=== PATIENT | female | born 1975 | race Caucasian/White ===

== ENCOUNTER 2022-11-15 08:50 | Outpatient (OUT) | payer OTHER, SELFPAY ==
--- NOTE | 2022-11-15 08:52 | MM_ITS ---
Patient: SUSHMA LEWIS Exam Date: 11/15/2022 : 1975 Gender:F Ordering : Non-Staff Physician Admission #: [id number] Family : Order #: [id number] CLICK HERE TO VIEW EXAM RADIOLOGY REPORT PROCEDURE: MM TOMOSYNTHESIS SCREENING BI COMPARISON: MG MAMM SCREEN ROHAN W CAD, 12/25/2018. MG MAMM SCREEN 3D ROHAN CAD, 02/02/2021. INDICATIONS: Calculator Name NCI Breast Cancer Risk Assessment Tool 5 Year Breast Cancer Risk 1.10% Lifetime Breast Cancer Risk 11.30% Personal Breast Cancer No Personal Ovarian Cancer No Treatments None Family Cancers Grandfather-maternal with prostate cancer at age 61. LOCATION: [facility] BREAST COMPOSITION: Scattered areas fibroglandular density. FINDINGS: DIAGNOSTIC CATEGORY 0--INCOMPLETE: NEED ADDITIONAL IMAGING EVALUATION. Scattered benign-appearing calcifications are present. RIGHT BREAST: New 8.6 x 5.2 mm ill defined nodule medial posterior breast on cc imaging only. Spot compression and ultrasound follow up is recommended. Axillary nodule, likely a normal lymph node, partially visualized. LEFT BREAST: No significant suspicious finding. RECOMMENDATIONS: ADDITIONAL MAMMOGRAPHIC VIEWS REQUIRED: RIGHT BREAST - spot compression view ULTRASOUND: RIGHT BREAST PLEASE NOTE: A NORMAL MAMMOGRAM DOES NOT EXCLUDE THE POSSIBILITY OF BREAST CANCER. A CLINICALLY SUSPICIOUS PALPABLE LUMP SHOULD BE BIOPSIED. Dictated by: Gary Smith MD on 11/15/2022 at 10:43 Approved by: Gary Smith MD on 11/15/2022 at 10:47
--- NOTE | 2022-11-15 09:14 | US_ITS ---
The [address] [address] Patient Name: SUSHMA LEWIS MRN: [id number] date: 1975 Sex: F Assigned Patient Location: [facility] Current Patient Location: [facility] Accession/Order Number: [id number] Exam Date: 11/15/2022 09:15 Report Date: 11/15/2022 09:47 At the request of: NON-STAFF PHYSICIAN Procedure: US thyroid EXAMINATION: US thyroid HISTORY: History Of Thyroid Cancer, Micro Carcinoma COMPARISON: No relevant comparison available. TECHNIQUE: Sonographic images of the thyroid gland were obtained. FINDINGS: The thyroid gland is not definitively visualized consistent with provided history of thyroidectomy in 2018. Identified in the left thyroid fossa is a focal area of hypoechogenicity measuring 0.6 x 0.3 x 0.2 cm, nonspecific US/US thyroid IMPRESSION: 0.6 cm area of hypoechogenicity in the left thyroid fossa, nonspecific Electronically authenticated by: MULUGETA CARRERA Date: 11/15/2022 09:47
== END 2022-11-15 08:51 | disposition home or self-care (01) ==
LOC: MAMMO 08:50
DX: Z12.31 Encounter for screening mammogram for malignant neoplasm of breast (principal); E03.9 Hypothyroidism, unspecified; Z80.42 Family history of malignant neoplasm of prostate; R92.8 Other abnormal and inconclusive findings on diagnostic imaging of breast
CPT/HCPCS: 76536; 77063; 77067

== ENCOUNTER 2022-12-06 10:50 | Outpatient (OUT) | payer OTHER, SELFPAY ==
--- NOTE | 2022-12-06 10:55 | US_ITS ---
Patient: SUSHMA LEWIS Exam Date: 12/06/2022 : 1975 Gender:F Ordering : DR Wilman Griffiths . Admission #: [id number] Family : Non-Staff Physician Order #: [id number] CLICK HERE TO VIEW EXAM RADIOLOGY REPORT PROCEDURE: MM DIAGNOSTIC MAMMO UNILAT RT, 12/06/2022, 10:44 US BREAST RT LIMITED, 12/06/2022, 11:15 COMPARISON: MM TOMOSYNTHESIS SCREENING BI, 11/15/2022. INDICATIONS: Abnormal mammogram R92.8 Calculator Name NCI Breast Cancer Risk Assessment Tool 5 Year Breast Cancer Risk 1.10% Lifetime Breast Cancer Risk 11.10% Personal Breast Cancer No Personal Ovarian Cancer No Treatments None Family Cancers Grandfather-maternal with prostate cancer at age 61. LOCATION: [facility] [place] BREAST COMPOSITION: Scattered areas fibroglandular density. FINDINGS: DIAGNOSTIC CATEGORY 3--PROBABLY BENIGN FINDING. THE FOLLOWING FINDING(S) HAS A HIGH PROBABILITY OF A BENIGN ETIOLOGY: [place] marker on the left and breast indicates a skin lesion. Deep to this triangle markers is an 8.6 x 5.3 mm well-circumscribed oval nodule. Ultrasound demonstrates a 5.2 x 2.7 x 7.4 mm heterogeneous lesion reason the skin superficial to the subcutaneous fat pending peripheral hypoechogenicity and central mixed anechoic and hypoechogenic features the. I favor epidermal inclusion or sebaceous cyst. Further evaluation should be based on physical and clinical exam. RECOMMENDATIONS: CLINICAL EVALUATION. PLEASE NOTE: A NORMAL MAMMOGRAM DOES NOT EXCLUDE THE POSSIBILITY OF BREAST CANCER. A CLINICALLY SUSPICIOUS PALPABLE LUMP SHOULD BE BIOPSIED. Dictated by: Gary Smith MD on 12/06/2022 at 11:37 Approved by: Gary Smith MD on 12/06/2022 at 11:40
== END 2022-12-06 10:51 | disposition home or self-care (01) ==
LOC: MAMMO 10:51
PROVIDERS: Visit Provider Obstetrics & Gynecology
DX: R92.8 Other abnormal and inconclusive findings on diagnostic imaging of breast (principal)
CPT/HCPCS: 76642; 77065

== ENCOUNTER 2023-03-22 19:22 | Outpatient (REF) | payer OTHER, SELFPAY ==
[2023-03-28 15:13] LABS: Age Gdln ACOG Testing Note (.); HPV Aptima Negative (Negative); IGP, Aptima HPV, rfx 16/18,45 Note (.)
== END 2023-03-22 19:23 | disposition home or self-care (01) ==
LOC: LAB 19:22
PROVIDERS: Visit Provider Obstetrics & Gynecology
DX: Z01.419 Encounter for gynecological examination (general) (routine) without abnormal findings (principal)
CPT/HCPCS: 87624; G0145

== ENCOUNTER 2023-10-19 14:00 | Outpatient (OUT) | payer OTHER, SELFPAY ==
--- NOTE | 2023-10-19 | MM_ITS ---
Patient Name: SUSHMA LEWIS MR#: [id number] : 1975 Exam Date: 10/19/2023 Ordering Doctor: DR Wilman Griffiths . RADIOLOGY REPORT PROCEDURE: MM TOMOSYNTHESIS DIAGNOSTIC BI, 10/19/2023, 14:19 US BREAST RT LIMITED, 10/19/2023, 14:52 COMPARISON: US BREAST RT LIMITED, 12/06/2022. MM DIAGNOSTIC MAMMO UNILAT RT, 12/06/2022. INDICATIONS: Screening for malignanat neoplasm Calculator Name NCI Breast Cancer Risk Assessment Tool 5 Year Breast Cancer Risk 1.10% Lifetime Breast Cancer Risk 11.10% Personal Breast Cancer No Personal Ovarian Cancer No Treatments None Family Cancers Grandfather-maternal with prostate cancer at age 61. LOCATION: [facility] BREAST COMPOSITION: There are scattered areas of fibroglandular density. FINDINGS: DIAGNOSTIC CATEGORY 2--BENIGN FINDING. NO CHANGE FROM COMPARISON. Scattered benign-appearing nodules are present. Scattered benign-appearing calcifications are present. Scattered benign-appearing lymph nodes are present. RIGHT BREAST: In the region of the patient's skin tag upper inner quadrant, posterior breast no mammographic abnormality is observed. Ultrasound demonstrates at the 2 o'clock position a 4.2 x 2.4 x 5.3 mm area of hypo echogenicity with anterior hyperechogenicity possibly calcification but no internal blood flow. This lesion appears stable from the prior exam. The differential diagnosis is unchanged and I favor a benign process such as a sebaceous or epidermal inclusion cyst LEFT BREAST: No significant suspicious finding. RECOMMENDATIONS: ROUTINE MAMMOGRAM AND CLINICAL EVALUATION IN 12 MONTHS. PLEASE NOTE: A NORMAL MAMMOGRAM DOES NOT EXCLUDE THE POSSIBILITY OF BREAST CANCER. A CLINICALLY SUSPICIOUS PALPABLE LUMP SHOULD BE BIOPSIED. Dictated by: Gary Smith MD on 10/19/2023 at 16:00 Approved by: Gary Smith MD on 10/19/2023 at 16:02
== END 2023-10-19 14:01 | disposition home or self-care (01) ==
LOC: MAMMO 14:01
PROVIDERS: Visit Provider Obstetrics & Gynecology
DX: Z12.31 Encounter for screening mammogram for malignant neoplasm of breast (principal); R92.8 Other abnormal and inconclusive findings on diagnostic imaging of breast; Z80.42 Family history of malignant neoplasm of prostate
CPT/HCPCS: 76642; 77066; G0279

== ENCOUNTER 2023-10-29 11:24 | Outpatient (OUT) | payer OTHER, SELFPAY ==
--- NOTE | 2023-10-29 11:30 | US_ITS ---
The [address] [address] Patient Name: SUSHMA LEWIS MRN: [id number] date: 1975 Sex: F Assigned Patient Location: [place] Current Patient Location: [place] Accession/Order Number: [id number] Exam Date: 10/29/2023 11:35 Report Date: 10/29/2023 13:02 At the request of: NON-STAFF PHYSICIAN Procedure: US thyroid EXAMINATION: US thyroid HISTORY: Hypoparathyroidism After Surgical Removal Of Thyroid COMPARISON: 11/15/2022 TECHNIQUE: Sonographic images of the thyroid gland were obtained. FINDINGS: Identified in the right thyroid fossa is a 2.0 x 0.6 x 1.2 cm oval lymph node with normal thin cortex measuring measuring 1.8 mm and hypervascular hyperechogenic hilum Identified in the left thyroid fossa is a area of hypoechogenicity measuring 0.6 x 0.2 x 0.3 cm, nonspecific US/US thyroid IMPRESSION: Normal size normal morphology right lymph node 6 mm indeterminate lesion left thyroid fossa, stable from the prior exam. Stability over the course of one year suggests a benign process Electronically authenticated by: MULUGETA CARRERA Date: 10/29/2023 13:02
--- OUTSIDE RECORDS SUMMARY | 2023-10-29 11:46 | XMS_ITS | CCD ---
Author Organization [facility] Care Team Providers Care Merchandise Collector Name Role Phone DR EDITH JOHN Admitting Unavailable DORA, DR SHARMA Attending Unavailable GILA, DR SOTELO A Primary Care Unavailable DORA, DR SHARMA Consulting Unavailable DORA, DR SHARMA Admitting Unavailable DORA, DR SHARMA Attending Unavailable GILA, DR DEEPAK Dao Primary Care Unavailable DORA, DR SHARMA Consulting Unavailable None, No PCP Unavailable Unavailable Unavailable Unavailable Dr. Deepak Rice Referring Unavaila ble Finn, Dr. Ayala Attending Unavailable Finn, Dr. Ayala Referring Unavailable Finn, Dr. Ayala Attending Unavailable DEEPAK RICE Primary Care Unavailable Fleming PACAramis Attending Unavailable Fleming PACAramis Admitting Unavailable DEEPAK RICE Primary Care Unavailable EDITH JOHN Attending Unavailable Allergies Allergy Classification Reported Allergen(s) Allergy Type Date of Onset Reaction(s) Facility (2 sources) Amoxicillin; Translations: [amoxicillin] Drug Allergy [facility] Repository (6 sources) Amoxicillin; Translations: [Amoxicillin TABS] Drug Allergy [id number] Work Phone: Medications Completed/Discontinued Medications Medication Drug Class(es) Dates Sig (Normalized) Sig (Original) citalopram 10 mg oral tablet (2 sources) Serotonin Reuptake Inhibitor CeleXA 10 MG Oral Tablet Quantity: 0 Refills: 0 Ordered: 23-Nov-2022 DO Active ergocalciferol 1.25 mg oral capsule (5 sources) Provitamin D2 Compound Start: 05-24-2022 take 1 capsule by mouth every week Ergocalciferol 1.25 MG (74810 UT) Oral Capsule TAKE 1 CAPSULE WEEKLY. Quantity: 13 Refills: 3 Ordered: 23-Nov-2022 Jamie Finn MD Start : 24-May-2022 Active levothyroxine sodium 0.125 mg oral tablet (2 sources) l-Thyroxine Start: 10-25-2022 take 1 tablet by mouth once daily Levothyroxine Sodium 125 MCG Oral Tablet TAKE 1 TABLET DAILY. Quantity: 90 Refills: 2 Ordered: 23-Nov-2022 Jamie Finn MD Start : 25-Oct-2022 Active lisinopril 5 mg oral tablet (2 sources) Angiotensin Converting Enzyme Inhibitor Lisinopril 5 MG Oral Tablet Quantity: 0 Refills: 0 Ordered: 23-Nov-2022 DO Active 24 hr metFORMIN hydrochloride 500 mg extended release oral tablet (2 sources) Biguanide take 1 tablet by mouth every twenty-four hours metFORMIN HCl ER 500 MG Oral Tablet Extended Release 24 Hour Quantity: 0 Refills: 0 Ordered: 23-Nov-2022 DO Active Slynd TABS (2 sources) Slynd TABS Quantity: 0 Refills: 0 Ordered: 23-Nov-2022 DO Active Problems Problem Classification Problem Date Documented Date Episodic/Chronic Cancer of thyroid (8 sources) Papillary thyroid carcinoma; Translations: [Malignant neoplasm of thyroid gland] Chronic Complications of surgical procedures or medical care (6 sources) Postprocedural hypoparathyroidism; Translations: [Hypoparathyroidism after surgical removal of thyroid gland] Chronic Diabetes mellitus without complication (6 sources) Prediabetes; Translations: [Other abnormal glucose] Episodic Immunizations and screening for infectious disease (1 source) Encounter for screening for human papillomavirus (HPV); Translations: [ENC SCREENING HUMAN PAPILLOMAVIRUS] Onset: 03-14-2022 Episodic Nutritional deficiencies (5 sources) Vitamin D deficiency; Translations: [Unspecified vitamin D deficiency] Chronic Other screening for suspected conditions (not mental disorders or infectious disease) (4 sources) Encounter for screening for malignant neoplasm of cervix; Translations: [ENC SCREENING MALIG NEOPLASM CERV] Onset: 03-13-2022 Episodic Thyroid disorders (7 sources) Hypothyroidism, unspecified; Translations: [Hypothyroidism] Onset: 03-14-2022 Chronic Results Test Name Value Interpretation Reference Range Facility HgbA1c Standardon 12-01-2022 .Hb 14.6 Invalid Interpretation Code [facility] Comment on above: Performed By: #### 1 [id number] #### [facility] (DEFAULT) [address] [place] [address] .Hgb A1c 0.58 g/dL Invalid Interpretation Code [facility] Comment on above: Performed By: #### 1 [id number] #### [facility] (DEFAULT) [address] [place] [address] Glucose [Mass/Vol] 117 mg/dL Invalid Interpretation Code [facility] Comment on above: Performed By: #### 1 [id number] #### [facility] (DEFAULT) [address] [place] [address] HbA1c (Bld) [Mass fraction] 5.7 % Normal 4.6-6.2 [facility] Comment on above: Performed By: #### 1 [id number] #### [facility] (DEFAULT) [address] [place] [address] Chart Updateon 11-30-2022 Chart Update Chart Update US thyroid reviewed 11/15/22 - Non specific 0.6 cm hypoechoic left thyroid area which seems non specific TSH 0.42 on 11/28/22 Signatures Electronically signed by : Jamie Finn MD; Nov 30 2022 4:13PM EST (Author) Normal Touchworks Coding Summaryon 11-29-2022 Coding Summary HTMLBase 64 XdlqdtikCIl9bOc+PGhl YWQ+YN6HUVXgA40zvLNw tC7eN6ZCOLmOHskwEMME YFdMJbFvfiXiRJ1haLAt ZXJu IC8+IK7lESLdOhcrzSZz q8J2hKC1A95cbn9cNGjj qWG3MRNfFuXuvkmyv5ve nYe8PNfyAdfnDiZe ECOmoY23RJA2dQ11Xi25 aLDjxVThl7hexJr1HcQm JBXwVVD4bXbpLQcap0Ss MGPtQ67djIEmh0F6 IGNvbGxhcHNlOyBlbXB0 wY8pMCjtknsyz5npplov Wme6ih97wLAqf1L2vBN6 N4ZmzlW3DKWyiUUy AwqjbECXpM8mikowx2vi geolGdAlJDIoGWl4HBv5 LCPmhYtjSfKhSD09IIY1 HLDkrgNcD1RbZCOd tMtwIdL3d4V4Vy5BO8SK WmqtA8ZNYQAYCKgxfVE+ ZU15fs39H2QrGukyRwn6 ACEgDCS0rNW9xB9f KCVeGFatv3B6pGE5R1Bd kaRoxx2ki2ufPLSpWSaz R93xqKQnh3O1UFQesCB8 HPRbxWntNoEyaF10 Oyc+QEKaqSfch0RaZsmq r2rgt3scaNe8FqttCGNl eyCyaZepFLL8x3VuEq1n YEOawLU8fWU1yR4y JiWmFwJ3RGobL708KkVn uYFnMswfQ88jG0FxcAC+ RFQaYiw3PQYzvNmlIZ7x R3VjTDUmuoasyIBt pYcqHO8qKPWxllplHFLz pZ0rSQHsP4j3QmTsWkN0 RYxxT9XcXNKpdlgjEp33 cO2rLpLmKzC2FYah I3SepcW3MZAiaGHcTFmv GXB4Q42mp0L2LUUqGEXp SZJ7jSE3hO6qnSzhaing bGVmdDsgdmVydGlj LEykAPilG071HDNagOpy PkNvZGluZyBEYXRlOiAg MDgvMDkvMjAyMzwvdGQ+ XHOqTCW8sDdsMOFm uBKnXZdhLd9tyNzhzGhk HM3bPPFniyyiUKFahA3q IAZtdOWjwCqgWM1yKTGs carkr468GrZtHTJ5 WIVmeYJvZ0NhvS4fZeJl AEIgQPPaW2AoaRJpQJvl H384OStkQfL7QTXulwMh T9ZnROEodKhqHiQ7 j0L9Fr1Xr5RbnmdyN7Zr vXIoYpDwXgevEIz5C9Ay PjwvdHI+JN67FATqUM98 PXu8MZE5tMymHFqo MEFoZ7HrmL1iWrMaEBEg ZGRkOyc+PHRhYmxlIHdp ZHRoPScxMDAlJyBzdHls ZF1vWb6kDNOaYDVs dJpfxKDaMmPnu7qnHBZt LOroKK6bbFhzW2VphFI3 PIUgi4k2Yk26T02oF8Zz dXA+UUXhxMH6pMN0 xI9qLmPmMsZ7JJwpZ824 KnLrzUQyEtvyn0sgq3pt gAw5GlF1XPMnxkXnkStr KYP0u4NcGx16J98b IHdpZHRoPSIxNSUiIHZh nPpoaj0sgG5sQe8+PGNv bNH3jYV1dH0qDgYsUsV4 BYnpR956UdXzyUCi Vjjwm9dhe2jdrGi1ZwGe XWYqdcTsxOkfBHJ4z0Zc Ht13Y4MxmWlcy1NqDrq7 we78xAHlj2B0jJU0 N9KvGZIlqjqxuREndScg VT8qHOKxwngvDLBadV4k KPWbK9l6MiUqFtD9FEwd N0VubcI8LLIdoEHq SKAeaWDAfQ1ymirzh1lz vimwLxLlPDZmUWp0DWs5 QMYogBauLuLdTSW2UuN2 YNF4fBBffE9emFbd hemgoT7rXam+YNK8gRIy bGYXOD6uUwmqhRT+PHRk FVD0zRhqOHcyTVNnjL5c ZTIxN1v0FwTaBqF0 YKieJ9DvohW1PTSyyQTh APSyrFGRdE0gwzlys0ke lgdhBmTwTTJvAFg4KKr9 LWFsaWduOiBsZWZ0 UyX3FZD4tEBnmM2asKwm douxdN1yJdj+QmlydGgg IQL5EOz8E5NgTxj1IQTa bXwzYP6ahXFhWTcw Xi5teXoukRiuQF0tGJZl qvgcz771NjVac0qtQUAz pVPbZIvgLLI8Y30ps5G7 YUSqEKKtHEH9fWM3 kE8deAkonrubnKYkeWpg tuUsbXwvSOtkMFmiA840 RPOxxVjeZjKsHCb3S0Wn Wlr0HIPykHgmII8q uNKlPAaiGa3niRlhaYev LG6aYGNqlzedh083QkYv q1cwHSMgdTBeVOoyZIX1 Y33hi3K9ANOoTHQy RQH1qTD8bV5wsKcwtonr bGVmdDsgdmVydGljYWwt YDkoB861RVFbzOofOrEl kOg8E1BfZkx4FOYs jUrwVR7chIKyZZqoSr6d kJebaWceWY3gEPKyhbxj u163WeGoe5yxSLPanRUs KEhhWXY9H27fj2H7 PNOuIVVaLAF9qKS9nI7q bGlnbjogbGVmdDsgdmVy nPrkDRfgAEooB236VUHi cDsnPlBhdGllbnQg MObvQNd1I2GyFaktqIB+ CK19NQDwTB93yZIvmJUu r1btcEp1VzOlWUHlGNF0 iUtpEZqdh4IsRQEl A14fmUKaq4O2NZLvmYok tGSvVqMdbFS7mZ0vYWbz xwkmw1ytyqykJelst0pr mu89hC34K01yOVfv ZHRoPSIzMCUiIHZhbGln jf3qvY5mBd9+PGNvbCB3 eJV5qL9rUHIfFkJ6IKpk Y175OnUwbQRcZoee y8kmy5qhbOd6TnS4YHPr xbKoeAskNDM9t0QyWc39 H19lPTonIPCcCKPtQDJn FDMzsRnxyw4gfG3k Ii8+WCOciOY1gPF9qA3l JfMrYoW9JGnlL667IuIq zQKwUtidV20rZ8PhhUB+ EVGiZzx0RSGfxBtj PA3gfNOjWPotTb1pTEW4 GwLwJlMnZNieK3HmUEEr sjadhtfqnJO8NJIzCOLu oW08Nd9vdLbsTLRn lPFGoW4wblwjl0pbauvx VpUmBKHhEFa3VXb9SBRq fRqlSzHbVMB9TwB0VWT0 vFEcgE2emLfhhbzw uX4wF1BuVWUqexplYv27 kG2bInGqPxP8DPqrSwu+ X25RDJacMB5CPCOIUUMO PD97QR23lFDai8R0 kCC3E0DrMZZunywkurdp kRW8UHDaMLVciZ29hOCw BStvXi2rk7Y1q164DUJb NDYgfB32Fg6quRps WPBewNYTgD7nlevyw3gd ggfmGcSwIWKkXPf9UPm6 REMoxCnwEoIbOIP4YzU1 DDD6mNRtyC1ghSek kmwqlK9lFrh+MDcvMzEv SWz8NZoqiXT+PHRkIHN0 iJtmGOqeYOOipN1pAQHy X4p4XwPkGcV7UJgp J6HyHSNemjsgCi97lS7w RfGnDlC5YVovS5ReqrA4 CYYesKFyMHtdSPT0A94b e9L0WUZkRKExTMY7 vPF2nW1vvHkxvlrsuXLs dDsgdmVydGljYWwtYWxp K411OJZqbDluOfK9QYhz XGXxUV13GR97qSEj e1V6bAF1Z9AmITTcqjyv ixsjiDI9UCGpJTHhfX68 sTIvWZysZd9go4F0w628 VABiWAAogJ47Qi6y qHljMUKwvJZDbV7yhmpo n0ttcmxyKhUxJUVbXDd3 DRi5ITGypSmtVxOfSSG3 DrO2JZU6cIEccE3a lNtvatptrC8jBag+RkVN SUaLMI76CF42pWPyk8R3 zLT7E5SbWMYcffozrbwa aIQ8JQIlRJOmrG56 tQGlVLyyYm5qh6V6y149 YGUwMDJgoV96Jp6xxFzs ULZyhXGZsQ7ftljps2fp cjogIzAwMDAwMDt0 TRv8SLGylPytMnJaJOR2 UzQ9NIG7qCZfrB3onTog urdbvO8uAnj+X2E6D1Cl PjwvdHI+SF53QITp XG36hJAsnFJoc5glmFz3 KnFfYTGhKCY5gOczLRrx y3QdBNZbT65diSAxc6I7 IGNvbGxhcHNlOyBl zAK3iE5tWYvvgvqbu8im fufyOxkcj4roup99mV44 X47dMItiGJVsSPKgWYLv OABbsYvrxi4kkX5g Ii8+QMZkbWD7nEO6mJ5n UwYkGnY8FGlfF682OeIw wVGbCmmpk6wjj9wmdGj9 IjIwJSIgdmFsaWdu WDV7j3IfFy66R83gKJwg ZHRoPSIyMCUiIHZhbGln lh8gyR7wKt2+TC6lt7bv nr33uP89mFV+PHRk EZV8gAljRMlvRMEleP4n ORedPbT9XXVcGjWnnN04 pSZvGXfrJy1crBwcdDop JL9cYMLbddfvi828 NzIfm4roXSGwyLPwIYyd OMQ5W49cv3N4LGChBOVb TRG8oDT0tF3gvFofcdpm bGVmdDsgdmVydGlj WGswHNiaR496HEJouEwm ElGxaTYuB8fppiPMIT8l OjwvdGQ+DJDnGDG8oMmy OQihKCHgxL3oXKSp Y5z9InDlQqW3AQnmA6Yj ahB3VMMhyZRlPWNzaVWZ oH6lpriwo7rsijlfTvMq UWExOLm2YFr1WYAa gVdiFgDiEQI4BvY4GHV3 sZFxvA8muOqjytrxvK9c Oyc+RklOOjwvdGQ+PHRk VBC3pFqjWWbbVTXb yM6pPBPoP7f0RaWzTwR5 VUpmN9UcqgU4XOUdvMRu GNYctIMGsW1ctgljc2uj cjogIzAwMDAwMDt0 WQb1ZUOzbOrnUuBvCBD2 WuV6PBA7fELvkZ6tiXzm dniryE1jOvt+TVJOOjwv dGQ+LUDcIAO5hXos BEsoISLkvO0fCGObX5s7 SnCvWmG9YKwcS3ZokxH1 GFIbsJJuFGEeaGCDnJ5s lppxh3ksnqisUfVb TXVwYYy8UIq5OYJvzSoz EmViHXI5XrY3EJR5wQLm nM4ytRcvwdejyP8pDry+ NFF2TDS7DK51OJ44 R3HvLmozhXRqlVL+PHRh YmxlIHdpZHRoPScxMDAl WuXpiCkmYZ7sPg4wEYIe LWNvbGxhcHNlOiBj b2x (more content not included)... Normal [facility] Thyroid Antibodies LCon 08-0 Thyroglobulin Antibody LC <1.0 Invalid Interpretation Code 0.0-0.9 [facility] Comment on above: Result Comment: Thyr oglobulin Antibody measured by [employer] Performed At: [facility] [address] [place], [place] [id number] Christine Lin PhD Ph:[phone] Performed By: #### 1 [id number] #### [facility] (DEFAULT) [address] [place] [id number] Thyroid Peroxidase (TPO) Ab LC 19 IU/mL Invalid Interpretation Code 0-34 [facility] Comment on above: Performed By: #### 1 [id number] #### [facility] (DEFAULT) [address] [place] [address] Thyroxine (T4) Free, Direct, LCon 11-29-2022 T4,Free(Direct) LC 1.75 ng/dL Invalid Interpretation Code 0.82-1.77 [facility] Comment on above: Result Comment: Perf ormed At: [facility] [address] [place], [place] [id number] Christine Lin PhD Ph:[phone] Performed By: #### 1 [id number] #### [facility] (DEFAULT) [address] [place] [id number] Provider Orderson 11-28-2022 Provider Orders [id number] #[id number] Normal [facility] TSHon 11-28-2022 TSH Qn 0.42 m[IU]/L Low 0.45-5.33 [facility] Comment on above: Performed By: #### 1 [id number] #### [facility] (DEFAULT) [address] [place] [address] Follow Up (Endocrinology)on 11-23-2022 Follow Up (Endocrinology) Diagnoses/Problems Assessed Hypothyroidism (244.9) (E03.9) Pre-diabetes (790.29) (R73.03) Papillary carcinoma of thyroid (193) (C73) Orders Hypothyroidism Renew: Levothyroxine Sodium 125 MCG Oral Tablet; TAKE 1 TABLET DAILY Rx By: Jamie Finn; Dispense: 0 Days ; #:90 Tablet; Refill: 2;For: Hypothyroidism; CARIDAD = N; Verified Transmission to [facility] 1445; Last Updated By: M.Setek; 11/23/2022 1:16:32 PM Hemoglobin A1C; Status:Active; Requested for:23Nov2022; Perform:Lab Services - Lab To Draw (Blood Test); Due:21Feb2023;Ordere d; For:Hypothyroidism; Ordered By:Jamie Finn; T4 - Free Thyroxine, Serum; Status:Active; Requested for:23Nov2022; Perform:Lab Services - Lab To Draw (Blood Test); Due:21Feb2023;Ordere d; For:Hypothyroidism; Ordered By:Jamie Finn; THYROGLOBULIN AND ANTI-THYRGLOBULIN AB; Status:Active; Requested for:23Nov2022; Perform:Lab Services - Lab To Draw (Blood Test); Due:21Feb2023;Ordere d; For:Hypothyroidism; Ordered By:Jamie Finn; TSH - Thyroid Stimulating Hormone, Serum; Status:Active; Requested for:23Nov2022; Perform:Lab Services - Lab To Draw (Blood Test); Due:21Feb2023;Ordere d; For:Hypothyroidism; Ordered By:Jamie Finn; Vitamin D deficiency Renew: Ergocalciferol 1.25 MG (70826 UT) Oral Capsule; TAKE 1 CAPSULE WEEKLY Rx By: Jamie Finn; Dispense: 90 Days ; #:13 Capsule; Refill: 3;For: Vitamin D deficiency; CARIDAD = N; Verified Transmission to [facility] 1445; Last Updated By: M.Setek; 11/23/2022 1:16:29 PM Provider Impressions 47 yo woman came for eval and treatment of thyroid cancer All records at [facility] She mentions in Summer 2017 she was found to have thyroid nodules and goiter. she did follow with ENT with initial plan to do biopsy but given her US features as underwent TTx in 2017 PATHOLOGY- 04/02/2013- PTC 2.2 mm ( microPTC) unifocal, follicular variant margins neg, one LN which was benign , no lymphovascular invasion no I 131 Rx she denies any repeat imaging after the surgery , denies any post op complications she did follow ENt and endo in past Outside labs : 03/13/22 - tsh 0.990 free t4- 1.46 free t3 was 2.25 in 2018- TG was 12, TPO ab 320s tg 12 in 2018 2022 TSH 0.73 TG < 0.1 ATG neg PLAN : - will check TFT TG ATg today , for now goal TSH < 2 - ordered US neck last visit - she mentions she did it in Spring , advised to fax results to me # preDM- mentions A1c was 5.8 %, on metformin , managed with PCP , repeat # vit D def: 50 K weekly , continue same RTc 6m FH- no thyroid cancer SH- lives one hr away going through divorce kids- 1 - boy - Nova 2 yo - became after thyriod surgery when menstruations were regular , 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 Patient here with Mother, Belinda PCP: Dr. Rice total thyroid removed 2018 [facility]- micro carcinoma; but no treatment levothyroxine 125mcg qd; takes thyroid medication correctly History of Present Illnessplease see HPI details in PI ROS- feels well overall. no tremors no palpitations 12 point ROS negative except as mentioned. PE : General: Well-developed, well-nourished, appearing stated age. Alert, oriented to time, place, person, and situation. Skin warm, dry, with good turgor Head: Normocephalic without scalp lesions. Ears and nose without deformity Eyes: Conjunctivae pink, sclerae white, without jaundice. Neck: Neck supple with full range of motion (ROM). non palpable thyroid. cervical LN on R level 5 palpated Chest AND back: No abnormal curvature of spine. Lungs: Respiratory excursions full and symmetrical. Cardiovascular: Regular rate and rhythm. 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) Pre-diabetes (790.29) (R73.03) Vitamin D deficiency (268.9) (E55.9) Family History Mother Family history of thyroid disease (V18.19) (Z83.49) Maternal Grandmother Family history of thyroid disease (V18.19) (Z83.49) Paternal Grandmother Family history of thyroid disease (V18.19) (Z83.49) Social History Problems Former smoker (V15.82) (Z87.891) No illicit drug use Occasional alcohol use Allergies Medication Amoxicillin TABS Recorded By: Aramis Caputo; 05/24/2022 1:40:53 PM Current Meds Medication NameInstruction CeleXA 10 MG Oral Tablet Ergocalciferol 1.25 MG (70030 UT) Oral CapsuleTAKE 1 CAPSULE WEEKLY. Levothyroxine Sodium 125 MCG Oral TabletTAKE 1 TABLET DAILY. Lisinopril 5 MG Oral Tablet metFORMIN HCl ER 500 MG Oral Tablet Extended Release 24 Hour Slynd TABS Vitals Vital Signs Recorded: 23Nov2022 12:55PM Sy (more content not included)... Normal Touchworks C Throaton 06-16-2022 C Throat Ordered by Discern. Normal throat aris isolated No pathogens isolated Normal [facility] Comment on above: Performed By: #### 4 [id number] #### [facility] (DEFAULT) [address] [place] [address] Coding Summaryon 06-15-2022 Coding Summary HTMLBase 64 EggjnqrpMZl9oQe+PGhl YWQ+ZS5LOYJtJ73jkSZu iN2OI0zMMF2JUGITTGPJ TY9VPB5lpZX6AUznE1Rz biAv JktnkTTwET97DSh3ZWX3 rEmjNYwkxW9ilZEdC8m0 UcOfVH30qM13JEkfWCQb UjG5GxNxdfhdxDXk B1rwIqEvzIStTew+PHRh YmxlIHdpZHRoPScxMDAl ZhHehYosDY7mQo7dAUVt LWNvbGxhcHNlOiBj e5ksCSGzFEnsAI3xgHky V5IcrFI5DQPaj4n9Ma93 dHI+AXMnYPE8zPzxWOhg h130SnQen9ceEQX6 dZQxDShjDCE6I57xc4P4 BLEjOEPmQXC3oDD6fS0m sDxxecimP1ZgoSOcAaT1 QAR7xRLspC6iaRat nnyztS0pHhi+Y63JYZ8Z NRBVOQ2AOut5L1MaAuvi dHI+ZI26FDCtBH09tNCb iJObd1lysNw4LtOa SDPyQJX1bMrbIRyqs2Of EPRwH00czVVdy2J7CZDr cYbeuUVsKcIxnFV7vO7x DYudhyygl8qlymez Kxccr9qeya92kG68I72x DRenYSUfDBV3AULyWXGt lYsvbn9lhH2fMu0+IDxj l4uez6eigXl1SaBa GMQrmqZtoFcpGWH5y5Ik Uf37F7XmaXpgp2ZxTzi0 sk53cRSdt7C9oIC0EAro MALmdG3xWHgwEiA4 EWDtSfQmfD33xMJmHZxk Zn8uzSalvNulZG5jGSZa pxsjTDXtrL4mKYFqeDUp yXauKO5kDOQyiina k691IeGzWOZ4NVHgsXKm P0PzxB2zCrHkSQAkJOQh A2KpmDRxNCoxV248NMum UjR1BKRmeoPyD3Ra ETBniYjnLnT6f2E1Jw0D i1ThsdxxXVN9TIoyJAYt RsSeCeYyJmR8U6OpThb6 RBCllGrfKG2aL2Ew XBTgdwiivhrbrLR4XREs QCBerX20aLCjICytIo2p v1M9m397EBAhOHKovT78 De1ibDliJQZhxLKR fC8nfayaf5aiqzgrJhBo SLFeLHe7XJb4PTJwaMfw YvTyRXE4UeY1MDU5uFGl jI4iwPfdjswwoV5n Oyc+R47prN0rGAQ0GXW7 jtxeRDSvufHpYS43TY71 B9KsUvrhcHErgJX+PGRp pcVaxCbpPI3jAmQk f9rdj6AaTUymL0ScLOVd VThxTqw7YACfWMY6yIO4 uP6kCHSmHJgtc9H3xGT9 U1UhvwHyfz5ds4lu RCFeKTcfT32hrZYti0M1 ZWNcrRB1OSKviWpbNkGk pA74Drv+UDKaoBbwi6Hv Hiiqa6smo3jinZy0 IjMwJSIgdmFsaWduPSJ0 z6JsIs02Y55mEHucASHm MZDmUCOvTBRbmIrpjr4n mP0oJu8+PGNvbCB3 aAR1dN3ePFCoWuK4FYpp B183TyLidQYnIclzk0hk k7xtbPy1OfVzAVFokaXc jRyfRRD4m3SsDz29 M06iEZybJWDjRIZyKGGs FXZrjBlpkd1hnE4uIg8+ UK4xk8doaf96kV24tBZ+ LNZbDAY1hGovRCmn LPWxtW6oBZyvOmE8NQMn KtJigC67qIOjYEqqEj1o vDoieVxlCE0zAUZdaawz n716EhIsl3unMQHe bZYaGDsyTJX9G51le9S3 BUQcUNYgORH0zOT2pQ9h bGlnbjogbGVmdDsgdmVy qHvwKRvyBHbnK273 IHRvcDsnPlBhdGllbnQg KmLjCXc8U5WdJpg9PEWc eFfkAI4pyBRoQUbiLu9s dSycpKijTX7rJAKa njmki619NbJnt1jmXXFt sNJsJGiaCTS6C36qf7O4 MVIhJCZrUWZ7yUS6mT7s bGlnbjogbGVmdDsg iiWteZkoYYjgXGubM974 IHRvcDsnPkJpcnRoIERh dNT6RT84QJ61gJQpb7P3 jNE0S3SkJKHifrrj ctxycUL8FUXdXLNseP37 Ef4vyKouBd8jVGUfOCV1 PGMdjLXhT6VlfK0fOnMy RPKoFJWcX7JpeEPo MHgrY811SJfvWyY9IDOu csXiM1DhLVNvxIkzHhQ4 b8T6Xh0XK4K6BM20KY94 zVYdx8M4mBU0T7Oa KHDeikcxadufiMV8YEUe BTWmhQ90Uq4taMvgVc1x WWPoZOK8HUXrvBCjZ2Ks uI8cErEoIWMpCCDs K4UquNRkZUppN306PVuh SrZ3AHPkloLaD3GzGHMa jSqzRmT2p9W8Zg0OBJk5 RF98KU39mCTqg6M6 sNJ4S9IjKKAjkqnqsgyg fKJ5RVIfYYNvrG74Br0t kNclQz9qQMIgMXS3WFAt aZHyA3GhrK6sToFz KVYtBVRiR6DehZRnAKgr X002XYilVcQ2RXBvfcTl Y6DeMZGkiLaxUkZ8t2H3 Qh6PUCKaSH45QFO3 lKV9UY85SN42T6NvZpet dGFibGU+PHRhYmxlIHdp ZHRoPScxMDAlJyBzdHls ZV5xWo9fPEEaPZFr oHbfvOVcRfFnr6bnECYt UVlsGK7glNqcX5ZlxLT1 EYTmd2b0Lb65L80uA8Bs dXA+BRPitAD9mFP9 nX6cFiCgHsV0IDujF470 TqFceWIgDoaxh9spw4ll pVj8MgX1AOTkbsYxzMay IUB8c0QkYz84V72j IHdpZHRoPSIxNSUiIHZh zDiqmh9pwZ1uQc4+PGNv rKL9iPE3hK7aEcGhQsW3 CRypX469QwPukYTc Uenuv2kpm8nfiCs6QzQd WSDbttGfdVfsHNO7s2Ap Ve63G5JtcFlun1LkEqg0 tg33vZYvr5Y1pWV0 Q7LbAHAqmlhxjUTpiWbb DH1gICXennbcHEYdwJ0i HEElS2c7YzCpBrK5CSrp B0BbbxG3JSYecFDl GItrMWG5A85gx0G2BKBn YSLcHBK7xYA9qR4teYuy bjogbGVmdDsgdmVydGlj RAdzWJevO538HDDj pLphFBPrtP2qTOXatZOb eExkJP5nFLGhppyrOayJ REFLLCBPTElWSUEgUjwv dGQ+XOReEEW6kLpj ZTzmSOOcxY3zHYVlS8f1 UhExQaF2CVgpS0TrVVHl acbuUy61wG9hTlPcPdC8 OVyvL0QlduB3QDLw dHOgCEmoOHO6U43is9O2 JAYtHQIzGUC4qVJ8zX0d bGlnbjogbGVmdDsgdmVy zRxjACloFVduZ509 ARAcbIovDdI0MrRtHqP9 SmU4M1LhQau0QJPqbKtk WL9crPLeTZggVd5kkMop nDcyFY1xFWAeibrs TVQxtY3jPZIbvQDlrXmv VM2vOGWlkohju922NxGl ZBC4SRQaaLOcI0ObcD0b FxFjKIZzSNEeH9Tf lVUbFMydV584XWbqBaW8 AEFtkeSoD3VrEGUueVdq IdL5y8L5Rp09MgGIKINp czwvdGQ+PHRkIHN0 kAesAQmwAPStaU1dZVMl Q3r0VbEeDzB0KFblK9Wo OYWcbthgNh47oU6bOrJb HgL7ZMqkY8JujuK1 TLBadJHkAIvtMDD8T51c r1S3EEFtCSHhLQD2bLW0 gZ8lzLemzvjvxFMefWws dmVydGljYWwtYWxp S740KHYvxKipFfOHFKSE RTwvdGQ+ZGSmNVA6oRlw RNnnOOBaxV4mYAHsE8j6 NrTuPdI9BTepM6Bn LLJpyhnsEo24sE7cJqDz WyG3PWzzX8LzqnG0IAGd fDKyFNqbXAT4D23mt5Z2 JTKhHLGaULM5fWC1 mY1cvEmnbskomCUreDwh drIhwLdoURaxTCjmU483 FCClvQfpHm7PTE64QT29 L5PiQnyepDUcqYC+ PHRhYmxlIHdpZHRoPScx RJAdBnDyzRonLR0jHd1z ZGVyLWNvbGxhcHNlOiBj s8nmRTIiUKoiPT9h pWluI5JbcZJ5RNBae7d9 Wc31M82jC5EyoRV+PGNv bPM7rTI9eZ2rIrAuJtK0 JYskM576OtAagTBi Szmls1sdx5vbqTf6OkBa TZXzggEscAybBAS5n6Ur Xy33I69gYTsfETRdDUAg QZDbEPSwtNgqho1c mR4sSx3+TBTjwOX5nFZ4 sP9lBlYnEbO0FNqzT232 FbGjyKJuUgheQ29wP9Sh dXA+TFOiFiy4HBQm mEbsCC8dmXZcDZgcTk3q ACG9IpMnPkUyAQovF9Zb XCQniovndzpfmFW6CFBf IDHfjI26Ci2miHfl Es7bFSWiSTW7SZKyiVWk I4NxsW9eWeDuOYUrJTVa V1EveDZmCGntN282MWlc ToT7PMBakuCmH7Gp BZPnzQuiTjG6e0T8Hs4X mTybtKGcPV6kWhEbJIy6 A2SbKdu1WFRneGmoEA8k jVYoYIdbDt7lzRda sPveXQ3oBJXomozkd795 OxGgy2duNKPxeMUeTRfv OAL7S51is2C0GJRuOODc MRA0yYQ6tH9pvBlq bjogbGVmdDsgdmVydGlj HTclFExzF356KGRwlVmk CwILRpy6Y1TeIhf8CIYk oVxyJL5hfTEjQBck Di5npGgylVbeGD0rSSDn zxbfx138KqZjd9atLWKk hOBjDQbjTLA6Q88pk2H1 QGLuYEOqXGR1jTE5 xZ4qrTrbhbgiqRDfiCzq psXwkBkuZGseVEfdT109 KJXayMqnFb4ECuc7F2Ju Xpv6ZAIxnNoxQU1d hUMxUBddYu9cbImupGud KN1mFRKtjdrvw321TuXt h0kmWSNmgYIrANxaATZ0 W41pv7L3UBJfENDm CNE2qCU1dL6csBpckxcu bGVmdDsgdmVydGljYWwt EOfgS616WRPumJpwHnFu eWVyOjwvdGQ+PC90 il73D6ZyOxjtDzg0NSXj RCQ7oRI0uG8rXBMyPQej x7E5sTG9U1RflsUpfw6a g6zgMMWuDKaqH69g bGF (more content not included)... Normal [facility] ED Clinical Summaryon 2022 ED Clinical Summary [facility] ? Urgent Care [address] [place], [place] [id number] Clinical Summary PERSON INFORMATION Name: SUSHMA LEWIS Age: 46 Years Sex: FEMALE : 1975 MRN: Acct#: Visit Reason: UC - Sore Throat; UC - Cough; UC - Cough; COUGH, CONGESTION, SORE THROAT, LT EAR PAIN Arrival: 06/13/2022 09:38:23 Discharge: 06/13/2022 11:00:00 LOS: 000 01:22 Check In: 06/13/2022 09:38:23 Checkout: 06/13/2022 11:00:00 Address: [address] [facility] [address] PCP: DEEPAK RICE MD PROVIDER INFORMATION Provider Role Assigned Unassigned January RN, Sasha ED Nurse 06/13/2022 09:41:28 Aramis Andrade ED PA 06/13/2022 10:02:56 VITALS INFORMATION Vital Sign Triage Latest Temperature Tympanic Temperature Temporal Artery Pulse Rate O2 Sat 98 % 98 % Respiratory Rate Blood Pressure /64 mmHg /64 mmHg MEDICAL INFORMATION Medications Given: Allergy Information: amoxicillin PHYSICIAN DOCUMENTATION DISCHARGE INFORMATION: Discharge Disposition: Home Discharge Location: Home PATIENT EDUCATION INFORMATION Instructions: Otitis Media, Adult; Sinusitis, Adult Follow-Up: With: Address: When: DEEPAK RICE [address], [place] [id number] [facility] (1) Within 2 to 4 days Comments: Diagnosis today of acute bacterial sinusitis, left acute otitis media, bilateral ear cerumen obstruction with irrigation- which will require antibiotic treatment. -Begin Azithromycin for the next 5 days with food, complete all. -To prevent GI upset and diarrhea strongly encourage use of probiotic such as lactobacillus. Begin a live culture yogurt such as Activia. -Patient has been instructed to begin Flonase nasal spray 1-2 sprays each nostril twice a day for the next 10 days. -Begin OTC Mucinex 600mg AM and PM x 10 days. -Take ugwn-oyr-[id number] Ibuprofen every 8 hours or Tylenol every 4 hours for sinus pain or discomfort. Seek additional medical care if worse, chest pain, shortness of breath, headache, fever over 101.5, worsening symptoms in any way. DIAGNOSIS: Acute left otitis media; Acute pansinusitis; Bilateral impacted cerumen Patient Understands: Yes - Patient/family/careg iver verbalizes understanding of instructions given Comment: Normal [facility] ED Patient Summaryon 023 ED Patient Summary [facility] ? Urgent Care [address] [place] [address] PATIENT DISCHARGE INSTRUCTIONS Patient Information Name: JOSHUA, SUSHMA R Age: 46 Years Date of : 1975 Reason For Visit: UC - Sore Throat; UC - Cough; UC - Cough; COUGH, CONGESTION, SORE THROAT, LT EAR PAIN Arrival Time: 06/13/2022 09:38:23 Primary Care Physician: DEEPAK RICE MD Attending Physician: Aramis Andrade Comment: Patient Education With: Address: When: DEEPAK RICE [address] [place] [id number] Business ([address] Within 2 to 4 days Comments: Diagnosis today of acute bacterial sinusitis, left acute otitis media, bilateral ear cerumen obstruction with irrigation- which will require antibiotic treatment. -Begin Azithromycin for the next 5 days with food, complete all. -To prevent GI upset and diarrhea strongly encourage use of probiotic such as lactobacillus. Begin a live culture yogurt such as Activia. -Patient has been instructed to begin Flonase nasal spray 1-2 sprays each nostril twice a day for the next 10 days. -Begin OTC Mucinex 600mg AM and PM x 10 days. -Take zpkx-mts-bnjtnie Ibuprofen every 8 hours or Tylenol every 4 hours for sinus pain or discomfort. Seek additional medical care if worse, chest pain, shortness of breath, headache, fever over 101.5, worsening symptoms in any way. Otitis Media, Adult Otitis media occurs when there is inflammation and fluid in the middle ear with signs and symptoms of an acute infection. The middle ear is a part of the ear that contains bones for hearing as well as air that helps send sounds to the brain. When infected fluid builds up in this space, it causes pressure and can lead to an ear infection. The eustachian tube connects the middle ear to the back of the nose (nasopharynx) and normally allows air into the middle ear. If the eustachian tube becomes blocked, fluid can build up and become infected. What are the causes? This condition is caused by a blockage in the eustachian tube. This can be caused by mucus or by swelling of the tube. Problems that can cause a blockage include: ? A cold or other upper respiratory infection. ? Allergies. ? An irritant, such as tobacco smoke. ? Enlarged adenoids. The adenoids are areas of soft tissue located high in the back of the throat, behind the nose and the roof of the mouth. They are part of the body's defense system (immune system). ? A mass in the nasopharynx. ? Damage to the ear caused by pressure changes (barotrauma). What increases the risk? You are more likely to develop this condition if you: ? Smoke or are exposed to tobacco smoke. ? Have an opening in the roof of your mouth (cleft palate). ? Have gastroesophageal reflux. ? Have an immune system disorder. What are the signs or symptoms? Symptoms of this condition include: ? Ear pain. ? Fever. ? Decreased hearing. ? Tiredness (lethargy). ? Fluid leaking from the ear, if the eardrum is ruptured or has burst. ? Ringing in the ear. How is this diagnosed? This condition is diagnosed with a physical exam. During the exam, your health care provider will use an instrument called an otoscope to look in your ear and check for redness, swelling, and fluid. He or she will also ask about your symptoms. Your health care provider may also order tests, such as: ? A pneumatic otoscopy. This is a test to check the movement of the eardrum. It is done by squeezing a small amount of air into the ear. ? A tympanogram. This is a test that shows how well the eardrum moves in response to air pressure in the ear canal. It provides a graph for your health care provider to review. How is this treated? This condition can go away on its own within 3?5 days. But if the condition is caused by a bacterial infection and does not go away on its own, or if it keeps coming back, your health care provider may: ? Prescribe antibiotic medicine to treat the infection. ? Prescribe or recommend medicines to control pain. Follow these instructions at home: ? Take ssxe-npp-wsyjpqe and prescription medicines only as told by your health care provider. ? If you were prescribed an antibiotic medicine, take it as told by your health care provider. Do not stop taking the antibiotic even if you start to feel better. ? Keep all follow-up visits. This is important. Contact a health care provider if: ? You have bleeding from your nose. ? There is a lump on your neck. ? You are not feeling better in 5 days. ? You feel worse instead of better. Get help right away if: ? You have severe pain that is not controlled with medicine. ? You have swelling, redness, or pain around your ear. ? You have stiffness in your neck. ? A part of your face is not moving (paralyzed). ? The bone behind your ear (mastoid bone) is tender when you (more content not included)... Normal [facility] Strep Aon 06-13-2022 Strep procedure control Pass Normal [facility] Comment on above: Performed By: #### [id number] #### [facility] (DEFAULT) [address] [place] [id number] Streptococcus A Negative Normal Negative [facility] Comment on above: Performed By: #### [id number] #### [facility] (DEFAULT) [address] [place] [id number] Urgent Care Note- Provideron 06-13-2022 Urgent Care Note- Provider Patient: SUSHMA LEWIS Age: 46 years Sex: FEMALE : 1975 Associated Diagnoses: Acute pansinusitis; Acute left otitis media; Bilateral impacted cerumen Author: Aramis Andrade Basic Information Time seen: Date & time 06/13/2022 10:06:00. History source: Patient. Arrival mode: Walking. History limitation: None. Additional information: Chief Complaint from Nursing Triage Note : Chief Complaint 06/13/2022 9:45 EST Chief Complaint Sore throat/nasal congestion and cough since 06/10, Lt ear pain X 24 hours with onset fever last pm 100.5 with cough becoming productive this am yellow/green phelgm . Patient is a pleasant 46-year-old female who presents to the urgent care with complaints of sinus congestion, cough, headache, sore throat, hoarse voice, and bilateral ear pain that is worse on the left for 3 days. Patient reports that she developed a fever of 100.5 last night. Patient reports that her nasal mucus is thick yellow/green. Patient reports that her son is sick at home with similar symptoms. Patient reports that she has sinus pressure in the frontal and maxillary area both as well as pressure on top of her head. Also reports that she has pain/pressure in her front top teeth. Patient denies any rashes, stiff neck, chest pain, shortness of breath. Review of Systems Constitutional symptoms: Fever, chills, decreased activity, no sweats, no fatigue. Skin symptoms: No rash, no breakdown, no lesion. Eye symptoms: No recent vision problems, no blurred vision. ENMT symptoms: Sore throat, nasal congestion, sinus pain, pressure in both ears, worse on L. Respiratory symptoms: Cough, No shortness of breath, Cardiovascular symptoms: No chest pain, no palpitations. Gastrointestinal symptoms: No abdominal pain, no nausea, no vomiting, no diarrhea. Genitourinary symptoms: No dysuria, Musculoskeletal symptoms: No back pain, no Muscle pain. Neurologic symptoms: Headache, no dizziness, no altered level of consciousness, no numbness, no tingling, no weakness. Psychiatric symptoms: No anxiety, no depression. Allergy/immunologic symptoms: No recurrent infections, no impaired immunity. Health Status Allergies: Allergic Reactions (Selected) Severity Not Documented Amoxicillin- Hives.. Medications: (Selected) Prescriptions Prescribed Azithromycin 5 Day Dose Pack 250 mg oral tablet: 1 packet(s), PO, Once, as directed on package labeling, 6 tab(s), 0 Refill(s) Flonase 50 mcg/inh nasal spray: 1 spray(s), Nasal, BID, 16 gm, 1 Refill(s) Mucinex 600 mg oral tablet, extended release: 600 mg = 1 tab(s), PO, q12hr, for 10 day(s), PRN: congestion, 20 tab(s), 0 Refill(s) Documented Medications Documented MetFORMIN (Eqv-Glucophage XR) 500 mg oral tablet, extended release: 500 mg = 1 tab(s), PO, BID, 0 Refill(s) citalopram 10 mg oral tablet: 10 mg = 1 tab(s), PO, Daily, 0 Refill(s) ergocalciferol 1.25 mg (50,000 intl units) oral capsule: 50,000 International_Unit = 1 cap(s), PO, qWeek, 0 Refill(s) levothyroxine 125 mcg (0.125 mg) oral tablet: 125 mcg = 1 tab(s), PO, Daily, 0 Refill(s) lisinopril 5 mg oral tablet: 5 mg = 1 tab(s), PO, Daily, 0 Refill(s). Past Medical/ Family/ Social History Medical history: No active or resolved past medical history items have been selected or recorded.. Surgical history: No active procedure history items have been selected or recorded.. Family history: No family history items have been selected or recorded.. Physical Examination Vital Signs Vital Signs 06/13/2022 9:45 EST Temperature Temporal 37 DegC Peripheral Pulse Rate 108 bpm HI Respiratory Rate 20 br/min Systolic Blood Pressure 122 mmHg Diastolic Blood Pressure 64 mmHg SpO2 98 % Oxygen Therapy Room air BP Method Automatic . Measurements 06/13/2022 9:45 EST Height 157.48 cm Weight 68.95 kg Body Mass Index Measured 27.8 kg/m2 BSA Measured 1.74 m2 . General: Alert, no acute distress. Skin: Warm, dry. Head: Normocephalic, atraumatic. Neck: Supple, trachea midline. Eye: Pupils are equal, round and reactive to light, extraocular movements are intact, normal conjunctiva. Ears, nose, mouth and throat: Oral mucosa moist, Tympanic membrane: Left, moderate, erythema, External ear: Bilateral, canal, moderate, wax, Sinus: Frontal, tenderness, Nose: Moderate, discharge, swelling, Throat: Mild, erythema, gag reflex present, not with exudate, no swelling, no palatal petechiae, no uvula shift. Cardiovascular: Regular rate and rhythm, No murmur. Respiratory: Lungs are clear to auscultation, respirations are non-labored. Gastrointestinal: Soft, Nontender, Non distended. Back: Nontender. Neurological: Alert and oriented to person, place, time, and situation, No focal neurological deficit observed. Lymphatics: Exam: not anterior cervical, not posterior cervical. Psychiatric: Cooperative, appropriate mood & affect, normal judgment. Medical Decision Making Rationale: Patient is a 46- (more content not included)... Normal [facility] Urgent Care [place] 023 Urgent Care Record [facility] ? Urgent Care [address] [place], [place] [id number] PATIENT DISCHARGE INSTRUCTIONS Patient Information Name: SUSHMA LEWIS Age: 46 Years Date of : 1975 Reason For Visit: UC - Sore Throat; UC - Cough; UC - Cough; COUGH, CONGESTION, SORE THROAT, LT EAR PAIN Arrival Time: 06/13/2022 09:38:23 Primary Care Physician: GILA DUMONT, DEEPAK Dao Attending Physician: Aramis Andrade Comment: Visit Diagnosis: Diagnoses This Visit Acute left otitis media (H66.92) Acute pansinusitis (J01.40) Bilateral impacted cerumen (H61.23) UC - Cough ([id number]) UC - Cough ([id number]) UC - Sore Throat ([id number]) If you received any narcotics, sedation, or any other medication that causes drowsiness for the next 24 hours, unless otherwise directed: ? Do not drive a car. ? Do not operate machinery such as power tools, lawn mowers, drills, sewing machines, or stoves ? Avoid alcoholic beverages and drugs for allergies, nerves, or sleep ? Do not make important personal or business decisions or sign any legal documents With: Address: When: DEEPAK RICE [address] [place] [id number] Business (1) Within 2 to 4 days Comments: Diagnosis today of acute bacterial sinusitis, left acute otitis media, bilateral ear cerumen obstruction with irrigation- which will require antibiotic treatment. -Begin Azithromycin for the next 5 days with food, complete all. -To prevent GI upset and diarrhea strongly encourage use of probiotic such as lactobacillus. Begin a live culture yogurt such as Activia. -Patient has been instructed to begin Flonase nasal spray 1-2 sprays each nostril twice a day for the next 10 days. -Begin OTC Mucinex 600mg AM and PM x 10 days. -Take cyuz-jna-fkyapbx Ibuprofen every 8 hours or Tylenol every 4 hours for sinus pain or discomfort. Seek additional medical care if worse, chest pain, shortness of breath, headache, fever over 101.5, worsening symptoms in any way. Medication Information: The exam and treatment you received today in the [facility] were for an urgent problem and are not intended as complete care. It is important for you to follow up with a doctor, nurse practitioner, or physician?s assistant controller for ongoing care. If your symptoms become worse or you do not improve as expected and you are unable to reach your usual health care provider, you should return to the Emergency Department, we are available 24 hours a day. For those patients who have received Radiology results, the interpretation of your X-ray as given to you by our Urgent Care physician is only a preliminary report. The Radiologist will review your films and if there is a change in the diagnosis you will be notified by phone. Please make sure you have provided a working phone number so we can reach you if necessary. In the event that you had a lab culture while you were a patient in the Urgent Care, you will be notified by phone if there is a need to change your antibiotic. Please make sure you have provided a working phone number so we can reach you if necessary. [facility] has provided you with a complete list of medications post discharge. Please inform your psychiatric technician/provider of your visit and for further instruction on these medications. Any specific questions regarding your chronic medications and dosages should be discussed with your primary care physician(s) and/or pharmacist. New Medications [facility], [address], [place] [id number], [phone] azithromycin (Azithromycin 5 Day Dose Pack 250 mg oral tablet) 1 packet(s) Oral once. as directed on package labeling. Refills: 0. fluticasone nasal (Flonase 50 mcg/inh nasal spray) 1 spray(s) Nasal 2 times a day. Refills: 1. guaiFENesin (Mucinex 600 mg oral tablet, extended release) 1 tab(s) Oral Every 12 hours scheduled time as needed congestion for 10 Days. Refills: 0. Additional medications on your home medication list not specifically addressed. Please contact the ordering physician if you have questions about these medications. citalopram (citalopram 10 mg oral tablet) 1 tab(s) Oral every day. ergocalciferol (ergocalciferol 1.25 mg (50,000 intl units) oral capsule) 1 cap(s) Oral every week. levothyroxine (levothyroxine 125 mcg (0.125 mg) oral tablet) 1 tab(s) Oral every day. lisinopril (lisinopril 5 mg oral tablet) 1 tab(s) Oral every day. metFORMIN (MetFORMIN (Eqv-Glucophage XR) 500 mg oral tablet, extended release) 1 tab(s) Oral 2 times a day. Visit Information Allergies: Substance Reaction Symptoms Type Comments amoxicillin hives Drug Vital Signs: Vitals and Measurements this Visit (last charted value for your 06/13/2022 visit) Vital Signs This Visit Temperature Temporal: 37 DegC Peripheral Pulse Rate: 108 bpm Respirat (more content not included)... Normal [facility] THYROGLOBULIN AND ANTI THYRO GLOBULIN ABon 05-28-2022 ANTI-THYROGLOBULIN AB <0.9 Normal 0.0-4.0 [facility] Comment on above: Result Comment: INTE RPRETIVE INFORMATION: Thyroglobulin Antibody A value of 4.0 IU/mL or less indicates a negative result for thyroglobulin antibodies. The Thyroglobulin Antibody assay is being performed using the [employer] [place] Access DxI method. Performed By: #### T HYR2 #### [facility] [address] [facility] [place] [address] THYROGLOBULIN <0.1 Low 1.3-31.8 [facility] Comment on above: Result Comment: INTE RPRETIVE INFORMATION: Thyroglobulin, Serum or Plasma Specimens negative for thyroglobulin antibodies (TgAb) are tested for thyroglobulin (Tg) by chemiluminescent immunoassay (NA) using the [employer] [place] Access DxI method. Specimens with TgAb results above the upper reference limit are tested for Tg by high-performance liquid chromatography-tandem mass spectrometry (LC-MS/MS). Results obtained with different test methods or kits cannot be used interchangeably. Tg results, regardless of concentration, should not be interpreted as absolute evidence for the presence or absence of papillary or follicular thyroid cancer. Tg testing is not recommended for use as a screening procedure to detect the presence of thyroid cancer in the general population. Performed By: #### T HYR2 #### [facility] [address] [facility] [place] [address] THYROGLOBULIN LC-MS/MS Not Applicable Normal 1.3-31.8 [facility] Comment on above: Result Comment: INTE RPRETIVE INFORMATION: Thyroglobulin by LC-MS/MS, Serum/Plasma Lower limit of detection for Thyroglobulin by LC-MS/MS is 0.5 ng/mL. This test was developed and its performance characteristics determined by [facility]. It has not been cleared or approved by the [place] Food and Drug Administration. This test was performed in a CLIA certified laboratory and is intended for clinical purposes. Performed By: [facility] [address] [place] [address] Time Analysis Clerk: Kaz Oh MD, PhD Performed By: #### T HYR2 #### [facility] [address] [place] [address] COMPREHENSIVE PANELon 2022 Albumin [Mass/Vol] 3.9 g/dL Normal 3.4 - 5.0 [facility] Comment on above: Performed By: #### C MP #### [address] [id number] ALP [Catalytic activity/Vol] 57 U/L Normal 33 - 110 [facility] Comment on above: Performed By: #### C MP #### [address] [id number] ALT [Catalytic activity/Vol] 12 U/L Normal 7 - 45 [facility] Comment on above: Result Comment: Martha ents treated with Sulfasalazine may generate falsely decreased results for ALT. Performed By: #### C MP #### [address] [id number] Anion gap [Moles/Vol] 11 mmol/L Normal 10 - 20 [facility] Comment on above: Performed By: #### C MP #### [address] [id number] AST [Catalytic activity/Vol] 15 U/L Normal 9 - 39 [facility] Comment on above: Performed By: #### C MP #### [address] [id number] Bilirubin [Mass/Vol] 0.3 mg/dL Normal 0.0 - 1.2 [facility] Comment on above: Performed By: #### C MP #### [address] [id number] Calcium [Mass/Vol] 8.7 mg/dL Normal 8.6 - 10.3 [facility] Comment on above: Performed By: #### C MP #### [address] [id number] Chloride [Moles/Vol] 105 mmol/L Normal 98 - 107 [facility] Comment on above: Performed By: #### C MP #### [address] [id number] Creatinine [Mass/Vol] 0.79 mg/dL Normal 0.50 - 1.05 [facility] Comment on above: Performed By: #### C MP #### [address] [id number] eGFR FEMALE >90 Normal >90 [facility] Comment on above: Result Comment: CALC ULATIONS OF ESTIMATED GFR ARE PERFORMED USING THE 2020 CKD-EPI STUDY REFIT EQUATION WITHOUT THE RACE VARIABLE FOR THE IDMS-TRACEABLE CREATININE METHODS. https://jasn.asnjournals.org/content/early/ASN.4365191 988 Performed By: #### C MP #### [address] [id number] Glucose [Mass/Vol] 85 mg/dL Normal 74 - 99 [facility] Comment on above: Performed By: #### C MP #### [address] [id number] HCO3 (Bld) [Moles/Vol] 26 mmol/L Normal 21 - 32 [facility] Comment on above: Performed By: #### C MP #### [address] [id number] Potassium [Moles/Vol] 3.7 mmol/L Normal 3.5 - 5.3 [facility] Comment on above: Performed By: #### C MP #### [address] [id number] Protein [Mass/Vol] 7.3 g/dL Normal 6.4 - 8.2 [facility] Comment on above: Performed By: #### C MP #### [address] [id number] Sodium [Moles/Vol] 138 mmol/L Normal 136 - 145 [facility] Comment on above: Performed By: #### C MP #### [address] [id number] Urea nitrogen [Mass/Vol] 12 mg/dL Normal 6 - 23 [facility] Comment on above: Performed By: #### C MP #### [address] [id number] Initial Visit (Endocrinology )on 05-24-2022 Initial Visit (Endocrinology) Diagnoses/Problems Assessed Hypothyroidism (244.9) (E03.9) 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) Pre-diabetes (790.29) (R73.03) Orders Hypothyroidism Comprehensive Metabolic Panel; Status:Active; Requested for:24May2022; Perform:Lab Services - Lab To Draw (Blood Test); Due:22Aug2022;Ordere d; For:Hypothyroidism; Ordered By:Jamie Finn; T4 - Free Thyroxine, Serum; Status:Active; Requested for:24May2022; Perform:Lab Services - Lab To Draw (Blood Test); Due:22Aug2022;Ordere d; For:Hypothyroidism; Ordered By:Jamie Finn; THYROGLOBULIN AND ANTI-THYRGLOBULIN AB; Status:Active; Requested for:24May2022; Perform:Lab Services - Lab To Draw (Blood Test); Due:22Aug2022;Ordere d; For:Hypothyroidism; Ordered By:Jamie Finn; TSH - Thyroid Stimulating Hormone, Serum; Status:Active; Requested for:24May2022; Perform:Lab Services - Lab To Draw (Blood Test); Due:22Aug2022;Ordere d; For:Hypothyroidism; Ordered By:Jamie Finn; Ultrasound Neck; Status:Hold For - Scheduling; Requested for:24May2022; Perform: Radiology Services Imaging; Due:22Aug2022;Ordere d; For:Hypothyroidism; Ordered By:Jamie Finn; Radiologist to Determine Optimal Study : Y What are the patient's signs and symptoms? : h/o thyroid cancer , micro carcinoma Vitamin D 25-Hydroxy; Status:Active; Requested for:24May2022; Perform:Lab Services - Lab To Draw (Blood Test); Due:22Aug2022;Ordere d; For:Hypothyroidism; Ordered By:Jamie Finn; SocHx: Former smoker Tobacco Use Screening; Status:Complete; Done: 24May2022 Perform:Not Applicable;Ordered; For:SocHx: Former smoker; Ordered By:Aramis Caputo; Provider Impressions 46 yo woman came for eval and treatment of thyroid cancer All records at [facility] most history from pt and some labs on her phone 1 She mentions in Summer 2017 she was found to have thyroid nodules and goiter. she did follow with ENT with initial plan to do biopsy but given her US features as underwent TTx in 2017 ( no path record) she mentions she was told she has a micro carcinoma she nevere had any I 131 Rx she denies any repeat imaging after the surgery , denies any post op complications she did follow ENt and endo in past ADDENDUM : she bought he [facility] report from past: 04/02/2013- PTC 2.2 mm ( microPTC) unifical, follicular variant 1 margins neg, one LN which was benign , no lymphovascular invasion 1 1 currently takind , 125 mcg levothyroxine which she takes appropriately on exam level [address] palpted 1 Outside labs : 03/13/22 - tsh 0.990 free t4- 1.46 free t3 was 2.25 in 2018- TG was 12, TPO ab 320s tg 12 in 2018 PLAN : - advised to get records which should include pathology and previous US thyroids - will check TFT TG ATg today , for now goal TSH < 1 - ordered US neck as well # preDM- mentions A1c was 5.8 %, on metformin , managed with PCP RTc 6m FH- no thyroid cancer SH- lives one hr away kids- 1 - boy - Nova 2 yo BC - on it for 2 yrs 1 Amended By: Jamie Finn; Jun 09 2022 12:58 PM ESTChief Complaint Patient followed for hypothyroid. Patient here with Mother, Belinda PCP: Dr. Rice total thyroid removed 2018 [facility]; but no treatment Endo: Dr. 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 no tremors no palpitations fatigue + hair fall + 12 point ROS negative except as mentioned. PE : General: Well-developed, well-nourished, appearing stated age. Alert, oriented to time, place, person, and situation. Skin warm, dry, with good turgor Head: Normocephalic without scalp lesions. Ears and nose without deformity Eyes: Conjunctivae pink, sclerae white, without jaundice. Neck: Neck supple with full range of motion (ROM). non palpable thyroid. cervical LN on R level 5 palpated Chest AND back: No abnormal curvature of spine. Lungs: Respiratory excursions full and symmetrical. Cardiovascular: Regular rate and rhythm. 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) Hypothyroidism (244.9) (E03.9) Family History Mother Family history of thyroid disease (V18.19) (Z83.49) Maternal Grandmother Family history of thyroid disease (V18.19) (Z83.49) Paternal Grandmother Family history of thyroid disease (V18.19) (Z83.49) Social History Problems Former smoker (V15.82) (Z87.891) No illicit drug use Occasional alcohol use Allergies Medication Amoxicillin TABS Recorded By: Aramis Caputo; 05/24/2022 1:40:53 PM Vitals Vital Signs Recorded: 24May2022 01:37PM Izqtudul638 Ksfqefquu65 Height5 ft 2 in Cbxter315 lb BMI Tozemathax43.17 kg/m2 BSA Calculated1.71 Signatures Electro (more content not included)... Normal [facility] - Chemistry and C hemistry - challengeon 05-24-2022 Albumin BCP dye [Mass/Vol] 3.9 g/dL 3.4 - 5.0 [facility] 201 Work Phone: ALP [Catalytic activity/Vol] 57 U/L 33 - 110 TG-ZKYI-Klyazp ke 201 Work Phone: ALT With P-5'-P [Catalytic activity/Vol] 12 U/L 7 - 45 HL-CZZK-Wfotbk ke 201 Work Phone: Comment on above: Patients treated wit h Sulfasalazine may generate falsely decreased results for ALT. Anion gap [Moles/Vol] 11 mmol/L 10 - 20 XG-SLRU-Mmbgyf ke 201 Work Phone: AST With P-5'-P [Catalytic activity/Vol] 15 U/L 9 - 39 ZF-ULTT-Ivbxko ke 201 Work Phone: Bilirubin [Mass/Vol] 0.3 mg/dL 0.0 - 1.2 -[facility] 201 Work Phone: Calcium [Mass/Vol] 8.7 mg/dL 8.6 - 10.3 -[facility] 201 Work Phone: Chloride [Moles/Vol] 105 mmol/L 98 - 107 -[facility] 201 Work Phone: CO2 [Moles/Vol] 26 mmol/L 21 - 32 -[facility] 201 Work Phone: Creatinine [Mass/Vol] 0.79 mg/dL See Below RJ-CXSE-Leahvn ke 201 Work Phone: Comment on above: Reference Range: 0.5 0 - 1.05 Glucose [Mass/Vol] 85 mg/dL 74 - 99 MP-[facility] C-[facility] 201 Work Phone: Potassium [Moles/Vol] 3.7 mmol/L 3.5 - 5.3 KB-XOXX-Tfmkug ke 201 Work Phone: Protein [Mass/Vol] 7.3 g/dL 6.4 - 8.2 -[facility] 201 Work Phone: Sodium [Moles/Vol] 138 mmol/L 136 - 145 MP-P -[facility] 201 Work Phone: Thyroglobulin [Mass/Vol] Not Applicable 1.3-31.8 FA-SJRH-Svxbyq ke 201 Work Phone: Comment on above: INTERPRETIVE INFORMA TION: Thyroglobulin by LC-MS/MS, Serum/PlasmaLower limit of detection for Thyroglobulin by LC-MS/MS is 0.5 ng/mL.This test was developed and its performance characteristics determined by [facility]. It has not been cleared or approved by the [place] Food and Drug Administration. This test was performed in a CLIA certified laboratory and is intended for clinical purposes.Performed By: [facility] [place] [address] [id number] Director: Kaz Oh MD, PhD Thyroglobulin [Mass/Vol] <0.1 below low threshold 1.3-31.8 [place] [address] Work Phone: Comment on above: INTERPRETIVE INFORMA TION: Thyroglobulin, Serum or PlasmaSpecimens negative for thyroglobulin antibodies (TgAb) are tested for thyroglobulin (Tg) by chemiluminescent immunoassay (NA) using the [employer] [place] Access DxI method. Specimens with TgAb results above the upper reference limit are tested for Tg by high-performance liquid chromatography-tandem mass spectrometry (LC-MS/MS). Results obtained with different test methods or kits cannot be used interchangeably. Tg results, regardless of concentration, should not be interpreted as absolute evidence for the presence or absence of papillary or follicular thyroid cancer. Tg testing is not recommended for use as a screening procedure to detect the presence of thyroid cancer in the general population. Urea nitrogen [Mass/Vol] 12 mg/dL 6 - 23 II-ORAU-Ypexor ke 201 Work Phone: Laboratory - Serology - non- microon 05-24-2022 Thyroglobulin Ab Qn [IU]/mL 0.0-4.0 [place] [address] Work Phone: Comment on above: INTERPRETIVE INFORMA TION: Thyroglobulin Antibody A value of 4.0 IU/mL or less indicates a negative result for thyroglobulin antibodies.The Thyroglobulin Antibody assay is being performed using the [employer] Access DxI method. No Panel Informationon 05-24 >90 >90 RW-CZHA-Tudbet ke 201 Work Phone: Comment on above: CALCULATIONS OF JESSICA MATED GFR ARE PERFORMED USING THE 2020 CKD-EPI STUDY REFIT EQUATION WITHOUT THE RACE VARIABLE FOR THE IDMS-TRACEABLE CREATININE METHODS.https://jasn.asnjournals.org/content/early/ASN .3729655488 T4 - Free Thyroxine, Serumon 05-24-2022 Free T4 [Mass/Vol] 1.32 ng/dL above high threshold See Below VK-DWHJ-Hmooei [employer] 201 Work Phone: Comment on above: Reference Range: 0.6 1 - 1.12 Thyroxine Free testing is performed using different testing methodology at [facility] than at other [facility]. Direct result comparisons should only be made within the same method.. Biotin can cause falsely elevated free T4 results. Patients taking a Biotin dose of up to 10 mg/day should refrain from taking Biotin for 24 hours before sample collection. Patient taking a Biotin dose of >10 mg/day should consult with their physician or the laboratory before the blood draw. THYROXINE,FREEon 05-24-2022 THYROXINE,FREE 1.32 ng/dL High 0.61 - 1.12 [facility] Comment on above: Result Comment: Thyr oxine Free testing is performed using different testing methodology at [facility] than at other [facility]. Direct result comparisons should only be made within the same method. . Biotin can cause falsely elevated free T4 results. Patients taking a Biotin dose of up to 10 mg/day should refrain from taking Biotin for 24 hours before sample collection. Patient taking a Biotin dose of >10 mg/day should consult with their physician or the laboratory before the blood draw. Performed By: #### T 4FRE #### [address] [id number] TSHon 05-24-2022 TSH Qn 0.73 m[IU]/L Normal 0.44 - 3.98 [facility] Comment on above: Result Comment: TSH testing is performed using different testing methodology at [facility] than at [facility]. Direct result comparisons should only be made within the same method. Performed By: #### T SH2 #### [address] [id number] TSH - Thyroid Stimulating Ho rmone, Serumon 05-24-2022 TSH Qn 0.73 m[IU]/L See Below [facility] 201 Work Phone: Comment on above: Reference Range: 0.4 4 - 3.98 TSH testing is performed using different testing methodology at [facility] than at other [facility]. Direct result comparisons should only be made within the same method. VITAMIN D, 25-HYDROXYon VITAMIN D, 25-HYDROXY 17 ng/mL Abnormal [facility] Comment on above: Result Comment: . DEFICIENCY: < 20 NG/ML INSUFFICIENCY: 20-29 NG/ML SUFFICIENCY: 30-100 NG/ML THIS ASSAY ACCURATELY QUANTIFIES THE SUM OF VITAMIN D3, 25-HYDROXY AND VIT D2,25-HYDROXY. Performed By: #### V TDOH #### [address] [id number] Vitamin D 25-Hydroxyon 05-24 25-hydroxyvitamin D3 [Mass/Vol] 17 ng/mL Abnormal [facility] 201 Work Phone: Comment on above: .DEFICIENCY: < 20 NG /MLINSUFFICIENCY: 20-29 NG/MLSUFFICIENCY: 30-100 NG/MLTHIS ASSAY ACCURATELY QUANTIFIES THE SUM OFVITAMIN D3, 25-HYDROXY AND VIT D2,25-HYDROXY. PAP ACOG PANEL 2: 30 to 65on 03-22-2022 . . Normal [facility] Comment on above: Result Comment: Perf ormed at: WB Performed By: #### [id number] #### [facility] [address] [place] [address] Dr. Nina Vickers Age Gdln ACOG Testing 30-65 Normal [facility] Comment on above: Performed By: #### [id number] #### [facility] [address] [place] [address] Dr. Nina Vickers DIAGNOSIS: Comment Normal [facility] Comment on above: Result Comment: NEGA TIVE FOR INTRAEPITHELIAL LESION OR MALIGNANCY. Performed at: WB Performed By: #### [id number] #### [facility] [address] [place] [address] Dr. Nina Vickers HPV Aptima Negative Normal Negative [facility] Comment on above: Result Comment: This nucleic acid amplification test detects fourteen high-risk HPV types (16,18,31,33,35,39,45,51,52,56,58,59,66,68) without differentiation. Performed at: =G Performed By: #### [id number] #### [facility] [address] [place] [address] Dr. Nina Vickers HPV Genotype Reflex Comment Normal [facility] Comment on above: Result Comment: Crit eria not met, HPV Genotype not performed. Performed at: WB Performed By: #### [id number] #### [facility] [address] [place] [address] Dr. Nina Vickers Methodology: Comment Normal [facility] Comment on above: Result Comment: This liquid based ThinPrep(R) pap test was screened with the use of an image guided system. Performed at: WB Performed By: #### 4 [id number] #### [facility] [address] [place] [address] Dr. Nina Vickers Note: Comment Normal [facility] Comment on above: Result Comment: The Pap smear is a screening test designed to aid in the detection of premalignant and malignant conditions of the uterine cervix. It is not a diagnostic procedure and should not be used as the sole means of detecting cervical cancer. Both false-positive and false-negative reports do occur. . Performed at: WB Performed By: #### [id number] #### [facility] [address] [place] [address] Dr. Nina Vickers Performed by: Comment Normal [facility] Comment on above: Result Comment: Amarilys Treadwell, Lumber Handler (ASCP) Performed at: WB Performed By: #### [id number] #### [facility] [address] [place] [address] Dr. Nina Vickers Specimen adequacy: Comment Normal [facility] Comment on above: Result Comment: Sati sfactory for evaluation. No endocervical component is identified. Performed at: WB Performed By: #### [id number] #### [facility] [address] [place] [address] Dr. Nina Vickers CBC AUTO DIFFon 03-13-2022 BASO # 0.0 103/ul Normal 0.0-0.1 [facility] Comment on above: Performed By: #### C BC #### [facility] [address] [place] [address] Dr. Nina Vickers Basophils/100 WBC (Bld) 0.3 % Normal 0.2-2.0 [facility] Comment on above: Performed By: #### C BC #### [facility] [address] [place] [address] Dr. Nina Vickers EO # 0.1 103/ul Normal 0.0-0.7 [facility] Comment on above: Performed By: #### C BC #### [facility] [address] [place] [address] Dr. Nina Vickers Eosinophils/100 WBC (Bld) 0.8 % Critically low 0.9-7.0 [facility] Comment on above: Performed By: #### C BC #### [facility] [address] [place] [address] Dr. Nina Vickers Erythrocyte distribution width (RBC) [Ratio] 12.8 % Normal 11.0-15.0 [facility] Comment on above: Performed By: #### C BC #### [facility] [address] [place] [address] Dr. Nina Vickers Hematocrit (Bld) [Volume fraction] 38.3 % Normal 36.0-48.0 [facility] Comment on above: Performed By: #### C BC #### [facility] [address] [place] [address] Dr. Nina Vickers Hemoglobin (Bld) [Mass/Vol] 13.1 g/dL Normal 12.0-16.0 [facility] Comment on above: Performed By: #### C BC #### [facility] [address] [place] [address] Dr. Nina Vickers IG # 0.01 10e3/ul Normal 0.00-0.03 [facility] Comment on above: Performed By: #### C BC #### [facility] [address] [place] [address] Dr. Nina Vickers IG % 0.2 % Normal 0.0-0.5 [facility] Comment on above: Performed By: #### C BC #### [facility] [address] [place] [address] Dr. Nina Vickers LYMPH # 2.0 103/ul Normal 1.2-3.8 [facility] Comment on above: Performed By: #### C BC #### [facility] [address] [place] [address] Dr. Nina Vickers Lymphocytes/100 WBC (Bld) 33.3 % Normal 20.5-60.0 [facility] Comment on above: Performed By: #### C BC #### [facility] [address] [place] [address] Dr. Nina Vickers MANUAL DIFF REQ NO Normal [facility] Comment on above: Performed By: #### C BC #### [facility] [address] [place] [address] Dr. Nina Vickers MCH (RBC) [Entitic mass] 29.5 pg Normal 26.7-34.0 [facility] Comment on above: Performed By: #### C BC #### [facility] [address] [place] [address] Dr. Nina Vickers MCHC (RBC) [Mass/Vol] 34.2 g/dL Normal 29.9-35.2 [facility] Comment on above: Performed By: #### C BC #### [facility] [address] [place] [address] Dr. Nina Vickers MCV (RBC) [Entitic vol] 86.3 fL Normal 81.0-99.0 [facility] Comment on above: Performed By: #### C BC #### [facility] [address] [place], [place] [id number] Dr. Nina Vickers MONO # 0.5 103/ul Normal 0.3-0.8 [facility] Comment on above: Performed By: #### C BC #### [facility] [address] [place] [address] Dr. Nina Vickers Monocytes/100 WBC (Bld) 7.5 % Normal 1.7-12.0 [facility] Comment on above: Performed By: #### C BC #### [facility] [address] [place] [address] Dr. Nina Vickers NEUT # 3.5 103/ul Normal 1.4-6.5 [facility] Comment on above: Performed By: #### C BC #### [facility] [address] [place] [address] Dr. Nina Vickers Neutrophils/100 WBC (Bld) 57.9 % Normal 43.0-75.0 [facility] Comment on above: Performed By: #### C BC #### [facility] [address] [place] [address] Dr. Nina Vickers Platelet mean volume (Bld) [Entitic vol] 9.2 fL Critically low 9.5-13.5 [facility] Comment on above: Performed By: #### C BC #### [facility] [address] [place] [address] Dr. Nina Vickers PLT 335 103/ul Normal 150-450 [facility] Comment on above: Performed By: #### C BC #### [facility] [address] [place] [address] Dr. Nina Vickers RBC 4.44 106/ul Normal 4.20-5.40 [facility] Comment on above: Performed By: #### C BC #### [facility] [address] [place] [address] Dr. Nina Vickers WBC 6.1 103/ul Normal 4.0-11.0 [facility] Comment on above: Performed By: #### C BC #### [facility] [address] [place] [address] Dr. Nina Vickers FREE T3on 03-13-2022 FREE T3 2.25 pg/mlL Normal 2.18-3.98 [facility] Comment on above: Performed By: #### T SH, FT3 #### [facility] [address] [place] [address] Dr. Nina Vickers FREE T4on 03-13-2022 Free T4 [Mass/Vol] 1.46 ng/dL Normal 0.76-1.46 [facility] Comment on above: Performed By: #### F T4 #### [facility] [address] [place] [address] Dr. Nina Vickers GLYCOHEMOGLOBIN A1Con 2021 ADA RECOMMENDATION SEE BELOW Normal [facility] Comment on above: Result Comment: ADA RECOMMENDED LIMIT 4.0 - 6.0 ADA THERAPEUTIC TARGET < 7.0 ACTION SUGGESTED > 7.0 Performed By: #### A 1C #### [facility] [address] [place] [address] Dr. Nina Vickers Glucose [Mass/Vol] 120 mg/dL Normal [facility] Comment on above: Performed By: #### A 1C #### [facility] [address] [place] [address] Dr. Nina Vickers HbA1c (Bld) [Mass fraction] 5.8 % Normal 4.5-6.2 [facility] Comment on above: Performed By: #### A 1C #### [facility] [address] [place] [address] Dr. Nina Vickers TSHon 03-13-2022 TSH 0.990 uIU/mL Normal 0.358-3.[address] [facility] Comment on above: Performed By: #### T VINAYAK, FT3 #### [facility] [address] [place] [address] Dr. Nina Vickers Vital Signs Date Time Vital Sign Value Performing Clinician Faci lity 11-23-2022 12:55-0400 Body height 157.48 cm No PCP None QQ-GCZF-Pjduescb 200 Work Phone: 11-23-2022 12:55-0400 Body mass index (BMI) [Ratio] 25.79 kg/m2 No PCP None TZ-MXZJ-Yobdlabk 200 Work Phone: 11-23-2022 12:55-0400 Body surface area Derived from formula 1.65 m2 No PCP None BF-YPGW-Puqqqvxj 200 Work Phone: 11-23-2022 12:55-0400 Body weight 63.96 kg No PCP None TI-UFJK-Edhydxmg 200 Work Phone: 11-23-2022 12:55-0400 Diastolic blood pressure 64 mm[Hg] No PCP None EG-RPWM-Iefdtpnb 200 Work Phone: 11-23-2022 12:55-0400 Systolic blood pressure 112 mm[Hg] No PCP None TP-UUXL-Ajacvngl 200 Work Phone: 05-24-2022 13:37-0500 Body height 157.48 cm No PCP None TH-MYCQ-Ylzopcfm 200 Work Phone: 05-24-2022 13:37-0500 Body mass index (BMI) [Ratio] 28.17 kg/m2 No PCP None LO-YRXB-Emluxzyz 200 Work Phone: 05-24-2022 13:37-0500 Body surface area Derived from formula 1.71 m2 No PCP None QN-CXLI-Rwdstnlt 200 Work Phone: 05-24-2022 13:37-0500 Body weight 69.85 kg No PCP None CH-MENG-Iboqurfv 200 Work Phone: 05-24-2022 13:37-0500 Diastolic blood pressure 74 mm[Hg] No PCP None IQ-JHXC-Udlbxgtk 200 Work Phone: 05-24-2022 13:37-0500 Systolic blood pressure 118 mm[Hg] No PCP None OB-EBJT-Qcqjeovz 200 Work Phone: Encounters Encounter Date Encounter Type Care Provider Facility Start: 03-22-2023 End: 03-22-2023 ambulatory EDITH JOHN Not Available Start: 11-30-2022 Chart Update No PCP None MP-WSPC-We stlake 200 Work Phone: Start: 11-28-2022 End: 11-29-2022 ambulatory DEEPAK A FRANKLIN Facility:[facility] Start: 11-23-2022 Office outpatient vi sit 25 minutes No PCP None KB-BQAA-Dpscgaup 200 Work Phone: Start: 11-23-[address] Jamie Vilchis lity:[id number] Start: 06-13-2022 End: 06-13-2022 ambulatory [facility] Facility:[facility] Start: 05-29-2022 Chart Update No PCP None MP-WSPC-We stlake 201 Work Phone: Start: 05-24-2022 AUDIT No PCP None MP-WSPC-We stlake 201 Work Phone: Start: 05-24-2022 Office outpatient vi sit 25 minutes No PCP None CO-XICL-Oewgggya 200 Work Phone: Start: 05-24-[address] Deepak jack Rice Facility:[id number] Start: 03-13-2022 End: 03-13-[address] EDITH JOHN Facility:[facility] Start: 03-13-2022 End: 03-14-[address] EDITH JOHN Facility:[facility] Plan of Treatment Date Care Activity Detail Author Start: 11-29-2023 FUV, Provider: Jamie Finn, Status: Pen, Time: 11:00 AM FUV, Provider: Jamie Finn, Status: Pen, Time: 11:00 AM XZ-HQIP-Oucquzhw 200 Work Phone: Start: 05-30-2023 FUV, Provider: Jamie Finn, Status: Pen, Time: 11:00 AM FUV, Provider: Jamie Finn, Status: Pen, Time: 11:00 AM LO-GDDE-Nkyoqaju 200 Work Phone: Start: 11-23-2022 FUV, Provider: Jamie Finn, Status: Pen, Time: 1:00 PM FUV, Provider: Jamie Finn, Status: Pen, Time: 1:00 PM ZI-NQCD-Oqajeazr 201 Work Phone: Start: 11-23-2022 FUV, Provider: Nunu Hurley, Status: Pen, Time: 1:00 PM FUV, Provider: Nunu Hurley, Status: Pen, Time: 1:00 PM XQ-UGJI-Xsmpkjgn 200 Work Phone: Immunizations Immunization Date Immunization Notes Care Provider Fa [facility] 01-08-2022 Seasonal, quadrivale nt, recombinant, injectable influenza vaccine, preservative free No PCP None SK-WHJZ-Ftbazhqu 200 Work Phone: 03-27-2021 Moderna COVID-19 Vac cine 100 MCG/0.5ML Intramuscular Suspension No PCP None VN-KVBD-Aensnaf e 200 Work Phone: 01-09-2021 Seasonal, quadrivale nt, recombinant, injectable influenza vaccine, preservative free No PCP None SH-BBVB-Znjrpupg 200 Work Phone: 07-31-2020 Moderna COVID-19 Vac cine 100 MCG/0.5ML Intramuscular Suspension No PCP None CM-GWKZ-Skyrzpb e 200 Work Phone: 06-30-2020 Moderna COVID-19 Vac cine 100 MCG/0.5ML Intramuscular Suspension No PCP None ZP-AIQT-Enupvtc e 200 Work Phone: 04-01-2020 tetanus toxoid, redu vijaya diphtheria toxoid, and acellular pertussis vaccine, adsorbed No PCP None VG-PCIF-Ktzjanhq 200 Work Phone: 12-23-2019 Seasonal, quadrivale nt, recombinant, injectable influenza vaccine, preservative free No PCP None TO-QDNN-Xgcudpbs 200 Work Phone: 03-01-2019 hepatitis A and hepa titis B vaccine No PCP None MA-BGEO-Uqnnftcp 200 Work Phone: 12-08-2018 Seasonal, quadrivale nt, recombinant, injectable influenza vaccine, preservative free No PCP None BC-DVPU-Lhceitao 200 Work Phone: 11-10-2018 hepatitis A and hepa titis B vaccine No PCP None EW-EKFH-Vbmbyrsj 200 Work Phone: 08-03-2018 hepatitis A and hepa titis B vaccine No PCP None OJ-THHK-Gukmjejy 200 Work Phone: 01-10-2018 influenza, injectabl e, quadrivalent, preservative free No PCP None AF-AWAL-Rszcusnu 200 Work Phone: 11-28-2016 influenza, seasonal, injectable, preservative free No PCP None MX-FUKT-Hkhavfud 200 Work Phone: 12-10-2015 influenza, injectabl e, quadrivalent, preservative free No PCP None YY-WOJD-Jwcvrvxa 200 Work Phone: 08-26-2015 measles, mumps and r ubella virus vaccine No PCP None RH-NQUC-Elbmgale 200 Work Phone: 01-07-2015 influenza, seasonal, injectable No PCP None GJ-YXBH-Fjdifioe 200 Work Phone: Payers Date Payer Category Payer Unknown [id number] 2.16.84 [id number] 1974 Unknown [id number] 2.16.84 [id number] 1974 Unknown [id number] 2.16. [id number] 1974 Unknown [id number] 2.16. [id number] 1974 Unknown [id number] 2.16.8 [id number] 1974 Unknown [id number] 2.16.8 [id number] 1974 Unknown [id number] 1959 Private Health Insurance [id number] Unknown [employer] Social History Date Type Detail Facility Former smoker Former smoker JS-UXGZ-Xxlxu ake 200 Work Phone: Clinical Note 06-13-2022 Note Date & Type Note Facility 06-13-2022 Note Patient Education Ma terials Follows: Otitis Media, Adult Otitis media occurs when there is inflammation and fluid in the middle ear with signs and symptoms of an acute infection. The middle ear is a part of the ear that contains bones for hearing as well as air that helps send sounds to the brain. When infected fluid builds up in this space, it causes pressure and can lead to an ear infection. The eustachian tube connects the middle ear to the back of the nose (nasopharynx) and normally allows air into the middle ear. If the eustachian tube becomes blocked, fluid can build up and become infected. What are the causes? This condition is caused by a blockage in the eustachian tube. This can be caused by mucus or by swelling of the tube. Problems that can cause a blockage include: ? A cold or other upper respiratory infection. ? Allergies. ? An irritant, such as tobacco smoke. ? Enlarged adenoids. The adenoids are areas of soft tissue located high in the back of the throat, behind the nose and the roof of the mouth. They are part of the body's defense system (immune system). ? A mass in the nasopharynx. ? Damage to the ear caused by pressure changes (barotrauma). What increases the risk? You are more likely to develop this condition if you: ? Smoke or are exposed to tobacco smoke. ? Have an opening in the roof of your mouth (cleft palate). ? Have gastroesophageal reflux. ? Have an immune system disorder. What are the signs or symptoms? Symptoms of this condition include: ? Ear pain. ? Fever. ? Decreased hearing. ? Tiredness (lethargy). ? Fluid leaking from the ear, if the eardrum is ruptured or has burst. ? Ringing in the ear. How is this diagnosed? This condition is diagnosed with a physical exam. During the exam, your health care provider will use an instrument called an otoscope to look in your ear and check for redness, swelling, and fluid. He or she will also ask about your symptoms. Your health care provider may also order tests, such as: ? A pneumatic otoscopy. This is a test to check the movement of the eardrum. It is done by squeezing a small amount of air into the ear. ? A tympanogram. This is a test that shows how well the eardrum moves in response to air pressure in the ear canal. It provides a graph for your health care provider to review. How is this treated? This condition can go away on its own within 3?5 days. But if the condition is caused by a bacterial infection and does not go away on its own, or if it keeps coming back, your health care provider may: ? Prescribe antibiotic medicine to treat the infection. ? Prescribe or recommend medicines to control pain. Follow these instructions at home: ? Take fejn-rai-gzacjte and prescription medicines only as told by your health care provider. ? If you were prescribed an antibiotic medicine, take it as told by your health care provider. Do not stop taking the antibiotic even if you start to feel better. ? Keep all follow-up visits. This is important. Contact a health care provider if: ? You have bleeding from your nose. ? There is a lump on your neck. ? You are not feeling better in 5 days. ? You feel worse instead of better. Get help right away if: ? You have severe pain that is not controlled with medicine. ? You have swelling, redness, or pain around your ear. ? You have stiffness in your neck. ? A part of your face is not moving (paralyzed). ? The bone behind your ear (mastoid bone) is tender when you touch it. ? You develop a severe headache. Summary ? Otitis media is redness, soreness, and swelling of the middle ear, usually resulting in pain and decreased hearing. ? This condition can go away on its own within 3?5 days. ? If the problem does not go away in 3?5 days, your health care provider may give you medicines to treat the infection. ? If you were prescribed an antibiotic medicine, take it as told by your health care provider. ? Follow all instructions that were given to you by your health care provider. This information is not intended to replace advice given to you by your health care provider. Make sure you discuss any questions you have with your health care provider. Document Revised: 07/18/2021 Document Reviewed: 07/18/2021 Elsevier Patient Education ? 2021 [employer] Infectious Disease Sinusitis, Adult Sinusitis is inflammation of your sinuses. Sinuses are hollow spaces in the bones around your face. Your sinuses are located: ? Around your eyes. ? In the middle of your forehead. ? Behind your nose. ? In your cheekbones. Mucus normally drains out of your sinuses. When your nasal tissues become inflamed or swollen, mucus can become trapped or blocked. This allows bacteria, viruses, and fungi to grow, which leads to infection. Most infections of the sinuses are caused by a virus. Sinusitis c (more content not included)... [facility] History of Present illness Narrative Note Date & Type Note Facility History of Present illness Narrative please see HPI details in PIROS- feels well overall.no tremorsno palpitationsfatigue +hair fall +12 point ROS negative except as mentioned.PE :General:Well-developed, well-nourished, appearing stated age.Alert, oriented to time, place, person, and situation. Skin warm, dry, with good turgorHead:Normocephalic without scalp lesions.Ears and nose without deformityEyes: Conjunctivae pink, sclerae white, without jaundice.Neck:Neck supple with full range of motion (ROM).non palpable thyroid.cervical LN on R level 5 palpatedChest & back:No abnormal curvature of spine.Lungs:Respiratory excursions full and symmetrical.Cardiovascular:Regular rate and rhythm. (RRR)Abdomen:abdomen soft on palpationExtremities:No asymmetry or muscle atrophyno tremorsDTR [id number] 200 Work Phone: History of Present illness Narrative Note Date & Type Note Facility History of Present illness Narrative please see HPI details in PIROS- feels well overall.no tremorsno palpitationsfatigue +hair fall +12 point ROS negative except as mentioned.PE :General:Well-developed, well-nourished, appearing stated age.Alert, oriented to time, place, person, and situation. Skin warm, dry, with good turgorHead:Normocephalic without scalp lesions.Ears and nose without deformityEyes: Conjunctivae pink, sclerae white, without jaundice.Neck:Neck supple with full range of motion (ROM).non palpable thyroid.cervical LN on R level 5 palpatedChest & back:No abnormal curvature of spine.Lungs:Respiratory excursions full and symmetrical.Cardiovascular:Regular rate and rhythm. (RRR)Abdomen:abdomen soft on palpationExtremities:No asymmetry or muscle atrophyno tremorsDTR [employer] 201 Work Phone: History of Present illness Narrative Note Date & Type Note Facility History of Present illness Narrative please see HPI details in PIROS- feels well overall.no tremorsno [id number] point ROS negative except as mentioned.PE :General:Well-developed, well-nourished, appearing stated age.Alert, oriented to time, place, person, and situation. Skin warm, dry, with good turgorHead:Normocephalic without scalp lesions.Ears and nose without deformityEyes: Conjunctivae pink, sclerae white, without jaundice.Neck:Neck supple with full range of motion (ROM).non palpable thyroid.cervical LN on R level 5 palpatedChest & back:No abnormal curvature of spine.Lungs:Respiratory excursions full and symmetrical.Cardiovascular:Regu lar rate and rhythm. (RRR)Abdomen:abdomen soft on palpationExtremities:No asymmetry or muscle atrophyno tremorsDTR [employer] 200 Work Phone: Summary Purpose Family History No Family History Records FoundUnknown Family Member Name Dates Details Family history of thyroid di sease: Mother, Maternal Grandmother, Paternal Grandmother(V18.19, Z83.49) Status:Active Unknown Family Member Name Dates Details Family history of thyroid di sease: Mother, Maternal Grandmother, Paternal Grandmother(V18.19, Z83.49) Status:Active Unknown Family Member Name Dates Details Family history of thyroid di sease: Mother, Maternal Grandmother, Paternal Grandmother(V18.19, Z83.49) Status:Active Unknown Family Member Name Dates Details Family history of thyroid di sease: Mother, Maternal Grandmother, Paternal Grandmother(V18.19, Z83.49) Status:Active Unknown Family Member Name Dates Details Family history of thyroid di sease: Mother, Maternal Grandmother, Paternal Grandmother(V18.19, Z83.49) Status:Active Unknown Family Member Name Dates Details Family history of thyroid di sease: Mother, Maternal Grandmother, Paternal Grandmother(V18.19, Z83.49) Status:Active Advance Directives No Advanced Directives Records FoundNo Advanced Directives Records FoundNo Advanced Directives Records FoundNo Advanced Directives Records FoundNo Advanced Directives Records Found Chief Complaint * Patient followed for hypothyroid. Patient here with MotherBelinda * PCP: Dr. Rice * total thyroid removed 2018 [facility]; but no treatment * Endo: Dr. 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 Patient here with Mother, Belinda * PCP: Dr. Rice * total thyroid removed 2018 [facility]; but no treatment * Endo: Dr. 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 Patient here with MotherBelinda * PCP: Dr. 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 DATE CREATED AUTHOR AUTHOR'S ORGANIZ ATION 03/24/2023 [facility] EPIC FOR RECORDS PERTAINING TO PATIENTS WHO ARE OR HAVE BEEN ENROLLED IN A CHEMICAL DEPENDENCY/SUBSTANCEABUSE PROGRAM, SOME INFORMATION MAY BE OMITTED. This clinical summary was aggregated from multiple sources. Caution should be exercised in using it in the provision of clinical care. This summary normalizes information from multiple sources, and as a consequence, information in this document may materially change the coding, format and clinical context of patient data. In addition, data may be omitted in some cases. CLINICAL DECISIONS SHOULD BE BASED ON THE PRIMARY CLINICAL RECORDS. [facility] [employer] [facility]. provides no warranty or guarantee of the accuracy or completeness of information in this document.
== END 2023-10-29 11:25 | disposition home or self-care (01) ==
LOC: US 11:24
DX: E03.9 Hypothyroidism, unspecified (principal); E89.2 Postprocedural hypoparathyroidism; C73 Malignant neoplasm of thyroid gland
CPT/HCPCS: 76536

== ENCOUNTER 2024-03-25 20:06 | Outpatient (REF) | payer OTHER, SELFPAY ==
--- OUTSIDE RECORDS SUMMARY | 2024-03-25 20:15 | XMS_ITS | CCD ---
Author Organization [facility] Care Team Providers Care Manufacturing Development Engineer Name Role Phone DR EDITH GRIFFITHS Admitting Unavailable DORA, DR SHARMA Attending Unavailable [...] Attending Unavailable DEEPAK RICE Primary Care Unavailable Lonnie PACAramis Attending Unavailable Aramis Andrade Admitting Unavailable DEEPAK RICE Primary Care Unavailable EDITH GRIFFITHS Attending Unavailable DORI FINN Attending Unavailable Deepak Rice MD Primary Care Provider Allergies Allergy Classification Reported Allergen(s) Allergy Type Date of Onset Reaction(s) Facility (2 sources) Amoxicillin; Translations: [amoxicillin] Drug Allergy [facility] Repository (8 sources) Amoxicillin; Translations: [Amoxicillin TABS] Drug Allergy 4 [facility] 200 Work Phone: (2 sources) Penicillins; Translations: [PENICILLINS] Propensity to adverse reactions to drug (disorder) 4 [facility] 3 Repository Medications Current Medications Medication Drug Class(es) Dates Sig (Normalized) Sig (Original) citalopram 20 mg oral tablet (4 sources) Serotonin Reuptake Inhibitor take 1 tablet by mouth once daily citalopram (CeleXA) 20 MG tablet Take 20 mg by mouth Daily Active CeleXA 10 MG Ora l Tablet Quantity: 0 Refills: 0 Ordered: 23-Nov-2022 DO Active drospirenone 4 mg oral tablet (5 sources) Progestin Start: 11-27-2022 End: 07-15-2024 take 1 tablet by mouth once daily Drospirenone (Slynd) 4 MG tablet Indications: control counseling Take 1 tablet by mouth Daily 28 tablet 3 03/25/2024 07/15/2024 Active lisinopril 5 mg oral tablet (4 sources) Angiotensin Converting Enzyme Inhibitor take 1 tablet by mouth once daily lisinopril 5 MG tablet Take 5 mg by mouth Daily Active Lisinopril 5 MG Oral Tablet Quantity: 0 Refills: 0 Ordered: 23-Nov-2022 DO Active 24 hr metFORMIN hydrochloride 500 mg extended release oral tablet (5 sources) Biguanide Start: 02-06-2024 End: 02-05-2025 take 1 tablet by mouth every twenty-four hours at mealtime metFORMIN XR (Glucophage-XR) 500 MG 24 hr tablet Indications: Encounter for weight management Take 1 tablet (500 mg) by mouth in the evening. Take with meals Do not crush, chew, or split. 30 tablet 11 02/06/2024 02/05/2025 Active take 1 tablet by mel th every twenty-four hours metFORMIN HCl ER 500 MG Oral Tablet Extended Release 24 Hour Quantity: 0 Refills: 0 Ordered: 23-Nov-2022 DO Active Completed/Discontinued Medications Medication Drug Class(es) Dates Sig (Normalized) Sig (Original) ergocalciferol 1.25 mg oral capsule (5 sources) Provitamin D2 Compound Start: 05-24-2022 take 1 capsule by mouth every week Ergocalciferol 1.25 MG (27615 UT) Oral Capsule TAKE 1 CAPSULE WEEKLY. Quantity: 13 Refills: 3 Ordered: 23-Nov-2022 Dori Finn MD Start : 24-May-2022 Active levothyroxine sodium 0.125 mg oral tablet (4 sources) l-Thyroxine Start: 10-25-2022 take 1 tablet by mouth once daily Levothyroxine Sodium 125 MCG Oral Tablet TAKE 1 TABLET DAILY. 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 thyroid gland] Chronic Contraceptive and procreative management (6 sources) Sterilization requested; Translations: [Encounter for sterilization] Onset: 03-25-2024 03-25-2024 Episodic Diabetes mellitus without complication (6 sources) Prediabetes; Translations: [Other abnormal glucose] Episodic Genitourinary symptoms and ill-defined conditions (4 sources) Urinary incontinence; Translations: [Unspecified urinary incontinence] Onset: 03-25-2024 03-25-2024 Chronic Immunizations and screening for infectious disease (1 source) Encounter for screening for human papillomavirus (HPV); Translations: [ENC SCREENING HUMAN PAPILLOMAVIRUS] Onset: 03-14-2022 Episodic Nutritional deficiencies (7 sources) Vitamin D deficiency; Translations: [Unspecified vitamin D deficiency] Onset: 11-29-2023 Chronic Other screening for suspected conditions (not mental disorders or infectious disease) (4 sources) Encounter for screening for malignant neoplasm of cervix; Translations: [ENC SCREENING MALIG NEOPLASM CERV] Onset: 03-13-2022 Episodic Thyroid disorders (9 sources) Hypothyroidism, unspecified; Translations: [Hypothyroidism] Onset: 03-14-2022 Chronic Urinary tract infections (4 sources) Recurrent urinary tract infection; Translations: [Urinary tract infection, site not specified] Onset: 03-25-2024 03-25-2024 Episodic Results Test Name Value Interpretation Reference Range Facility Urinalysis macro (dipstick) panel (U)on 03-25-2024 Bilirubin, UA Negative Negative - 4(70) +++ mg/dL [facility] Blood, UA Negative Negative - 50 David/mcL [facility] Clarity, UA Clear [facility] Color, UA Yellow [facility] Glucose, UA Negative Negative - 2000(110) ++++ mg/dL [facility] Interpretation and review of laboratory results Normal [facility] Ketones, UA Negative Negative - 160(16) ++++ mg/dL [facility] Leukocytes, UA Negative Negative - 500+++ Loly/mcL [facility] Nitrite, UA Negative Negative - Positive [facility] pH, UA 6 5 - 9 [facility] Protein, UA Negative Negative - 2000(20) ++++ mg/dL [facility] Spec Grav, UA 1.005 1 - 1.03 [facility] Urobilinogen, UA 0.2 0.2 - 12 mg/dL [facility] THYROGLOBULIN AND ANTITHYROG LOBULINon 11-29-2023 THYROGLOBULIN <0.1 Low 1.3-31.8 [facility] Comment on above: Result Comment: INTE RPRETIVE INFORMATION: Thyroglobulin, Serum or Plasma Specimens negative for thyroglobulin antibodies (TgAb) are tested for thyroglobulin (Tg) by chemiluminescent immunoassay (NA) using the [employer] DxI method. Specimens with TgAb results [...] population. Performed By: #### T HYR2 #### ALISHA Valutao ([id number]) [address] [place] [address] THYROGLOBULIN AB (IU/ML) IN SER/PLAS <0.9 Normal 0.0-4.0 [facility] Comment on above: Result Comment: INTE RPRETIVE INFORMATION: Thyroglobulin Antibody A value of 4.0 IU/mL or less indicates a negative result for thyroglobulin antibodies. The Thyroglobulin Antibody assay is being performed using the [employer] DxI method. Performed By: #### T HYR2 #### ALISHA Plum) ([id number]) [address] [place] [address] THYROGLOBULIN LC-MS/MS Not Applicable Normal 1.3-31.8 [facility] Comment on above: Result Comment: INTE RPRETIVE INFORMATION: Thyroglobulin by LC-MS/MS, Serum/Plasma Lower limit of detection for Thyroglobulin by LC-MS/MS is 0.5 ng/mL. This test was developed and its performance characteristics determined by [employer]. It has not been cleared or approved by the US Food and Drug Administration. This test was performed in a CLIA certified laboratory and is intended for clinical purposes. Performed By: [facility] [address] [place] [address] Compressor Mechanic: Kaz Oh MD, PhD CLIA Number: [id number] Performed By: #### T HYR2 #### [facility] ([id number]) [address] [place] [address] TSH WITH REFLEX TO FREE T4 I F ABNORMALon 11-29-2023 TSH Qn 0.64 m[IU]/L Normal 0.44-3.98 [facility] Comment on above: Order Comment: TSH t esting is performed using different testing methodology at [facility] than at other [facility]. Direct result comparisons should only be made within the same method. Performed By: #### T WILLIAM #### JEREMIAS ALMARAZ ([id number]) [facility] ([facility]) [address] [place] [address] Cytology Cervical or vaginal smear or scraping studyOrdered By: Ju Kemp on 03-22-2023 [facility] HgbA1c Standardon 12-01-2022 .Hb 14.6 Invalid Interpretation Code [facility] Comment on above: Performed By: #### 1 [id number] #### [facility] (DEFAULT) [address] [place] [address] .Hgb A1c 0.58 g/dL Invalid Interpretation Code [facility] Comment on above: Performed By: #### 1 [id number] #### [facility] (DEFAULT) [address] [place] [address] Glucose [Mass/Vol] 117 mg/dL Invalid Interpretation Code [facility] Comment on above: Performed By: #### 1 [id number] #### [facility] (DEFAULT) [address] [place] [address] HbA1c (Bld) [Mass fraction] 5.7 % Normal 4.6-6.2 [facility] Comment on above: Performed By: #### 1 [id number] #### [facility] (DEFAULT) [address] [place] [address] Chart Updateon 11-30-2022 Chart Update Chart Update US thyroid reviewed 11/15/22 - Non specific 0.6 cm hypoechoic left thyroid area which seems non specific TSH 0.42 on 11/28/22 Signatures Electronically signed by : Dori Finn MD; Nov 30 2022 4:13PM EST (Author) [facility] Coding Summaryon 11-29-2022 Coding Summary HTMLBase 64 AzeaupfxXSc6xEn+PGhl YWQ+KI1RGQXnM43ifRZh xB5pE5GTWHrTDkftXINX FTtFBaXnlkXvRK9xqMJd ZXJu IC8+UK9pAKEvMztjmHTv k9O5xYI7G18irj5aDAbz eDJ7LIBlCnBvddcpf7wn vDb1NMwmFfooRxOq BHKpiX75ZJI3fG66Gm59 vGCkxCNgt5ubiCz1EzMi WONaEEH9bVzlJWhql1Hb WOFdW27xoZEfd6H9 IGNvbGxhcHNlOyBlbXB0 cX1sNDprntjap8xqqali Gmz0nj13mGIbc4U2vEM8 I9MewnD7JNLhgHNt EotsvKEOmZ8dwabnx9qj ombcWmOzDUFhMEp8MOs8 UZYvvJvtCcUkTC82FLD0 PERarpPwM9TfFYDz jDzuJoO0q4A8Ea5OH3RZ NtncO9WWIYVHFOvfzOC+ DB74op06F8ZkEdlkReb8 DFIpNHO7kNS2yJ0a ZRRbXFcce8B5zYU9X8Qf eoJjyh9va1bzJQEzVXhz H24keJZcl0G7XVEsqTV1 ZCHbvMvfQpGbwD04 Oyc+XMAhbIxrv6CgKcto k2jma4upjEu9KfemDURs ahMvaZceIJB4h7VzXh5t WVPedBH8sMT2nZ4h QmBsKjW5AIycR060XkDk wZVuZcgpB82jL1WxkXG+ PSHaXrb6TVKqpSrfMA5u C9OgCOUmlzkreBIq oAhvGH5oIWGwouunLXDc oK2hOCEzG5q3ThOrBsI8 BYyiY2PtPHPkotjnRt27 lQ8jQbUcClB0FZol I0MxhzY1BFCmvJTpMXlj SGO8E98dy2H2YQGxOHVa LTI5uVL5mE3sxLrbkdah bGVmdDsgdmVydGlj BYhiVCkfW936DDNzuWtj PkNvZGluZyBEYXRlOiAg MDgvMDkvMjAyMzwvdGQ+ XXXzRNO4sObqZZNy xPOjHMeeVy5dwDyqpJjf VU7uWICpgyjtZLOyqK0x QMBacHHhaMipNU8jGKGm gowkn027OzBmOXY6 CXIodEHbB7JzhC8jGuMi UNMsYUEjE4UrsVDyIXul C175GAgmSfV3JANwwaUw Z9TqMSQheAfvVfH1 a0C6Yi6Lu1FdyvsiM9Ts kMHqUvMfEjnnGEj1P3Ok PjwvdHI+YO25DAZjJW54 VWy0NAM9hAtvJVjd LXOdS2KryH6qLoVxZCYz ZGRkOyc+PHRhYmxlIHdp ZHRoPScxMDAlJyBzdHls YO4iTp1sVMMmPINy dGputIUhVoFqv3uhCZPu MPzkGG9dhKasF0OrkII7 JZQgh8x2Pa31W01gL5Cd dXA+HPPxaJI3pFH2 aF3tZgYjBkH3VLdiO812 DqSoeWHsKteos9qzq0ut dDy0GkC7PKZktqXnxNzv MCM1d7BrWs39L78n IHdpZHRoPSIxNSUiIHZh dXfmxk8maV2pAp6+PGNv sJZ2sSX3aK6pEvEhCgB0 RRadT939JaNtdPKj Vazty9dlu0nyfRn2FtUa BPAffyQlxTgfGBC9y7Wc Qj37I8SxnDsmy6SlUsf6 ax07cUSsn7L1zLB3 W4SsYGGlqfeebPWsoEni MP0yNHMxbzwaQFWwiV6e HXQkD2u6QtPlMyI6NUoq K4KzyoC2FSVhbIKp PUYomZKDyB2ckkvjd0pd zypnZzXtFSHkQJz2JYd6 AIOowOqnGiGiPPF1VaM7 GGR2zHFoiT5lkFgj gfslnA7kIyx+OLM4zSWo zSXDYS5mIpnixGJ+PHRk TML6dKaxJBmcSBRswB7n EJQtP1n3PcXnZoA5 AVnpB9QbuvO1WWLhoQYh PCZeaCFWqN0vwwvyy4kh mcvnHcJqDEVbBJw4FVb1 LWFsaWduOiBsZWZ0 IrI8MCE8vTCdiO2dqQvm ezdvtC1yVjb+QmlydGgg ZNO9UOi1C4LwCta4OCZc bRozIU1aeOZkLCri Ck8hwDhxuMryZN8kLLFp qjfit562HqVjb5jfTYNu iRTvERfrZOR1P27ce9S7 JLUrZPAvTEM4lAH2 nI6grRqeeszlfTImgHcq yfLslRcxAFecIQnsY094 JDEprFosDzAcPSd1O4Bh Uqe2BTVblAekDL0m gPNrNNcdHu4eaGfhoUdk NZ1oXCVqgsxjd818ZyNc y2csFQTfoVCkFMhwFWP7 G78nk9U9KALuZSPn KVQ4oIB9sH3aqFgibjhi bGVmdDsgdmVydGljYWwt CShqA847JIWfbRcoUnXn zAb0R3CfSio1MUZe oDaxXP9ejNQdASkyUq5d bZssaYhjUH5mTBUsrbhs k238LoGst0vfUHDegIUb QVqvMVU1S23vi7Q3 USDjCZTtHTD3lVN1fL8l bGlnbjogbGVmdDsgdmVy uSujERgfUWddC334BAIy cDsnPlBhdGllbnQg KJoeAXt9U5CxKshuaQF+ KJ97XHLyBF01dBNxhGQr o4bkpPh4KqIzUYJxQMQ5 xKwlKMpzs1PrYGCl R56arUDrq8H4LWGpjFve dLNzGeLifXQ8pU3hGDck haicg0ycckwaGueui6jx mh58xL84T55zIQre ZHRoPSIzMCUiIHZhbGln qv6eeV5sCj2+PGNvbCB3 kOP5uM7nQDLvNfW4VWbl L122WcYwdEBhMluy u3axl1sotJh9AxY6FHEl wyRmjMdlGEE1n9RyAg51 I46pNBalFZRxBQXhHZDc WTRjwUijsr1opV6s Ii8+VSLmkUB0hHZ8hQ8f VzDtCoU3RMulD093RxYw nJJcUlbeC72bQ6AziRN+ ZXBlQfu9MMTagGuj TX2nvYGrUIzlYh4vNFL6 SaDaWcZeNNxnY3BrXAJt myxodpklvIT1OGZrTXCe oR64Uy6nmCcpXAOc nJNXbB4icdjog8pzavht BjZyJIBaCTt2BBd0RLKe jSrhEdEhEYP6XyL9SAP7 xPOyuH8ozTlopnma wZ2kZ3LbWJWvatcuAy04 gR9hPmJePyS8WBxpXhj+ R37QIZbrGJ4LODOPWBZD EZ71BT14nCXtx2F5 yOU6W6YyBHYesyllgmsu bMA6KYXuEXSseT22yQNk BNmrZn2ml8C6i407DPQc ACDvrY30Wj7jkPlt PNSebYQCoF5cjosqv2qe kvplBpLsKJQyYSo8EXl2 OWSteWonYxAwNXN2NgX7 GAN1pZPzhE4puSth bztgmK2sXsh+MDcvMzEv NHd8AIwnwHI+PHRkIHN0 zJfeFBpcQNIkmC2iNEPl L6f4UxUcTdD8YTjo U2WfNJAjxhhsVm75xB1v UdMyAgO0KLukY7ZwrnS0 YPWabUVrPQesADL5D68r c8A7NGLzKQRpDMI6 eXS3rI8wgUrmqtwyyXCf dDsgdmVydGljYWwtYWxp T819RLStaGcoAqW4SGnn VQCbMH08UW67eKGz c1U6eHF1K0GlAQMonado ndhffES0ERBkPBPenY15 yYAyPNybTh3nc0Y1m635 FODtQMQdqB66Kb5f xHhjOZPkiDAWqE8feeom b2funyhnDqBjHTSvZKu0 ZXf8ZZHvfEsyXeLgSPX8 KqF4QYM6mCTmhF6y oAzuhhaqpM2yHkr+RkVN JHkEMY14JZ98fDVhz7L7 qPN5O4WhAIYjuzoptytz eUY9HILxYMHqcX26 sZLfCQjrWp2iv2O6l907 CWArJUKqzT81Sw5tgAyg PXSgeOWAkB4tmrmqj1mb cjogIzAwMDAwMDt0 NEu0TJAvrPnvAhUgYLO0 ZgM6QBR2gKEfeW6ueMah wiqelX9yUem+T9H9P2Sm PjwvdHI+FO33FMGs SH22vWQmeISlg1fbeFt9 JzNeSDNyJRE1vTdjPAzt q8YjTRBfM52akHUfh4W0 IGNvbGxhcHNlOyBl fJK0xA3gAAlqpugxd1uo ncbuNihyq7kmfd94hF09 P59lRTmbEBXqAMNqYYRa MEPwdVtbri9oeD9g Ii8+OMAukNU7lUN0sS1p QwXjQzA2NKzqU219VlPy cVDmTbrxd1dio9tbmEb7 IjIwJSIgdmFsaWdu TYT0c7NaLv86L29gBNic ZHRoPSIyMCUiIHZhbGln se3gaG7rSp1+UT8go8qm mp36jD49gAB+PHRk PUO8zRdmTKvyFTTcnG5n KYxyPfH9QXShViBlnI82 zCYxPXflQp0fuZtxkLzf HE9rTTBvhmham186 ObSku1hbVYAyoBKiHKtl PUD0B80gv2U0CVUvARBf DTJ9uZR5yQ6ngUkaqarj bGVmdDsgdmVydGlj ISmdIDmgO700CVXtvSih EyJrjSKmW9fmhdAGAD7d OjwvdGQ+CDGkQQB7bRhk NNqfLBUowL8sUIMa I8o9LdKmBzU4CHlaM6Nq esJ6BTJgzKHdSNRodNJA sX5oqytwk3grbkpiJkMm UUWoWDt0SLt6OYMc dPfgSbVfJJC4CqP9IWC4 uLBqqE0tuLwpmfbfrS6l Oyc+RklOOjwvdGQ+PHRk RSV1qXaaUMmwFGQa kZ2lRUZgU3l8PyJyFpL7 MSgwZ0AjklS3CEOhcHJn VNOetDZJeP9damnyi9rd cjogIzAwMDAwMDt0 ETc7MOBzqIutAyPzZTO1 UpA3IVK9pVWszH9irRvn vkvycM5jEmw+TVJOOjwv dGQ+NMBmCVP5iYoj GFhjDISpsB8eORTeA9s9 DoHcAmF4OHfsG9QohqJ2 MIFttDMjNWZguFUUkA2h hxbbl0owljkcTwWw YNYaQLo3NKa2FVCogGwa VjKgQHW2LbN3KQO1hTHh yS6lrKizfdurzF8fUrw+ YHI2HDO2MK45EE36 F5HuWzlouOMraQV+PHRh YmxlIHdpZHRoPScxMDAl DzFgiQsfYS1fBp8hFCRb LWNvbGxhcHNlOiBj b2x (more content not included)... Normal [facility] Thyroid Antibodies LCon 08- Thyroglobulin Antibody LC <1.0 Invalid Interpretation Code 0.0-0.9 [facility] Comment on above: Result Comment: Thyr oglobulin Antibody measured by Reji Lin Methodology Performed At: [facility] [id number] Christine Lin PhD Ph:[phone] Performed By: #### 1 [id number] #### [facility] (DEFAULT) [address] [place] [address] Thyroid Peroxidase (TPO) Ab LC 19 IU/mL Invalid Interpretation Code 0-34 [facility] Comment on above: Performed By: #### 1 [id number] #### [facility] (DEFAULT) [address] [place] [address] Thyroxine (T4) Free, Direct, LCon 11-29-2022 T4,Free(Direct) LC 1.75 ng/dL Invalid Interpretation Code 0.82-1.77 [facility] Comment on above: Result Comment: Perf ormed At: [facility] [id number] Christine Lin PhD Ph:[phone] Performed By: #### 1 [id number] #### [facility] (DEFAULT) [address] [place] [address] Provider Orderson 11-28-2022 Provider Orders [id number] #[id number] Normal [facility] TSHon 11-28-2022 TSH Qn 0.42 m[IU]/L Low 0.45-5.33 [facility] Comment on above: Performed By: #### 1 [id number], [id number] #### [facility] (DEFAULT) [address] [place] [address] Follow Up (Endocrinology)on 11-23-2022 Follow Up (Endocrinology) Diagnoses/Problems Assessed Hypothyroidism (244.9) (E03.9) Pre-diabetes (790.29) (R73.03) Papillary carcinoma of thyroid (193) (C73) Orders Hypothyroidism Renew: Levothyroxine Sodium 125 MCG Oral Tablet; TAKE 1 TABLET DAILY Rx By: Dori Finn; Dispense: 0 Days ; #:90 Tablet; Refill: 2;For: Hypothyroidism; CARIDAD = N; Verified Transmission to [facility] 9869; Last Updated By: Christopher King; 11/23/2022 1:16:32 PM Hemoglobin A1C; Status:Active; Requested for:23Nov2022; Perform:[facility] - Lab To Draw (Blood Test); Due:21Feb2023;Ordere d; For:Hypothyroidism; Ordered By:Dori Finn; T4 - Free Thyroxine, Serum; Status:Active; Requested for:23Nov2022; Perform:[facility] - Lab To Draw (Blood Test); Due:21Feb2023;Ordere d; For:Hypothyroidism; Ordered By:Dori Finn; THYROGLOBULIN AND ANTI-THYRGLOBULIN AB; Status:Active; Requested for:23Nov2022; Perform:Lab Services - Lab To Draw (Blood Test); Due:21Feb2023;Ordere d; For:Hypothyroidism; Ordered By:Dori Finn; TSH - Thyroid Stimulating Hormone, Serum; Status:Active; Requested for:23Nov2022; Perform:[facility] - Lab To Draw (Blood Test); Due:21Feb2023;Ordere d; For:Hypothyroidism; Ordered By:Dori Finn; Vitamin D deficiency Renew: Ergocalciferol 1.25 MG (16312 UT) Oral Capsule; TAKE 1 CAPSULE WEEKLY Rx By: Dori Finn; Dispense: 90 Days ; #:13 Capsule; Refill: 3;For: Vitamin D deficiency; CARIDAD = N; Verified Transmission to [facility] 9839; Last Updated By: Christopher King; 11/23/2022 1:16:29 PM Provider Impressions 47 yo woman came for eval and treatment of thyroid cancer All records at [facility] She mentions in Summer 2017 she was [...] 12, TPO ab 320s tg 12 in 2017 TSH 0.73 TG < 0.1 ATG neg [...] Belinda PCP: Dr. Rice total thyroid removed 2017 [facility]- micro carcinoma; but no treatment levothyroxine 125mcg [...] 10 MG Oral Tablet Ergocalciferol 1.25 MG (87635 UT) Oral CapsuleTAKE 1 CAPSULE WEEKLY. Levothyroxine Sodium 125 MCG Oral TabletTAKE 1 TABLET DAILY. Lisinopril 5 MG Oral Tablet metFORMIN HCl ER 500 MG Oral Tablet Extended Release 24 Hour Slynd TABS Vitals Vital Signs Recorded: 23Nov2022 12:55PM Sy (more content not included)... Normal [facility] C Throaton 06-16-2022 C Throat Ordered by Discern. Normal throat aris isolated No pathogens isolated Normal [facility] Comment on above: Performed By: #### 4 [id number] #### [facility] (DEFAULT) [address] [place] [address] Coding Summaryon 06-15-2022 Coding Summary [employer]Base 64 ZadrdevwGGg5tLx+PGhl YWQ+IH3OTWMjS86hjUEt sF2CN0gUYX2KEVTABLMH NE2RMP0lwFB9JRezM0Mq biAv PmlrrXYpSL50ZVy5XNK6 lBuaGXrqcJ1rcCVeY2n6 SmReXL76yT83KRxtYGFr IcM7LeKbxcmqgQKv S8ksOdJorORxNzd+PHRh YmxlIHdpZHRoPScxMDAl QvIjeDnxWD4lIg1nZWJq LWNvbGxhcHNlOiBj d9rlVNTaWYjiYF1ynNls W5BrjPV8GSFbc9y0Zn56 dHI+AHVaAZH1aBswVOqu r013AaDeq5cuJAI2 zAXgOQsyOCZ6H35lg1Z8 ITYtQGFjYDR1xIG2gD1j vXfwhydvS8ZkmGKkStE5 JZW9iAUqgC9phJug pivxvE4zTdp+O52MUG6V GBGXQO5CKxv0V9IaZgdo dHI+EB17UOZfKO51cYAo tXFfx7kqqZi2PiNu IRNfCZP8sHkxQKoiu1Ub RUHfI82mnCIgt8I6CSBa cCbblFDxGxMvbRY8uV4n KAsfqogof8wftsnp Vuurx3yhem00nT03H28f EVrxYPXvJGI4FBTtOPRk nJlkwb5rfI2rEb8+IDxj q8fgq4sfvRz6UxQm PNVorqNglSvqIQB4q4Fe Si84B2McbMnoy9DsXyw9 dj31gDRrz0D9wSY4NZqa NFQbaH9tDUkdArX7 LIEpIqYnuQ03hDKjPOpy Aj5tyXoylUvlBA7fFNLp wzulRVJmmG2vMNNxyGXy bLcrOT0eKFHfsjhn h175OcZhDNA9QXTduGNp K8KamC3bQaXfDEOkQAGa R0DzmYEtORaaV709SZmu BsT1TQWoisZyY8Gg ZMQmcOpbGtZ7f4J4Pg0J e8VsuqioFCV1SLyzICPw MgIyVjUaLdM6N4JrSan3 JUKekQziOT1zB3Fw SDXxfkfuufvplLV5INWg LMPvvA47zLRbAYsmJl9y u4Y3m264XHLwCTJdvM32 Jn7xvTjeUXLodFNI iH2zpghtd0ubmnopNkFs UNAhTSt0SAg1BTZfzMao XgDjCGF5BtB2JLJ6tPRm uP4dbYdhiqyljP6c Oyc+Y37euW3aUFU2KJB0 kcquDBHxejNbCV45JR72 Q7FdQrvvfOWktEU+PGRp zbNhvNwbAT5wCiSt y7zkb1WmXUynG3KgYCIi BNaoRnd6YCPwCMN4cQN4 aE3xDOOdZYxtr7Y7uOR8 G5WlznYuwe0ul2jo RKSyUYpqQ04xeDZqo2M4 JLOdkKY7NLHdzWdePmFp kT64Xiu+NHMwqNgsd9Or Svxsa6uto2dpdNp2 IjMwJSIgdmFsaWduPSJ0 p9PqLf79U08hBCmyQKTf CNKdBGAhSYDbnCerrv3i xT9lYo1+PGNvbCB3 tHA3aA9gQSPyPpH2CWfk A593MsTzrECzLiaaj6na x4muwSj1VxQsUBIadtYf jHtzDRF0g9KhDz75 U75jTDuwVUNrBRDsWACv FJHjyZqnuu3yfO4zDf9+ KP9zf2atdy81pC26qSX+ MFCtGTB4iAgwZMxs DNZdvU4yETatBgC8BHIc VdGtoS12lFEeQDqoFw9k rCcbwQiwPU3zXSGcdjli w070VzOzt7esCADv fUQxPGkwIOJ5J46ko9M6 YJMnVVMaJFQ0eQR8rB4o bGlnbjogbGVmdDsgdmVy iYffZDkfCUcfD637 IHRvcDsnPlBhdGllbnQg LtBbFSg4O3LoNjg0DRQg bPhrRW7enWEcHOkqUo0b qQzsxKnhQJ0lAUFx pbxpo617HpKvd5xtGSCx rTJtZLujJUI8H43wx3T0 KERcCKZjOYD0qXR8fH3z bGlnbjogbGVmdDsg swZlgSnwMVtwNZxfX592 IHRvcDsnPkJpcnRoIERh xBW8OE36UH16fKZfp7O9 oHL7O2FoEGJauapx husqsWS3FRBoFEHcpR25 Xt6uiNxxGi8vOUGePTR7 EUWizLVaO2NrpL4vTxQs LCPrXQGsH6GkeXLb CDaxV104PUjpLqF2WSSg buAuU8ZtMGLcwKejChO2 z3W3Bz6KP3G8ZP73MD30 iNKkv8O6wIC0Y4Rb IGAmznhhnhtkjBN0VMTh MGWqvW68Ic7uxIwlSl4y CYXuDOX6GLXpxEXaA1Mz eW7vWhBjYRZgOTPi O7ZfyHMsUSpqF414GXpw ZoC7HVQvppYdG5QdWSOl pJfbCeZ7t8U1Fl7ATFr6 VA36EW73iBJty7C2 cDX9F5JqYYHflstydlcg kXT5QVObBZOizB22Qz1c gAdpZt1sULHjYEB8UWAd kFRzF8WitN7fBaDc NQOvUONqQ8QrqBPdUVgv Q587RUsoBvP4FVXqpgKs V7VgGERinAjlKhM6z1X5 Ka7EGFJwCH36OGC5 bWU0QX33BD26P3PeDsfw dGFibGU+PHRhYmxlIHdp ZHRoPScxMDAlJyBzdHls MZ7zLc8qWUFgDULb bIeogPRhOpIak7hwSEXt GNdpGE3sjNwuB0QjcUE0 RJJuj3c3Ul97S48sL4Rf dXA+ORFgbFF6lRV9 gD8sCmJmApM9FGhtM089 OcOqsEMhYnulj9thy0ox gMs6NyE9DUMhscRpwSeh HPJ8h2QgAk38G08s IHdpZHRoPSIxNSUiIHZh fFnxxq7naO7xUp4+PGNv yTI3xEM4eU8qIfLbIgR4 LXgzL842GgGeqSKn Osmzz8nvd9adiBt2PvTj XAWwrcVeyOjyULJ2q6Np Nt55O7UznZmjm0FvXbt2 lu44sTOck1B7sGR1 Y0HpNOAzuhtudCGkeTvo DU0gELDpaaktCHJmgP1f AZGpQ5h4XnLlOcZ3LOva D2XwrxL9VNEjqXRs IElqAFR4D29la5R0AODz OSYzUIZ4uGZ3tM8hnFch bjogbGVmdDsgdmVydGlj EGlsAYgsY756QWIk jKufHLFyxM2sBWVkpNIv vJlgWC0iQLYezzunGrlL REFLLCBPTElWSUEgUjwv dGQ+ZTOzHTX5bZdu DVqnDKSxnM8sBOKfQ6s9 AhBuMfM0JZdqG8DrUJMs lsyeZl73aA0gHqYkCnL1 CImlB9YpfqK4PPTj eOGmWRzyTLV9T29rz1M2 GNAeBPSqQTC9fXY9qI0u bGlnbjogbGVmdDsgdmVy xJfaEQrwASphM439 NTGjlVcdQjU1CsRzNbE2 ZvP7P6VwQbj4HCZpxNwt OF2znRJtGFhuFk3hdLhl kHdzUM0oXNHcctdf MXYinK5hYTSdrIRbgGst QD0aJXMyeyyzb367TyBw RPL7ZHEwcSAnA5MwlI1i OmZpIIUcHGVfC0Cy aBKrEZanE360KJqlBdF1 ABBimkNoH0AtRYSqhYea BiU7p3M9Qb71TlDCBUWe czwvdGQ+PHRkIHN0 oHdiPYoeTXHntX6pOLCs O7y2MePoXnN1MVkvG1Nw GANjgaygEs71lX5wPfNe UlM6UCdrK0LnbyD8 XAGknDKkFEkjFDL8Q40s x0P9WYOfIEEcPHA8fKI1 xF6edSapkucroQUouAog dmVydGljYWwtYWxp P282BZLdeZndTaONBHFE RTwvdGQ+DCSwMMW8tYqa NDqoGNFplZ3lLNLnE7h4 YrCxAuB8ZSyxR7Qd HPCfwwtqUc40fM3qGzDw ZuF3GNfnU6TnccF2ANNn pBIhQTpuZXN3R55ty2D5 RLTgCXZvMKH8lKX2 hZ9fiZocgravdLJsjMvu shCjeUqrOHvhGXdpW118 MVSdbUhmDs0OOS82ZR85 B6QaTcujcMVflGW+ PHRhYmxlIHdpZHRoPScx AQKtPsNpyCtzIP5yUv5g ZGVyLWNvbGxhcHNlOiBj v4ndRZDiVNzcSO5a uFrrA4VckVG2JPHyk6g2 Sw49G87jW1PttVN+PGNv yUI3eTT5wB5aFeYiFyA0 XJbuX625JnUexRSg Uwmvq9isu9dxuMb2AzUv TEFxhkXltBsgTJZ2y2Ah Hz50P85iHEzxPAIrBDTk KJOoVPOypGfqar5t hR2aYk6+GBKefQK4uRO3 nV1kZnMdIwC0NXiiF843 XvPakWIoFpndT91uK1Tm dXA+APNiRdm1DHTn qMsgSV5roIYnFMhrCk7d UYW9KpOoHgXtNLbzI5Uk OQLphvapxyshfJN8UNBr QPMciX12Ne8wgVus Xf4pJYMxDMQ3BGQsvWTn Q8OfaL8lLhXxYWBbCADk L1RfuBByJNwdX599QUfz HkQ5ROXdcnBfH6Uv HDRylZmbIqB1n7Y6Yi8P dCesyNOuDE6iBiZmMOl8 Z0AbWtg8NUZfkFtsAJ0l zLRiFKruWq3uoGwa cMfkKN7zFJVndfnvh682 BoVpk4vnQOTbeEThSOlb IQX8M24bz9O7IHLoUMAz ILH3zVG6hW5ocYiv bjogbGVmdDsgdmVydGlj OUlkLIdyA173ZCFguByu XpGKKsp1Z1SoLrl8RQUq yOgqWV1jzTShZVwo Ln7gjVyquPxhMK6wLJTa pgnjo941TdFyv0liDNLe nXFeHCygEOA1X63ml6U2 UUCpHHIpDDP9iDM8 bA9pwTxcizmzjRYfdDgu rtRxoCvbWFmpARgvV714 BAYbkJxmXp5FBae5K7Fk Cye0YKCltMsyKT2d rFSgMMpwAp2yvTmgbHmg IE7zCUZmqtkli816GpQe i9hxUQMeaMYjGHxhDPV1 Y57fd4B0DDZnUNDw MSR0lVF5cA5zaOduydki bGVmdDsgdmVydGljYWwt VUjjC333ZGBxxXjoDuJx eWVyOjwvdGQ+PC90 rg75P0VcQwlcLld7IXBk KNS4fZE6hD6nMBWaHAfz o8O5mBO6X5KuktRaeh3y h9dzLMIeROkoD65k bGF (more content not included)... Normal [facility] ED Clinical Summaryon 2022 ED Clinical Summary [facility] ? Urgent Care [address] [place], [place] [id number] Clinical Summary PERSON INFORMATION Name: SUSHMA CHAPARRO Age: 46 Years Sex: FEMALE : 1975 MRN: Acct#: Visit Reason: UC - Sore Throat; UC - Cough; UC - Cough; COUGH, CONGESTION, SORE THROAT, LT EAR PAIN Arrival: 06/13/2022 09:38:23 Discharge: 06/13/2022 11:00:00 LOS: 000 01:22 Check In: 06/13/2022 09:38:23 Checkout: 06/13/2022 11:00:00 Address: [address] [place] [address] PCP: DEEPAK RICE MD PROVIDER INFORMATION Provider Role Assigned Unassigned January ARDON, Sasha ED Nurse 06/13/2022 09:41:28 Aramis Andrade [...] Adult Follow-Up: With: Address: When: DEEPAK RICE [address] [place] [phone] Business (1) Within 2 to 4 days [...] AM and PM x 10 days. -Take rkjn-nwx-zitfxnw Ibuprofen every 8 hours or Tylenol every 4 hours for sinus pain or discomfort. Seek additional medical care if worse, chest pain, shortness of breath, headache, fever over 101.5, worsening symptoms in any way. DIAGNOSIS: Acute left otitis media; Acute pansinusitis; Bilateral impacted cerumen Patient Understands: Yes - Patient/family/careg iver verbalizes understanding of instructions given Comment: Normal [facility] ED Patient Summaryon 023 ED Patient Summary [facility] ? Urgent Care [address] [place] [address] PATIENT DISCHARGE INSTRUCTIONS Patient Information Name: SUSHMA CHAPARRO Age: 46 Years Date of : 1975 Reason For Visit: UC - Sore Throat; UC - Cough; UC - Cough; COUGH, CONGESTION, SORE THROAT, LT EAR PAIN Arrival Time: 06/13/2022 09:38:23 Primary Care Physician: DEEPAK RICE MD Attending Physician: Aramis Andrade Comment: Patient Education With: Address: When: DEEPAK RICE [address] [place] [id number] Business (1) Within 2 to 4 days [...] AM and PM x 10 days. -Take sxsp-yqi-pqcajym Ibuprofen every 8 hours or Tylenol every [...] Follow these instructions at home: ? Take cbxc-mup-imuppzj and prescription medicines only as told by [...] when you (more content not included)... Normal [facility] Strep Aon 06-13-2022 Strep procedure control Pass Normal [facility] Comment on above: Performed By: #### 4 [id number] #### [facility] (DEFAULT) [address] [place] [address] Streptococcus A Negative Normal Negative [facility] Comment on above: Performed By: #### 4 [id number] #### [facility] (DEFAULT) [address] [place] [address] Urgent Care Note- Provideron 06-13-2022 Urgent Care Note- Provider Patient: SUSHMA CHAPARRO Age: 46 years Sex: FEMALE : 1975 [...] a 46- (more content not included)... Normal [facility] Rec[place] 023 Urgent Care Record [facility] ? Urgent Care [address] [place] [address] PATIENT DISCHARGE INSTRUCTIONS Patient Information Name: SUSHMA CHAPARRO Age: 46 Years Date of : 1975 Reason For Visit: UC - Sore Throat; UC - Cough; UC - Cough; COUGH, CONGESTION, SORE THROAT, LT EAR PAIN Arrival Time: 06/13/2022 09:38:23 Primary Care Physician: DEEPAK RICE MD Attending Physician: Aramis Andrade Comment: Visit Diagnosis: Diagnoses This Visit Acute left otitis media (H66.92) Acute pansinusitis (J01.40) Bilateral impacted cerumen (H61.23) UC - Cough ([id number]) UC - Cough ([id number]) UC - Sore Throat ([id number]) If you received any narcotics, sedation, or [...] legal documents With: Address: When: DEEPAK RICE [address] [place] [phone] Business (1) Within 2 to 4 days [...] AM and PM x 10 days. -Take wtsr-nli-jqmrwmj Ibuprofen every 8 hours or Tylenol every 4 hours for sinus pain or discomfort. Seek additional medical care if worse, chest pain, shortness of breath, headache, fever over 101.5, worsening symptoms in any way. Medication Information: The exam and treatment you received today in the [facility] were for an urgent problem and are not intended as complete care. It is important for you to follow up with a doctor, nurse practitioner, or physician?s assistant community director for ongoing care. If your symptoms become [...] so we can reach you if necessary. [facility] has provided you with a complete list of medications post discharge. 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 Any specific questions regarding your chronic medications and dosages should be discussed with your primary care physician(s) and/or pharmacist. New Medications [facility] [place], [place] [id number], [phone] azithromycin (Azithromycin 5 Day Dose Pack 250 [...] bpm Respirat (more content not included)... Normal [facility] THYROGLOBULIN AND ANTI THYRO GLOBULIN ABon 05-28-2022 ANTI-THYROGLOBULIN AB <0.9 Normal 0.0-4.0 [facility] Comment on above: Result Comment: INTE RPRETIVE INFORMATION: Thyroglobulin Antibody A value of 4.0 IU/mL or less indicates a negative result for thyroglobulin antibodies. The Thyroglobulin Antibody assay is being performed using the Reji [employer] Access DxI method. Performed By: #### T HYR2 #### [address] [address] THYROGLOBULIN <0.1 Low 1.3-31.8 [facility] Comment on above: Result Comment: INTE RPRETIVE INFORMATION: Thyroglobulin, Serum or Plasma Specimens negative for thyroglobulin antibodies (TgAb) are tested for thyroglobulin (Tg) by chemiluminescent immunoassay (NA) using the Reji Lin Access DxI method. Specimens with TgAb results [...] population. Performed By: #### T HYR2 #### [address] [address] THYROGLOBULIN LC-MS/MS Not Applicable Normal 1.3-31.8 [facility] Comment on above: Result Comment: INTE RPRETIVE INFORMATION: Thyroglobulin by LC-MS/MS, Serum/Plasma Lower limit of detection for Thyroglobulin by LC-MS/MS is 0.5 ng/mL. This test was developed and its performance characteristics determined by [facility]. It has not been cleared or approved by the US Food and Drug Administration. This test was performed in a CLIA certified laboratory and is intended for clinical purposes. Performed By: [facility] [address] [place] [address] Compressor Mechanic: Kaz Oh MD, PhD Performed By: #### T HYR2 #### [employer] [address] [address] COMPREHENSIVE PANELon 2022 Albumin [Mass/Vol] 3.9 g/dL Normal 3.4 - 5.0 [facility] Comment on above: Performed By: #### C #### [address] [place] [id number] ALP [Catalytic activity/Vol] 57 U/L Normal 33 - 110 [facility] Comment on above: Performed By: #### C MP #### [address] [id number] ALT [Catalytic activity/Vol] 12 U/L Normal 7 - 45 [facility] Comment on above: Result Comment: Martha ents treated with Sulfasalazine may generate falsely decreased results for ALT. Performed By: #### C MP #### [address] [id number] Anion gap [Moles/Vol] 11 mmol/L Normal 10 - 20 [facility] Comment on above: Performed By: #### C MP #### [address] [id number] AST [Catalytic activity/Vol] 15 U/L Normal 9 - 39 [facility] Comment on above: Performed By: #### C MP #### [address] [id number] Bilirubin [Mass/Vol] 0.3 mg/dL Normal 0.0 - 1.2 [facility] Comment on above: Performed By: #### C MP #### [address] [id number] Calcium [Mass/Vol] 8.7 mg/dL Normal 8.6 - 10.3 [facility] Comment on above: Performed By: #### C MP #### [address] [id number] Chloride [Moles/Vol] 105 mmol/L Normal 98 - 107 [facility] Comment on above: Performed By: #### C MP #### [address] [id number] Creatinine [Mass/Vol] 0.79 mg/dL Normal 0.50 - 1.05 [facility] Comment on above: Performed By: #### C MP #### [address] [id number] eGFR FEMALE >90 Normal >90 [facility] Comment on above: Result Comment: CALC ULATIONS OF ESTIMATED GFR ARE PERFORMED USING THE 2020 CKD-EPI STUDY REFIT EQUATION WITHOUT THE RACE VARIABLE FOR THE IDMS-TRACEABLE CREATININE METHODS. https://jasn.asnjournals.org/content/early//ASN.2020 361338 Performed By: #### C MP #### [address] [id number] Glucose [Mass/Vol] 85 mg/dL Normal 74 - 99 [facility] Comment on above: Performed By: #### C MP #### [address] [id number] HCO3 (Bld) [Moles/Vol] 26 mmol/L Normal 21 - 32 [facility] Comment on above: Performed By: #### C MP #### [address] [id number] Potassium [Moles/Vol] 3.7 mmol/L Normal 3.5 - 5.3 [facility] Comment on above: Performed By: #### C MP #### [address] [id number] Protein [Mass/Vol] 7.3 g/dL Normal 6.4 - 8.2 [facility] Comment on above: Performed By: #### C MP #### [address] [id number] Sodium [Moles/Vol] 138 mmol/L Normal 136 - 145 [facility] Comment on above: Performed By: #### C MP #### [address] [id number] Urea nitrogen [Mass/Vol] 12 mg/dL Normal 6 - 23 [facility] Comment on above: Performed By: #### C MP #### [address] [id number] Initial Visit (Endocrinology )on 05-24-2022 Initial Visit (Endocrinology) Diagnoses/Problems Assessed Hypothyroidism (244.9) (E03.9) 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) Pre-diabetes (790.29) (R73.03) Orders Hypothyroidism Comprehensive Metabolic Panel; Status:Active; Requested for:24May2022; Perform:Lab Services - Lab To Draw (Blood Test); Due:22Aug2022;Ordere d; For:Hypothyroidism; Ordered By:Dori Finn; T4 - Free Thyroxine, Serum; Status:Active; Requested for:24May2022; Perform:Lab Services - Lab To Draw (Blood Test); Due:22Aug2022;Ordere d; For:Hypothyroidism; Ordered By:Dori Finn; THYROGLOBULIN AND ANTI-THYRGLOBULIN AB; Status:Active; Requested for:24May2022; Perform:Lab Services - Lab To Draw (Blood Test); Due:22Aug2022;Ordere d; For:Hypothyroidism; Ordered By:Dori Finn; TSH - Thyroid Stimulating Hormone, Serum; Status:Active; Requested for:24May2022; Perform:Lab Services - Lab To Draw (Blood Test); Due:22Aug2022;Ordere d; For:Hypothyroidism; Ordered By:Dori Finn; Ultrasound Neck; Status:Hold For - Scheduling; Requested for:24May2022; Perform: Radiology Services Imaging; Due:22Aug2022;Ordere d; For:Hypothyroidism; Ordered By:Dori Finn; Radiologist to Determine Optimal Study : Y What are the patient's signs and symptoms? : h/o thyroid cancer , micro carcinoma Vitamin D 25-Hydroxy; Status:Active; Requested for:24May2022; Perform:Lab Services - Lab To Draw (Blood Test); Due:22Aug2022;Ordere d; For:Hypothyroidism; Ordered By:Dori Finn; SocHx: Former smoker Tobacco Use Screening; Status:Complete; Done: 24May2022 Perform:Not Applicable;Ordered; For:SocHx: Former smoker; Ordered By:Aramis Caputo; Provider Impressions 46 yo woman came for eval and treatment of thyroid cancer All records at [facility] most history from pt and some labs [...] in past ADDENDUM : she bought [facility] from past: 04/02/2013- PTC 2.2 [...] it for 2 yrs 1 Amended By: Dori Finn; Jun 09 2022 12:58 PM ESTChief Complaint Patient followed for hypothyroid. Patient here with Mother, Belinda PCP: Dr. Rice total thyroid removed 2018 [facility]- micro carsanoma; but no treatment Endo: Dr. 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 Normal [facility] - Chemistry and C hemistry - challengeon 05-24-2022 Albumin BCP dye [Mass/Vol] 3.9 g/dL 3.4 - 5.0 LT-OYBS-Dhbtw goldie 201 Work Phone: ALP [Catalytic activity/Vol] 57 U/L 33 - 110 YK-YHDD-Gyrfw goldie 201 Work Phone: ALT With P-5'-P [Catalytic activity/Vol] 12 U/L 7 - 45 MX-CBUY-Rtbtk goldie 201 Work Phone: Comment on above: Patients treated wit h Sulfasalazine may generate falsely decreased results for ALT. Anion gap [Moles/Vol] 11 mmol/L 10 - 20 MP- [facility]SP[facility]-Westl goldie 201 Work Phone: AST With P-5'-P [Catalytic activity/Vol] 15 U/L 9 - 39 YI-RKZY-Exwqr goldie 201 Work Phone: Bilirubin [Mass/Vol] 0.3 mg/dL 0.0 - 1.2 MP-W [facility] goldie 201 Work Phone: Calcium [Mass/Vol] 8.7 mg/dL 8.6 - 10.3 -[facility] C-[facility] 201 Work Phone: Chloride [Moles/Vol] 105 mmol/L 98 - 107 -[facility] Work Phone: CO2 [Moles/Vol] 26 mmol/L 21 - 32 [facility] Work Phone: Creatinine [Mass/Vol] 0.79 mg/dL See Below - [facility] Work Phone: Comment on above: Reference Range: 0.5 0 - 1.05 Glucose [Mass/Vol] 85 mg/dL 74 - 99 -[facility] 201 Work Phone: Potassium [Moles/Vol] 3.7 mmol/L 3.5 - 5.3 - [facility] 201 Work Phone: Protein [Mass/Vol] 7.3 g/dL 6.4 - 8.2 -[facility] 201 Work Phone: Sodium [Moles/Vol] 138 mmol/L 136 - 145 [facility] 201 Work Phone: Thyroglobulin [Mass/Vol] Not Applicable 1.3-31.8 EP-VRMO-Dmmgh ake 201 Work Phone: Comment on above: INTERPRETIVE INFORMA TION: Thyroglobulin by LC-MS/MS, Serum/PlasmaLower limit of detection for Thyroglobulin by LC-MS/MS is 0.5 ng/mL.This test was developed and its performance characteristics determined by [facility]. It has not been cleared or approved by the US Food and Drug Administration. This test was performed in a CLIA certified laboratory and is intended for clinical purposes.Performed By: [facility] [address] [address]Stubxzvpkn Director: Kaz Oh MD, PhD Thyroglobulin [Mass/Vol] <0.1 below low threshold 1.3-31.8 WY-HUXO-Zcvfd goldie 201 Work Phone: Comment on above: INTERPRETIVE INFORMA TION: Thyroglobulin, Serum or PlasmaSpecimens negative for thyroglobulin antibodies (TgAb) are tested for thyroglobulin (Tg) by chemiluminescent immunoassay (NA) using the Reji Lin Access DxI method. Specimens with TgAb results [...] nitrogen [Mass/Vol] 12 mg/dL 6 - 23 JY-TOYK-Ydthr goldie 201 Work Phone: Laboratory - Serology - non- microon 05-24-2022 Thyroglobulin Ab Qn [IU]/mL 0.0-4.0 MP-WS PC-Westl goldie 201 Work Phone: Comment on above: INTERPRETIVE INFORMA TION: Thyroglobulin Antibody A value of 4.0 IU/mL or less indicates a negative result for thyroglobulin antibodies.The Thyroglobulin Antibody assay is being performed using the Reji Lin Access DxI method. No Panel Informationon 05-24 >90 >90 QZ-NGYC-Rrerd goldie 201 Work Phone: Comment on above: CALCULATIONS OF JESSICA MATED GFR ARE PERFORMED USING THE 2020 CKD-EPI STUDY REFIT EQUATION WITHOUT THE RACE VARIABLE FOR THE IDMS-TRACEABLE CREATININE METHODS.https://jasn.asnjournals.org/content// ASN.0375796623 T4 - Free Thyroxine, Serumon 05-24-2022 Free T4 [Mass/Vol] 1.32 ng/dL above high threshold See Below YW-RDQH-Irukk goldie 201 Work Phone: Comment on above: Reference Range: 0.6 1 - 1.12 Thyroxine Free testing is performed using different testing methodology at [facility] than at other [facility]. Direct result comparisons should only be [...] THYROXINE,FREE 1.32 ng/dL High 0.61 - 1.12 [facility] Comment on above: Result Comment: Thyr oxine Free testing is performed using different testing methodology at [facility] than at other [facility]. Direct result comparisons should only be [...] draw. Performed By: #### T 4FRE #### [address] [id number] TSHon 05-24-2022 TSH Qn 0.73 m[IU]/L Normal 0.44 - 3.98 [facility] Comment on above: Result Comment: TSH testing is performed using different testing methodology at [facility] than at other [facility]. Direct result comparisons should only be made within the same method. Performed By: #### T SH2 #### [address] [id number] TSH - Thyroid Stimulating Ho rmone, Serumon 05-24-2022 TSH Qn 0.73 m[IU]/L See Below LG-EFFA-Uyyd l ake 201 Work Phone: Comment on above: Reference Range: 0.4 4 - 3.98 TSH testing is performed using different testing methodology at [facility] than at other [facility]. Direct result comparisons should only be made within the same method. VITAMIN D, 25-HYDROXYon VITAMIN D, 25-HYDROXY 17 ng/mL Abnormal [facility] Comment on above: Result Comment: . DEFICIENCY: < 20 NG/ML INSUFFICIENCY: 20-29 NG/ML SUFFICIENCY: 30-100 NG/ML THIS ASSAY ACCURATELY QUANTIFIES THE SUM OF VITAMIN D3, 25-HYDROXY AND VIT D2,25-HYDROXY. Performed By: #### V TDOH #### [address] [id number] Vitamin D 25-Hydroxyon 05-24 25-hydroxyvitamin D3 [Mass/Vol] 17 ng/mL Abnormal MR-MDFW-Qeorl goldie 201 Work Phone: Comment on above: .DEFICIENCY: < 20 NG /MLINSUFFICIENCY: 20-29 NG/MLSUFFICIENCY: 30-100 NG/MLTHIS ASSAY ACCURATELY QUANTIFIES THE SUM OFVITAMIN D3, 25-HYDROXY AND VIT D2,25-HYDROXY. PAP ACOG PANEL 2: 30 to 65on 03-22-2022 . . Normal [facility] Comment on above: Result Comment: Perf ormed at: WB Performed By: #### 4 [id number] #### [facility] [address] [address] [address] Nina Vickers Age Gdln ACOG Testing 30-65 Normal [facility] Comment on above: Performed By: #### 4 [id number] #### [facility] [address] [address] [address] Nina Vickers DIAGNOSIS: Comment Normal [facility] Comment on above: Result Comment: NEGA TIVE FOR INTRAEPITHELIAL LESION OR MALIGNANCY. Performed at: WB Performed By: #### 4 [id number] #### [facility] [address] [address] [address] Nina Vickers HPV Aptima Negative Normal Negative [facility] Comment on above: Result Comment: This nucleic acid amplification test detects fourteen high-risk HPV types (16,18,31,33,35,39,45,51,52,56,58,59,66,68) without differentiation. Performed at: =G Performed By: #### 4 [id number] #### [facility] [address] [address] [address] Nina Vickers HPV Genotype Reflex Comment Normal [facility] Comment on above: Result Comment: Crit erartur not met, HPV Genotype not performed. Performed at: WB Performed By: #### 4 [id number] #### [facility] [address] [place] [address] Dr. Nina Vickers Methodology: Comment Normal [facility] Comment on above: Result Comment: This liquid based ThinPrep(R) pap test was screened with the use of an image guided system. Performed at: WB Performed By: #### 4 [id number] #### [facility] [address] [place] [address] Dr. Nina Vickers Note: Comment Normal [facility] Comment on above: Result Comment: The Pap smear is a screening test designed to aid in the detection of premalignant and malignant conditions of the uterine cervix. It is not a diagnostic procedure and should not be used as the sole means of detecting cervical cancer. Both false-positive and false-negative reports do occur. . Performed at: WB Performed By: #### 4 [id number] #### [facility] [address] [place] [address] Dr. Nina Vickers Performed by: Comment Normal [facility] Comment on above: Result Comment: Amarilys Treadwell, Drywall Hanger (ASCP) Performed at: WB Performed By: #### 4 [id number] #### [facility] [address] [place] [address] Dr. Nina Vickers Specimen adequacy: Comment Normal [facility] Comment on above: Result Comment: Sati sfactory for evaluation. No endocervical component is identified. Performed at: WB Performed By: #### 4 [id number] #### [facility] [address] [place] [address] Dr. Nina Vickers CBC AUTO DIFFon 03-13-2022 BASO # 0.0 103/ul Normal 0.0-0.1 [facility] Comment on above: Performed By: #### C BC #### [facility] [address] [place] [address] Dr. Nina Vickers Basophils/100 WBC (Bld) 0.3 % Normal 0.2-2.[address] [facility] Comment on above: Performed By: #### C BC #### [facility] [address] [place] [address] Dr. Nina Vickers EO # 0.1 103/ul Normal 0.0-0.7 [facility] Comment on above: Performed By: #### C BC #### [facility] [address] [place] [address] Dr. Nina Vickers Eosinophils/100 WBC (Bld) 0.8 % Critically low 0.9-7.0 [facility] Comment on above: Performed By: #### C BC #### [facility] [address] [place] [address] Dr. Nina Vickers Erythrocyte distribution width (RBC) [Ratio] 12.8 % Normal 11.0-15.0 [facility] Comment on above: Performed By: #### C BC #### [facility] [address] [place] [address] Dr. Nina Vickers Hematocrit (Bld) [Volume fraction] 38.3 % Normal 36.0-48.0 [facility] Comment on above: Performed By: #### C BC #### [facility] [address] [place] [address] Dr. Nina Vickers Hemoglobin (Bld) [Mass/Vol] 13.1 g/dL Normal 12.0-16.0 [facility] Comment on above: Performed By: #### C BC #### [facility] [address] [place] [address] Dr. Nina Vickers IG # 0.01 10e3/ul Normal 0.00-0.03 [facility] Comment on above: Performed By: #### C BC #### [facility] [address] [place] [address] Dr. Nina Vickers IG % 0.2 % Normal 0.0-0.5 [facility] Comment on above: Performed By: #### C BC #### [facility] [address] [place] [address] Dr. Nina Vickers LYMPH # 2.0 103/ul Normal 1.2-3.8 [facility] Comment on above: Performed By: #### C BC #### [facility] [address] [place] [address] Dr. Nina Vickers Lymphocytes/100 WBC (Bld) 33.3 % Normal 20.5-60.0 [facility] Comment on above: Performed By: #### C BC #### [facility] [address] [place] [address] Dr. Nina Vickers MANUAL DIFF REQ NO Normal [facility] Comment on above: Performed By: #### C BC #### [facility] [address] [place] [address] Dr. Nina Vickers MCH (RBC) [Entitic mass] 29.5 pg Normal 26.7-34.0 [facility] Comment on above: Performed By: #### C BC #### [facility] [address] [place] [address] Dr. Nina Vickers MCHC (RBC) [Mass/Vol] 34.2 g/dL Normal 29.9-35.2 [facility] Comment on above: Performed By: #### C BC #### [facility] [address] [place] [address] Dr. Nina Vickers MCV (RBC) [Entitic vol] 86.3 fL Normal 81.0-99.[address] [facility] Comment on above: Performed By: #### C BC #### [facility] [address] [place] [address] Dr. Nina Vickers MONO # 0.5 103/ul Normal 0.3-0.8 [facility] Comment on above: Performed By: #### C BC #### [facility] [address] [place] [address] Dr. Nina Vickers Monocytes/100 WBC (Bld) 7.5 % Normal 1.7-12.[address] [facility] Comment on above: Performed By: #### C BC #### [facility] [address] [place] [address] Dr. Nina Vickers NEUT # 3.5 103/ul Normal 1.4-6.5 [facility] Comment on above: Performed By: #### C BC #### [facility] [address] [address] [address] Nina Vickers Neutrophils/100 WBC (Bld) 57.9 % Normal 43.0-75.0 [facility] Comment on above: Performed By: #### C BC #### [facility] [address] [address] [address] Nina Vickers Platelet mean volume (Bld) [Entitic vol] 9.2 fL Critically low 9.5-13.5 [facility] Comment on above: Performed By: #### C BC #### [facility] [address] [address] [address] Nina Vickers PLT 335 103/ul Normal 150-450 [facility] Comment on above: Performed By: #### C BC #### [facility] [address] [address] [address] Nina Vickers RBC 4.44 106/ul Normal 4.20-5.40 [facility] Comment on above: Performed By: #### C BC #### [facility] [address] [address] [address] Nina Vickers WBC 6.1 103/ul Normal 4.0-11.0 [facility] Comment on above: Performed By: #### C BC #### [facility] [address] [address] [address] Nina Vickers FREE T3on 03-13-2022 FREE T3 2.25 pg/mlL Normal 2.18-3.98 [facility] Comment on above: Performed By: #### T SH, FT3 #### [facility] [address] [address] [address] iNna Vickers FREE T4on 03-13-2022 Free T4 [Mass/Vol] 1.46 ng/dL Normal 0.76-1.46 [facility] Comment on above: Performed By: #### F T4 #### [facility] [address] [address] [address] Nina Vickers GLYCOHEMOGLOBIN A1Con 2021 ADA RECOMMENDATION SEE BELOW Normal [facility] Comment on above: Result Comment: ADA RECOMMENDED LIMIT 4.0 - 6.0 ADA THERAPEUTIC TARGET < 7.0 ACTION SUGGESTED > 7.0 Performed By: #### A 1C #### [facility] [address] [place] [address] Dr. Nina Vickers Glucose [Mass/Vol] 120 mg/dL Normal [facility] Comment on above: Performed By: #### A 1C #### [facility] [address] [place] [address] Dr. Nina Vickers HbA1c (Bld) [Mass fraction] 5.8 % Normal 4.5-6.2 [facility] Comment on above: Performed By: #### A 1C #### [facility] [address] [place] [address] Dr. Nina Vickers TSHon 03-13-2022 TSH 0.990 uIU/mL Normal 0.358-3.740 [facility] Comment on above: Performed By: #### T SH, FT3 #### [facility] [address] [place] [address] Dr. Nina Vickers Vital Signs Date Time Vital Sign Value Performing Clinician Mame ortiz 03-25-2024 13:14-0500 Body height 157.5 cm Vandana LONDONO Work Phone: [facility] 03-25-2024 13:14-0500 Body mass index (BMI) [Ratio] 26.16 kg/m2 Vandana LONDONO Work Phone: [facility] 03-25-2024 13:14-050 Body weight 64.86 kg Vandana LONDONO Work Phone: [facility] 03-25-2024 13:14-0500 Diastolic blood pressure 68 mm[Hg] Vandana LONDONO Work Phone: [facility] 03-25-2024 13:14-0500 Systolic blood pressure 120 mm[Hg] Vandana LONDONO Work Phone: [facility] 11-23-2022 12:55-0400 Body height 157.48 cm No PCP None MQ-MGGE-Anzqsxdy 200 Work Phone: 11-23-2022 12:55-0400 Body mass index (BMI) [Ratio] 25.79 kg/m2 No PCP None QP-FMPL-Savilbqe 200 Work Phone: 11-23-2022 12:55-0400 Body surface area Derived from formula 1.65 m2 No PCP None YT-NKHU-Lrrjxnwg 200 Work Phone: 11-23-2022 12:55-0400 Body weight 63.96 kg No PCP None JH-FWQY-Kjclaaof 200 Work Phone: 11-23-2022 12:55-0400 Diastolic blood pressure 64 mm[Hg] No PCP None IM-PDCX-Liiwjkyj 200 Work Phone: 11-23-2022 12:55-0400 Systolic blood pressure 112 mm[Hg] No PCP None ZU-ONGH-Gdqsfwwx 200 Work Phone: 05-24-2022 13:37-0500 Body height 157.48 cm No PCP None HR-NIWT-Xmfijqiz 200 Work Phone: 05-24-2022 13:37-0500 Body mass index (BMI) [Ratio] 28.17 kg/m2 No PCP None RQ-ENVK-Agvbfvuz 200 Work Phone: 05-24-2022 13:37-0500 Body surface area Derived from formula 1.71 m2 No PCP None IG-QQJZ-Lsbchndb 200 Work Phone: 05-24-2022 13:37-0500 Body weight 69.85 kg No PCP None ZD-EYFF-Edpetoiz 200 Work Phone: 05-24-2022 13:37-0500 Diastolic blood pressure 74 mm[Hg] No PCP None NL-RHIE-Ptmgmhhh 200 Work Phone: 05-24-2022 13:37-0500 Systolic blood pressure 118 mm[Hg] No PCP None WM-FCDG-Koqsekes 200 Work Phone: Encounters Encounter Date Encounter Type Care Provider Facility Start: 03-25-2024 End: 03-25-2024 Bamboo flowsheet Vandana LONDONO Work Phone: [facility] Start: 03-25-2024 End: 03-25-2024 Bamboo flowsheet Vandana LONDONO Work Phone: [facility] Start: 03-25-2024 End: 03-25-2024 Patient encounter procedure Vandana LONDONO Work Phone: [facility] Work Phone: Start: 03-25-2024 End: 03-25-2024 Periodic preventive med est patient 40-64yrs Vandana LONDONO Work Phone: [facility] Comment on above: Well woman exam with routine gynecological exam; Frequent UTI; Urinary incontinence, unspecified type; Request for sterilization; control counseling Start: 11-29-2023 End: 11-29-2023 ambulatory [facility] Start: 03-22-2023 End: 03-22-2023 ambulatory EDITH GRIFFITHS Not Available Start: 11-30-2022 Chart Update No PCP None MP-WSPC-We stlake 200 Work Phone: Start: 11-28-2022 End: 11-29-2022 ambulatory [facility] TO [facility] Facility:[facility] Start: 11-23-2022 Office outpatient vi sit 25 minutes No PCP None KV-PLUF-Yeswitot 200 Work Phone: Start: 11-23-[address] Dori Finn Fackit lity:[id number] Start: 06-13-2022 End: 06-13-2022 ambulatory [facility] Facility:[facility] Start: 05-29-2022 Chart Update No PCP None MP-WSPC-We stlake 201 Work Phone: Start: 05-24-2022 AUDIT No PCP None MP-WSPC-We stlake 201 Work Phone: Start: 05-24-2022 Office outpatient vi sit 25 minutes No PCP None CW-CLRS-Fqrlnrwx 200 Work Phone: Start: 05-24-[address] Deepak Rice Facility:[id number] Start: 03-13-2022 End: 03-13-[address] EDITH GRIFFITHS Facility:[facility] Start: 03-13-2022 End: 03-14-[address] EDITH GRIFFITHS Facility:[facility] Procedures Date Procedure Procedure Detail Performing Clinician Start: 03-25-2024 Urnls dip stick/tabl et rgnt non-auto w/o micrscp Vandana LONDONO Work Phone: Start: 03-22-2023 Microscopic observat ion [Identifier] in Cervix by Cyto stain Vandana LONDONO Work Phone: Start: 03-22-2023 Cytp cerv/vag auto t hin layer prep mnl screen Edith Griffiths DO Work Phone: Start: 03-13-2022 Mammography Vandana LONDONO Work Phone: Plan of Treatment Date Care Activity Detail Author Start: 03-22-2028 Screening for malignant neoplasm of cervix [facility] Start: 03-30-2025 End: 03-30-2025 Patient encounter procedure 03/30/2025 2:00 PM EST Office Visit [facility] [address] [facility] [place] [id number] Edith Griffiths DO [address] [place] [address] [facility] Start: 05-21-2024 End: 05-21-2024 Patient encounter procedure 05/21/2024 1:20 PM EST Consult [facility] [address] [place] [address] Edith Griffiths DO [address] [place] [address] [facility] Start: 03-25-2024 End: 03-25-2024 Patient encounter procedure 03/25/2024 1:00 PM EST Office Visit [facility] [address] [place] [address] Vandana Shay PA [address] [facility] [place] [address] Arrived [facility] Comment on above: Arrived Start: 11-29-2023 FUV, Provider: Dori Finn, Status: Pen, Time: 11:00 AM FUV, Provider: Dori Finn, Status: Pen, Time: 11:00 AM MT-VYXZ-Jbfwbnoy 200 Work Phone: Start: 05-30-2023 FUV, Provider: Dori Finn, Status: Pen, Time: 11:00 AM FUV, Provider: Alexandria Finnet, Status: Pen, Time: 11:00 AM VH-ZXRP-Jzoeaagt 200 Work Phone: Start: 03-13-2023 Screening for malignant neoplasm of breast Mammogram [facility] Start: 11-23-2022 FUV, Provider: Dori Finn, Status: Pen, Time: 1:00 PM FUV, Provider: Dori Finn, Status: Pen, Time: 1:00 PM RS-IMAT-Ezuwerph 201 Work Phone: Start: 11-23-2022 FUV, Provider: Nunu Hurley, Status: Pen, Time: 1:00 PM FUV, Provider: Nunu Hurley, Status: Pen, Time: 1:00 PM XY-PRCQ-Zpmwnnnz 200 Work Phone: Start: 1975 Screening for malignant neoplasm of colon [facility] THIN PREP TIS PAP AN D HR HPV DNA THIN PREP TIS PAP AND HR HPV DNA Pathology and Cytology Routine Well woman exam with routine gynecological exam Ordered: 03/25/2024 [facility] Work Phone: Comment on above: Ordered: 03/25/2024 Immunizations Immunization Date Immunization Notes Care Provider Fa cility 01-08-2022 Seasonal, quadrivale nt, recombinant, injectable influenza vaccine, preservative free No PCP None DT-KSVP-Somsjaur 200 Work Phone: 03-27-2021 Moderna COVID-19 Vac cine 100 MCG/0.5ML Intramuscular Suspension No PCP None OD-BKOX-Byxrzgn e 200 Work Phone: 01-09-2021 Seasonal, quadrivale nt, recombinant, injectable influenza vaccine, preservative free No PCP None SQ-KENG-Mlokvyun 200 Work Phone: 07-31-2020 Moderna COVID-19 Vac cine 100 MCG/0.5ML Intramuscular Suspension No PCP None DY-NTFK-Gslxtau e 200 Work Phone: 06-30-2020 Moderna COVID-19 Vac cine 100 MCG/0.5ML Intramuscular Suspension No PCP None HT-LDIT-Qjtujao e 200 Work Phone: 04-01-2020 tetanus toxoid, redu vijaya diphtheria toxoid, and acellular pertussis vaccine, adsorbed No PCP None JR-IYLM-Sunkidjr 200 Work Phone: 12-23-2019 Seasonal, quadrivale nt, recombinant, injectable influenza vaccine, preservative free No PCP None FJ-LDZP-Zjjnvcnb 200 Work Phone: 03-01-2019 hepatitis A and hepa titis B vaccine No PCP None ZO-HAEP-Qgjvhzst 200 Work Phone: 12-08-2018 Seasonal, quadrivale nt, recombinant, injectable influenza vaccine, preservative free No PCP None ZN-RAVW-Szkhntbe 200 Work Phone: 11-10-2018 hepatitis A and hepa titis B vaccine No PCP None FV-DPXK-Pqlbxnev 200 Work Phone: 08-03-2018 hepatitis A and hepa titis B vaccine No PCP None GU-MGYV-Bkxelmgg 200 Work Phone: 01-10-2018 influenza, injectabl e, quadrivalent, preservative free No PCP None JS-WWTP-Msjefczh 200 Work Phone: 11-28-2016 influenza, seasonal, injectable, preservative free No PCP None CY-ZKNX-Algnsdrm 200 Work Phone: 12-10-2015 influenza, injectabl e, quadrivalent, preservative free No PCP None VN-IEYK-Sezetuxv 200 Work Phone: 08-26-2015 measles, mumps and r ubella virus vaccine No PCP None VX-SIOO-Afevtvmk 200 Work Phone: 01-07-2015 influenza, seasonal, injectable No PCP None SI-LLNY-Jhraxcpn 200 Work Phone: Payers Date Payer Category Payer Managed Care O (unspecified) [employer] [id number] 1975 Unknown [id number] 1974 Unknown [id number] 1974 Unknown [id number] 1974 Unknown [id number] 1974 Unknown [id number] 1974 Unknown [id number] 1974 Unknown [id number] 1974 Unknown [id number] 1974 Unknown [id number] 1960 Private Health Insurance [id number] Unknown [employer] Social History Date Type Detail Facility Start: 03-10-2023 End: 03-25-2024 Former smoker Former smoker TQ-ZLEW-Mdbmrpzc 200 Work Phone: Start: 03-10-2023 Tobacco smoking status [facility] Ex-smoker [facility] Start: 04-23-2011 History of tobacco use Current smoker [facility] Start: 04-23-2011 History of tobacco use Cigarette Smoker [facility] Start: 03-22-2023 End: 03-25-2024 Alcoholic beverage intake Current drinker of alcohol (finding) [facility] Start: 03-10-2023 End: 03-25-2024 Alcohol Use Disorder Identification Test - Consumption [AUDIT-C] [facility] How often to you hav e a drink containing alcohol? Monthly or less [facility] How many standard dr inks containing alcohol do you have on a typical day? 3 or 4 [facility] How often do you hav e 6 or more drinks on 1 occasion? Never [facility] Start: 03-10-2023 Alcohol Comment caffeine: 2-3 cups per day [facility] Start: 1975 Sex assigned at Not on file [facility] Start: 07-05-2022 Gender identity Identifies as female gender (finding) [facility] History of Present illness Narrative 03-25-2024 [facility] [place] - 03/25/2024 1:00 PM EST Note Date & Type Note Facility 03-25-2024 History of Presen t illness Narrative Reason for Appointment: Patient ID: Sushma Chaparro is a 48 y.o. female who presents for Well Women Visit Patient presents today for Annual Exam. MEDICATIONS Current Outpatient Medications Medication Instructions citalopram (CELEXA) 20 mg, Daily levothyroxine (SYNTHROID, LEVOXYL) 125 mcg, Daily lisinopril 5 mg, Daily metFORMIN XR (GLUCOPHAGE-XR) 500 mg, Oral, Daily with evening meal, Do not crush, chew, or split. ALLERGIES Allergies Allergen Reactions Amoxicillin Hives PROBLEMS Active Ambulatory Problems Diagnosis Date Noted No Active Ambulatory Problems Resolved Ambulatory Problems Diagnosis Date Noted No Resolved Ambulatory Problems Past Medical History: Diagnosis Date Anemia of Asthma (CMS/HCC) History of hypertension History of thyroid nodule HTN (hypertension) (CMS/HCC) PPD positive HISTORY PAST MEDICAL HISTORY SOCIAL HISTORY Past Medical History: Diagnosis Date Anemia of Asthma (CMS/HCC) History of hypertension History of thyroid nodule Bilat Thyroid Nodules, s/p Total Thyroidectomy 04/09 HTN (hypertension) (CMS/HCC) PPD positive Social History Tobacco Use Smoking status: Former Types: Cigarettes Start date: 2011 Smokeless tobacco: Not on file Substance Use Topics Alcohol use: Yes Comment: caffeine: 2-3 cups per day Drug use: Never FAMILY HISTORY Family History Problem Relation Name Age of Onset Hypertension Mother Hypertension Father Hypertension Maternal Grandfather Diabetes Maternal Grandfather Cancer Maternal Grandfather Testicular Other (Low Thyroid) Paternal Grandmother Diabetes Paternal Grandfather Heart disease Paternal Grandfather Hypertension Other multiple family members Melanoma Neg Hx SURGICAL HISTORY Past Surgical History: Procedure Laterality Date TOTAL THYROIDECTOMY 04/02/2018 Biopsy Delphian Lymph Node REVIEW OF SYSTEMS Review of Systems: Review of Systems Constitutional: Negative. HENT: Negative. Eyes: Negative. Respiratory: Negative. Cardiovascular: Negative. Gastrointestinal: Negative. Genitourinary: Negative. Musculoskeletal: Negative. Skin: Negative. Neurological: Negative. All other systems reviewed and are negative. Hematological: Negative. Endocrine: Negative. Allergic/Immunologic: Negative. OBJECTIVE Objective: Physical Exam Constitutional: Appearance: Normal appearance. She is well-developed. Genitourinary: Vulva normal. Right Adnexa: not tender and no mass present. Left Adnexa: not tender and no mass present. No cervical discharge. Breasts: Breasts are soft. Right: Normal. Left: Normal. HENT: Head: Normocephalic. Nose: Nose normal. Mouth/Throat: Mouth: Mucous membranes are moist. Cardiovascular: Rate and Rhythm: Normal rate and regular rhythm. Pulmonary: Effort: Pulmonary effort is normal. Breath sounds: Normal breath sounds. Abdominal: General: Bowel sounds are normal. There is no distension. Palpations: Abdomen is soft. Tenderness: There is no abdominal tenderness. There is no guarding or rebound. Musculoskeletal: General: No swelling. Normal range of motion. Cervical back: Normal range of motion. Right lower leg: No edema. Left lower leg: No edema. Neurological: General: No focal deficit present. Mental Status: She is alert and oriented to person, place, and time. Skin: General: Skin is warm and dry. Psychiatric: Mood and Affect: Mood normal. Behavior: Behavior normal. Vitals and nursing note reviewed. Exam conducted with a male impersonator present. Vitals: Estimated body mass index is 26.16 kg/m as calculated from the following: Height as of this encounter: 5' 2 . Weight as of this encounter: 143 lb. BP: 120/68 Patient's last menstrual period was 03/15/2024. ASSESSMENT & PLAN ICD-10-CM 1. Well woman exam with routine gynecological exam Z01.419 THIN PREP TIS PAP AND HR HPV DNA 2. Frequent UTI N39.0 POCT urinalysis dipstick manually resulted 3. Urinary incontinence, unspecified type R32 Annual: Patient presents today for an annual exam. Patient states she is doing well and has complaints or urinary leakage with running. Discussed possible urology referral with patient. Discussed control options with patient and patient would like refills on Slynd & would like to setup surgery to have Bilateral Salpingectomy. Pap was obtained without difficulty and patient given mammogram order to have scheduled/obtained. Patient desires to have referral to Urology for Urinary Leakage. Orders Placed This Encounter Procedures POCT urinalysis dipstick manually resulted Follow Up: Patient is to return in one year for annual unless needed otherwise. Documented by uKsum Andrade LPN on behalf of: [facility] documented in this encounter [facility] Clinical Note 06-13-2022 Note Date & Type [...] Follow these instructions at home: ? Take ptfo-wyv-ecnnion and prescription medicines only as told by [...] provider. Document Revised: 07/18/2021 Document Reviewed: 07/18/2021 [employer] Patient Education ? 2021 [employer] Infectious Disease Sinusitis, Adult Sinusitis is [...] virus. Sinusitis c (more content not included)... [facility] Evaluation note Note Date & Type Note Facility Evaluation note Diagnosis Well woman exam with routine gynecological exam Routine gynecological examination Frequent UTI Urinary tract infection, site not specified Urinary incontinence, unspecified type Request for sterilization control counseling documented in this encounter [facility] History of Present illness Narrative Note Date [...] on palpationExtremities:No asymmetry or muscle atrophyno tremorsDTR [facility] 200 Work Phone: History of Present illness [...] on palpationExtremities:No asymmetry or muscle atrophyno tremorsDTR [employer] 201 Work Phone: History of Present illness Narrative Note Date & Type Note Facility History of Present illness Narrative please see HPI details in PIROS- feels well overall.no tremorsno [id number] point ROS negative except as mentioned.PE :General:Well-developed, [...] on palpationExtremities:No asymmetry or muscle atrophyno tremorsDTR nml HM-YUTV-Nrpgcgde 200 Work Phone: Summary Purpose Family History Unknown Family Member Name Dates Details Family [...] Dr. Rice * total thyroid removed 2018 [facility]; but no treatment * Endo: Dr. 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 Patient here with Mother, Belinda * PCP: Dr. Rice * total thyroid removed 2018 [facility]; but no treatment * Endo: Dr. 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 Patient here with Mother, Belinda * PCP: Dr. Rice * total thyroid removed 2018 [facility] carcinoma; but no treatment * levothyroxine 125mcg qd; takes thyroid medication correctly Additional Source Comments INFORMATION SOURCE (unrecogn ized section and content) DATE CREATED AUTHOR 03/22/2022 [facility] DATE CREATED AUTHOR AUTHOR'S ORGANIZ ATION 11/24/2022 [facility] DATE CREATED AUTHOR AUTHOR'S ORGANIZ ATION 12/01/2022 [employer] DATE CREATED AUTHOR AUTHOR'S ORGANIZ ATION 12/06/2022 [facility] DATE CREATED AUTHOR AUTHOR'S ORGANIZ ATION 03/24/2023 [facility] EPIC DATE CREATED AUTHOR AUTHOR'S ORGANIZ ATION 12/01/2023 [facility] DATE CREATED AUTHOR AUTHOR'S ORGANIZ ATION 12/04/2023 [facility] Care Teams (unrecognized sec tion and content) Manufacturing Development Engineer Relationship Specialty Start Date End Date Deepak Rice MD [address] [place] [id number] PCP - General Family Medicine 03/22/23 Manufacturing Development Engineer Relationship Specialty Start Date End Date Deepak Rice MD [address] [place] [address] PCP - General Family Medicine 03/22/23 Reason for Visit (unrecogniz ed section and content) Reason Comments Well Women Visit FOR RECORDS PERTAINING TO PATIENTS WHO ARE [...] BE BASED ON THE PRIMARY CLINICAL RECORDS. [employer] [facility]. provides no warranty or guarantee of the accuracy or completeness of information in this document.
[2024-03-31 23:06] LABS: Age Gdln ACOG Testing Note (.); HPV Aptima Negative (Negative); IGP, Aptima HPV, rfx 16/18,45 Note (.)
== END 2024-03-25 20:07 | disposition home or self-care (01) ==
LOC: LAB 20:06
PROVIDERS: Visit Provider Physician Assistant
DX: Z01.419 Encounter for gynecological examination (general) (routine) without abnormal findings (principal)
CPT/HCPCS: 87624; 88175

== ENCOUNTER 2024-10-21 13:59 | Outpatient (REF) | payer OTHER, SELFPAY ==
--- OUTSIDE RECORDS SUMMARY | 2023-11-19 06:40 | XMS_ITS ---
Author Organization [facility] in [place] Address [address] [place] [address] Care Team Providers Care Program Director/Traffic Director Name Role Phone Carly Rice Primary Care Provider REASON FOR VISIT med refill Medications Medication SIG (Take, Route, Frequency, Duration) Notes Start Date End Date Status Citalopram Hydrobromide 20 MG Take 1 tablet by mouth once daily for 90 Active Lisinopril 5 MG Take 1 tablet by mel th once daily Orally Once a day for 90 days Active Encounters Encounter Location Date Provider Diagnosis [address] [id number] 11/19/2023 Carly Rice Plan Of Treatment Medication Medication Name Sig Start Date Stop Date Notes Citalopram Hydrobromide 20 MG Take 1 tab let by mouth once daily for 90 Lisinopril 5 MG Take 1 tablet by mel th once daily Orally Once a day for 90 days Progress Notes * Nicole LEWIS RDOB: [birth year] (47 yo F)Acc No.[id number]:11/19/2023 Patient: Monica Nicole APPIAH :1975 A ge:47 Y S ex:Female Address:[address] [place] [id number] * Refills Refill Lisinopril Tablet, 5 MG, Orally, 90, Take 1 tablet by mouth once daily, Once a day, 90 days, Refills=0 Refill Citalopram Hydrobromide Tablet, 20 MG, 90 Tablet, Take 1 tablet by mouth once daily, 90, Refills=0 * true * Date: Generated for Alicia adame/Bryson/Jose on: 0 10/30/2024 02:02 PM EDT
--- OUTSIDE RECORDS SUMMARY | 2024-06-19 10:00 | XMS_ITS ---
Author Organization [facility] [place] Address [address] [place] [address] Care Team Providers Care Medical Doctor Name Role Phone Carly Rice Primary Care Provider REASON FOR VISIT -6 Month Follow Up- Encounters Encounter Location Date Provider Diagnosis [address] [place] [address] 06/19/2024 Carly Rice Plan Of Treatment No Information Progress Notes * Nicole LEWIS RDOB: 5 (48 yo F)Acc No.[id number]:06/19/2024 UNLOCKED PROGRESS NOTE Established Patient: Al GRUBERartur Boudreaux Provider: Yang Rice MD :1975 A ge:48 Y S ex:Female Date:06/19/2024 Address:[address] [place], [place] [id number] Subjective: * Chief Complaints: * 1 . -6 Month Follow Up-. * Medical History: Objective: * Vitals: Assessment: Plan: * Treatment: * * Electronic signature of Aisha Rice MD, [id number] on 10/30/2024 at 02:02 PM EDT Sign off status: Pending Visit Status: C ANC (Cancelled) * Provider: Yang Rice MD Date: 0 06/19/2024 Generated for Printi ng/Faxing/eTransmitting on: 0 10/30/2024 02:02 PM EDT
--- OUTSIDE RECORDS SUMMARY | 2024-10-21 13:50 | XMS_ITS | Encounter Summary ---
Author Organization [facility] Address [address] [place] [address] Care Team Providers Care Energy Professional Name Role Phone Carly Rice MD Primary Care Provider + [phone] Reason for Visit * Reason Comments Contraception Pt present today for a Mirena string check. Mirena was inserted on 09/22/2024. Encounter Details Date Type Department Care Team (Late st Contact Info) Description 10/21/2024 1:50 PM EDT Office Visit [facility] [address] [place] [address] Wilman Griffiths, DO [address] [facility] [address] [place], [id number] Intrauterine device surveillance; Cervical polyp Social History Tobacco Use Types Packs/Day Years Used Date Smoking Tobacco: Former Cigarettes S tarted: 2011 Alcohol Use Standard Drinks/Week Comments Yes 0 (1 standard drink = 0.6 oz pur e alcohol) caffeine: 2-3 cups per day AUDIT-C Answer Date Recorded Q1: How often do you have a drink containing alc ohol? Monthly or less 03/10/2023 Q2: How many drinks containi ng alcohol do you have on a typical day when you are drinking? 3 or 4 03/10/2023 Q3: How often do you have si x or more drinks on one occasion? Never 03/10/2023 Comments No Sex and Gender Information Value Date Recorded Sex Assigned at Not on file Legal Sex Female 6:55 PM EDT Gender Identity Female 07/05/2022 6:55 PM EDT Sexual Orientation Not on file documented as of this encounter Last Filed Vital Signs Vital Sign Reading Time Taken Comments Blood Pressure 124/78 10/21/2024 1:54 PM EDT Pulse - - Temperature - - Respiratory Rate - - Oxygen Saturation - - Inhaled Oxygen Concentration - - Weight 65.3 kg (144 lb) 10/21/2024 1:54 PM EDT Height - - Body Mass Index 26.34 03/25/2024 1:14 PM EST documented in this encounter Progress Notes * Kusum Andrade LPN - 10/21/2024 1:50 PM EDT Reason for Appointment: Patient ID: Nicole Chaparro is a 48 y.o. female who presents for Contraception (Pt present today fora Mirena string check. Mirena was inserted on 09/22/2024.) Patient presents today for String Check Follow Up appointment. MEDICATIONS Current Outpatient Medications Medication Instructions citalopram (CELEXA) 20 mg, Daily Drospirenone (Slynd) 4 MG tablet 1 tablet, Oral, Daily levothyroxine (SYNTHROID, LEVOXYL) 125 mcg, Daily lisinopril 5 mg, Daily metFORMIN XR (GLUCOPHAGE-XR) 500 mg, Oral, Daily with evening meal, Do not crush, chew, or split. ALLERGIES Allergies Allergen Reactions Amoxicillin Hives Other Reaction(s): Not available Penicillin G Other Reaction(s): Unknown Penicillins Hives Other Reaction(s): Unknown PROBLEMS Active Ambulatory Problems Diagnosis Date Noted Request for sterilization 03/25/2024 Frequent UTI 03/25/2024 Well woman exam with routine gynecological exam 03/25/2024 Urinary incontinence 03/25/2024 Resolved Ambulatory Problems Diagnosis Date Noted No Resolved Ambulatory Problems Past Medical History: Diagnosis Date Anemia of (HHS-HCC) Asthma (HCC) Autoimmune thyroiditis History of hypertension History of thyroid nodule HTN (hypertension) Postprocedural hypothyroidism PPD positive HISTORY PAST MEDICAL HISTORY SOCIAL HISTORY Past Medical History: Diagnosis Date Anemia of (HHS-HCC) Asthma (HCC) Autoimmune thyroiditis History of hypertension History of thyroid nodule Bilat Thyroid Nodules, s/p Total Thyroidectomy 04/09 HTN (hypertension) Postprocedural hypothyroidism PPD positive Social History Tobacco Use Smoking status: Former Types: Cigarettes Start date: 2011 Smokeless tobacco: Not on file Substance Use Topics Alcohol use: Yes Comment: caffeine: 2-3 cups per day Drug use: Never FAMILY HISTORY Family History Problem Relation Name Age of Onset Hypertension Mother Hypertension Father Hyperlipidemia Brother Hypertension Brother Gout Brother Hypertension Maternal Grandfather Diabetes Maternal Grandfather Cancer [...] appearance. She is well-developed. Genitourinary: Vulva normal. Genitourinary Comments: Cervical polyp removed. Cervical polyp present. Cardiovascular: Rate and Rhythm: Normal rate and regular rhythm. Pulmonary: Effort: Pulmonary effort is normal. Breath sounds: Normal breath sounds. Abdominal: General: Bowel sounds are normal. There is no distension. Palpations: Abdomen is soft. Tenderness: There is no abdominal tenderness. There is no guarding or rebound. Musculoskeletal: General: No swelling. Normal range of motion. Right lower leg: No edema. Left lower leg: No edema. Neurological: Mental Status: She is alert and oriented to person, place, and time. Skin: General: Skin is warm and dry. Psychiatric: Mood and Affect: Mood normal. Behavior: Behavior normal. Vitals and nursing note reviewed. Exam conducted with a industrial order clerk present. Vitals: Estimated body mass index is 26.34 kg/m?? as calculated from the following: Height as of 03/25/24: 5' 2 . Weight as of this encounter: 144 lb. BP: 124/78 No LMP recorded (lmp unknown). (Menstrual status: IUD). ASSESSMENT & PLAN ICD-10-CM 1. Intrauterine device surveillance Z30.431 IUD String Check: Patient is doing well but has some complaints of bleeding and cramping following IUD placement. Patient presents today for IUD string check. Strings were visualized and are noted to be intact. Upon checking IUD strings, patient had a cervical polyp that was visualized and patient gave verbal consent for polyp to be removed and sent out to pathology. Patient to ensure she is scheduled for annual appointment and as needed if she has any issues. Follow Up: Patient is to return to the office for annual exam unless needed otherwise. Documented by Kusum Andrade LPN on behalf of: Wilman Griffiths DO documented in this encounter Plan of Treatment Upcoming Encounters Date Type Department Care Team (Late st Contact Info) Description 03/30/2025 2:00 PM EST Office Visit [facility] [address] [place] [address] Wilman Griffiths DO [address] [facility] [place] [address] documented as of this encounter Visit Diagnoses Diagnosis Intrauterine device surveillance Cervical polyp Mucous polyp of cervix documented in this encounter Care Teams Energy Professional Relationship Specialty Start Date End Date Carly Rice MD [address] [place] [address] PCP - General Family Medicine 03/22/23 documented as of this encounter
--- OUTSIDE RECORDS SUMMARY | 2024-10-30 14:02 | XMS_ITS | Clinical Summary ---
Author Organization [facility] Address [address] [place] [address] Care Team Providers Care Title Insurance Sales Representative Name Role Phone Carly Rice MD Primary Care Provider + [phone] Allergies Active Allergy Reactions Criticality Noted Date Comments Amoxicillin Hives 03/25/2024 Other Reaction(s): Not available Penicillin G 05/14/2024 Other Reaction(s): Unknown Penicillins Hives 11/25/2019 Other Reaction(s): Unknown Medications metFORMIN XR (Glucophage-XR) 500 MG 24 hr tabletIndication s:Encounter for weight management Take 1 tablet (500 mg) by mouth in the evening. Take with meals Do not crush, chew, or split. 30 tablet 11 02/06/2024 5 Active levothyroxine (Synthroid, Levoxyl) 125 MCG tablet Take 125 mcg by mouth Daily Active lisinopril 5 MG tablet Take 5 mg by mouth Daily Active citalopram (CeleXA) 20 MG tablet Take 20 mg by mouth Daily Active Drospirenone (Slynd) 4 MG tabletIndication s: control counseling Take 1 tablet by mouth Daily 28 tablet 08/28/2024 5 Active Active Problems Problem Noted Date Diagnosed Date Request for sterilization 03/25/2024 Frequent UTI 03/25/2024 Well woman exam with routine gynecological exam 03/25/2024 Urinary incontinence 03/25/2024 Encounters Date Type Department Care Team Description 10/21/2024 1:50 PM EDT Office Visit [facility] [address] [facility] [place] [id number] Wilman Griffiths, Intrauterine device surveillance; Cervical polyp 10/21/2024 External Result Encounter [facility] External Department Unsolicited Wilman Griffiths DO 10/21/2024 Bamboo flowsheet [facility] [address] [facility] [place] [address] Wilman Griffiths DO 09/22/2024 11:30 AM EDT Procedure Visit [facility] [address] [place] [address] Wilman Griffiths DO Encounter for insertion of Mirena IUD 08/28/2024 10:40 AM EDT Office Visit [facility] [address] [place] [address] Wilman Griffiths DO Encounter for other general counseling or advice on contraception 08/28/2024 Telephone [facility] OB [address] [place], [place] [address] [place] [address] Wilman Griffiths DO 08/28/2024 Bamboo flowsheet [facility] OB [address] [facility] [place] [address] Wilman Griffiths DO from Last 3 Months Family History Medical History Relation Name Comments Gout Brother Hyperlipidemia Brother Hypertension Brother Hypertension Father Cancer Maternal Grandfather Testicu lar Diabetes Maternal Grandfather Hypertension Maternal Grandfather Hypertension Mother Hypertension Other multiple family members Diabetes Paternal Grandfather Heart disease Paternal Grandfather Low Thyroid Paternal Grandmother Melanoma Neg Hx Relation Name Status Comments Brother Alive Father Alive Maternal Grandfather Mother Alive Other Paternal Grandfather Paternal Grandmother Social History Tobacco Use Types Packs/Day Years [...] PM EDT Sexual Orientation Not on file Last Filed Vital Signs Vital Sign Reading Time Taken Comments Blood Pressure 124/78 10/21/2024 1:54 PM EDT Pulse - - Temperature - - Respiratory Rate - - Oxygen Saturation - - Inhaled Oxygen Concentration - - Weight 65.3 kg (144 lb) 10/21/2024 1:54 PM EDT Height 157.5 cm (5' 2 ) 03/25/2024 1:14 PM EST Body Mass Index 26.34 03/25/2024 1:14 PM EST Plan of Treatment Upcoming Encounters Date Type Department Care Team (Late st Contact Info) Description 03/30/2025 2:00 PM EST Office Visit [facility] OB [address] [facility] [place] [address] Wilman Griffiths DO [address] [facility] [place] [address] Health Maintenance Due Date Last Done Comments CT Colonography 1975 Colonoscopy 1975 Colorectal Cancer Screening 1975 FIT-DNA 1974 FIT 1974 FOBT 1975 Sigmoidoscopy 1975 Mammogram 10/18/2024 10/19/2023, 03/13/2022, 02/22 Influenza Vaccine (#1) 2024 , 01/07/2023, 01/08/2022, Additional history exists Pap Smear 03/25/2027 03/25/2024, 03/22/2023 Cervical Cancer Screening 03/22/2028 HPV/Cotest 03/22/2028 Procedures Procedure Name Priority Date/Time Associated Diagnosis Comments PATHOLOGY REQUEST FOR LAB IVONNE Routine 10/21/2024 12:00 AM EDT POCT , URINE Routine 09/22/2024 12:13 PM EDT Encounter for insertion of Mirena IUD IUD INSERTION Routine 09/22/2024 11:30 AM EDT Encounter for insertion of Mirena IUD PAP SMEAR Routine 03/25/2024 12:00 AM EST MM TOMOSYNTHESIS DIAGNOSTIC BI 10/19/2023 4:02 PM EDT from Last 3 Months or Most Recently Relevant to Health Maintenance Results * PATHOLOGY REQUEST FOR LAB IVONNE (10/21/2024 12:00 AM EDT) PATHOLOGY REQUEST FOR LAB IVONNE 10/30/2024 8:43 AM EDT [facility] Comment:See report. Scanned copy available in EMR. Other Topography unknown / Unknown 10/21/2024 10/22/2024 1:51 PM EDT Wilman Griffiths DO LAB BLOOD ORDERABLES Final Resul t Performing Organization Address City/State/[facility] Co de Phone Number [facility] [address] [place] [address], [facility] [address] [place] [address] * POCT , urine manually resulted (09/22/2024 12:13 PM EDT) Preg Test, Ur Negative Negative Urine 09/22/2024 12:1 3 PM EDT us Wilman Griffiths DO POINT OF CARE TEST ENTER/EDIT OR DERABLES Final Result * IUD INSERTION (09/22/2024 11:30 AM EDT) Narrative Kusum Andrade LPN - 09/22/2024 11:30 AM EDT Kusum Andrade LPN 09/22/2024 1:40 PM IUD Insertion Performed by: Wilman Griffiths DO Authorized by: Wilman Griffiths DO Procedure: IUD insertion Date/Time of Insertion: 09/22/2024 12:55 PM Immediately prior to procedure a time out was called: yes Pelvic exam performed: no Speculum placed in vagina: yes Cervix cleaned and prepped: yes Tenaculum/Allis/Ring Forceps applied to cervix: yes Anesthesia used: no Cervix manually dilated: no IUD inserted without complications: yes OSM: 52 mg Levonorgestrel 20 MCG/DAY Patient tolerated procedure well: yes Inserted with ultrasound guidance: no Transvaginal sono confirmed fundal placement: no Intended removal date: 5 years us Wilman Griffiths DO IN CLINIC/BEDSIDE ORDERABLES Fin al Result * Pap Smear (03/25/2024 12:00 AM EST) Swab Cervical swab / Unknown [facility]de Nurse [facility] LAB CYTOLOGY ORDERABLES Final Result EXTERNAL LAB * MM TOMOSYNTHESIS DIAGNOSTIC BI (10/19/2023 4:02 PM EDT) Anatomical Region Laterality Modality Other 10/19/2023 4:02 PM EDT Narrative 10/19/2023 4:03 [place] [address] Mammography Report Signed Patient: SUSHMA LEWIS MR#: [id number] : 1975 Acct:[id number] Age/Sex: 47 / F ADM Date: 10/19/23 Loc: MAMMO Attending Dr: Wilman Griffiths D.O. Ordering Physician: Wilman Griffiths D.O. Results: Date of Service: 10/19/23 Follow Up: Procedure(s): MM tomosynthesis diagnostic BI Accession Number(s): [id number] cc: Wilman Griffiths D.O.; Physician,Non-Staff MQasim Patient Name: SUSHMA LEWIS MR#: [id number] : 1975 Exam Date: 10/19/2023 Ordering Doctor: DR Wilman Griffiths . RADIOLOGY REPORT PROCEDURE: MM TOMOSYNTHESIS DIAGNOSTIC BI, 10/19/2023, 14:19 US BREAST RT LIMITED, 10/19/2023, 14:52 COMPARISON: US BREAST RT LIMITED, 12/06/2022. MM DIAGNOSTIC MAMMO UNILAT RT, 12/06/2022. INDICATIONS: Screening for malignanat neoplasm Calculator Name NCI Breast Cancer Risk Assessment Tool 5 Year Breast Cancer Risk 1.10% Lifetime Breast Cancer Risk 11.10% Personal Breast Cancer No Personal Ovarian Cancer No Treatments None Family Cancers Grandfather-maternal with prostate cancer at age 61. LOCATION: [facility] BREAST COMPOSITION: There are scattered areas of fibroglandular density. FINDINGS: DIAGNOSTIC CATEGORY 2--BENIGN FINDING. NO CHANGE FROM COMPARISON. Scattered benign-appearing nodules are present. Scattered benign-appearing calcifications are present. Scattered benign-appearing lymph nodes are present. RIGHT BREAST: In the region of the patient's skin tag upper inner quadrant, posterior breast no mammographic abnormality is observed. Ultrasound demonstrates at the 2 o'clock position a 4.2 x 2.4 x 5.3 mm area of hypo echogenicity with anterior hyperechogenicity possibly calcification but no internal blood flow. This lesion appears stable from the prior exam. The differential diagnosis is unchanged and I favor a benign process such as a sebaceous or epidermal inclusion cyst LEFT BREAST: No significant suspicious finding. RECOMMENDATIONS: ROUTINE MAMMOGRAM AND CLINICAL EVALUATION IN 12 MONTHS. PLEASE NOTE: A NORMAL MAMMOGRAM DOES NOT EXCLUDE THE POSSIBILITY OF BREAST CANCER. A CLINICALLY SUSPICIOUS PALPABLE LUMP SHOULD BE BIOPSIED. Dictated by: Gary Smith MD on 10/19/2023 at 16:00 Approved by: Gary Smith MD on 10/19/2023 at 16:02 Dictated By: Gary Smith M.D. Signed By: 10/19/23 1603 DD/ 1602 TD/TT: Cell Attendant: Procedure Note Radiology, Radiologist, - 10/19/2023 [place] [address] Mammography Report Signed Patient: SUSHMA LEWIS RMR#: [id number] : 1975Acct:[id number] Age/Sex: 47 / FADM Date: 10/19/23 Loc: MAMMO Attending Dr: Wilman Griffiths D.O. Ordering Physician: Wilman Griffiths D.O.Results: Date of Service: 10/19/23Follow Up: Procedure(s): MM tomosynthesis diagnostic BI Accession Number(s): [id number] cc: Wilman Griffiths D.O.; Physician,Non-Staff [place] Patient Name: SUSHMA LEWIS MR#: [id number] : 1975 Exam Date: 10/19/2023 Ordering Doctor: DR Wilman Griffiths . RADIOLOGY REPORT PROCEDURE: MM TOMOSYNTHESIS DIAGNOSTIC BI, 10/19/2023, 14:19 US BREAST RT LIMITED, 10/19/2023, 14:52 COMPARISON: US BREAST RT LIMITED, 12/06/2022. MM DIAGNOSTIC MAMMOUNILAT RT, 12/06/2022. INDICATIONS: Screening for malignanat neoplasm Calculator Name NCI Breast Cancer Risk Assessment Tool 5 Year Breast Cancer Risk 1.10% Lifetime Breast Cancer Risk 11.10% Personal Breast Cancer No Personal Ovarian Cancer No Treatments None Family Cancers Grandfather-maternal with prostate cancer at age 61. LOCATION: [facility] BREAST COMPOSITION: There are scattered areas of fibroglandulardensity. FINDINGS: DIAGNOSTIC CATEGORY 2--BENIGN FINDING. NO CHANGE FROM COMPARISON. Scattered benign-appearing nodules are present. Scatteredbenign-appearing calcifications are present. Scattered benign-appearing lymph nodes are present. RIGHT BREAST: In the region of the patient's skin tag upper innerquadrant, posterior breast no mammographic abnormality is observed. Ultrasound demonstrates at the 2 o'clock position a 4.2 x 2.4 x 5.3 mm area of hypo echogenicity with anterior hyperechogenicity possibly calcification but no internal blood flow. This lesion appears stable from the prior exam. The differential diagnosis is unchanged and I favor a benign process such as a sebaceous or epidermal inclusion cyst LEFT BREAST: No significant suspicious finding. RECOMMENDATIONS: ROUTINE MAMMOGRAM AND CLINICAL EVALUATION IN 12 MONTHS. PLEASE NOTE: A NORMAL MAMMOGRAM DOES NOT EXCLUDE THE POSSIBILITY OFBREAST CANCER. A CLINICALLY SUSPICIOUS PALPABLE LUMP SHOULD BE BIOPSIED. Dictated by: Gary Smith MD on 10/19/2023 at 16:00 Approved by: Gary Smith MD on 10/19/2023 at 16:02 Dictated By: Gary Smith M.D. Signed By:10/19/23 1603 DD/ 01 TD/TT: Cell Attendant: Wilman Griffiths DO [facility] Final Result from Last 3 Months or Most Recently Relevant to Health Maintenance Insurance [employer] Care Teams Title Insurance Sales Representative Relationship Specialty Start Date End Date Carly Rice MD [address] [place] [id number] PCP - General Family Medicine 03/22/23
--- OUTSIDE RECORDS SUMMARY | 2024-10-30 14:02 | XMS_ITS | Encounter Summary ---
Author Organization [facility] Address [address] [place] [address] Care Team Providers Care Manager Fire Name Role Phone Carly Rice MD Primary Care Provider + [phone] Encounter Details Date Type Department Care Team (Late Contact Info) Description 10/21/2024 External Result Encounter [facility] External Department Unsolicited Wilman Griffiths DO [address] [place] [address] Social History Tobacco Use Types Packs/Day Years [...] on file documented as of this encounter Plan of Treatment Upcoming Encounters Date Type Department Care Team (Late st Contact Info) Description 03/30/2025 2:00 PM EST Office Visit [facility] [address] [place] [address] Wilman Griffiths DO [address] [place] [address] documented as of this encounter Procedures Procedure Name Priority Date/Time Associated Diagnosis Comments PATHOLOGY REQUEST FOR LAB IVONNE Routine 10/21/2024 12:00 AM EDT documented in this encounter Results * PATHOLOGY REQUEST FOR LAB IVONNE (10/21/2024 12:00 AM EDT) PATHOLOGY REQUEST FOR LAB IVONNE 10/30/2024 8:43 AM EDT [facility] Comment:See report. Scanned copy available in EMR. Other Topography unknown / Unknown 10/21/2024 10/22/2024 1:51 PM EDT us Wilman Griffiths DO LAB BLOOD ORDERABLES Final Resul t Performing Organization Address City/State/[facility] Co de Phone Number [facility] [address] [place] [address], [facility] [address] [place] [address] documented in this encounter Visit Diagnoses Not on filedocumented in this encounter Care Teams Manager Fire Relationship Specialty Start Date End Date Carly Rice MD [address] [place] [address] PCP - General Family Medicine 03/22/23 documented as of this encounter
--- OUTSIDE RECORDS SUMMARY | 2024-10-30 14:02 | XMS_ITS | Encounter Summary ---
Author Organization [facility] Address [address] [place] [address] Care Team Providers Care Manager Crisis Name Role Phone Carly Rice MD Primary Care Provider + [phone] Encounter Details Date Type Department Care Team (Late Contact Info) Description 10/21/2024 Bamboo flowsheet [facility] OB [address] [place] [address] Wilman Griffiths [address] [place], [place] [address] Social History Tobacco Use Types Packs/Day Years [...] EST Office Visit [facility] [address] [place] [address] Wilman Griffiths, [address] [place] [address] [place] [address] documented as of this encounter Visit Diagnoses Not on filedocumented in this encounter Care Teams Manager Crisis Relationship Specialty Start Date End Date Carly Rice MD [address] [place] [address] PCP - General Family Medicine 03/22/23 documented as of this encounter
--- OUTSIDE RECORDS SUMMARY | 2024-10-30 14:03 | XMS_ITS | Encounter Summary ---
Author Organization [facility] Address [address] [place] [address] Phone Care Team Providers Care Electric Clock Mechanic Name Role Phone Unavailable Primary Care Provider Unavailabl e Encounter Details Date Type Department Care Team (Late st Contact Info) Description 11/24/2022 Orders Only [facility] [address] [place] [address] Conversion, Onbase Social History Tobacco Use Types Packs/Day Years Used Date Smoking Tobacco: Never Assessed Comments Unknown Sex and Gender Information Value Date Recorded Sex Assigned at Not on file Legal Sex Female 10:20 AM EST Gender Identity Not on file Sexual Orientation Not on file documented as of this encounter Plan of Treatment Upcoming Encounters Date Type Department Care Team (Late st Contact Info) Description 11/27/2024 2:30 PM EDT Office Visit [facility] [address] [place] [address] [place] [address] [place] [address] Scheduled Orders Name Type Priority Associated Diagnoses Orde r Schedule OUTSIDE LAB SCAN Lab Ordered: 11/24/2022 documented as of this encounter Visit Diagnoses Not on filedocumented in this encounter
--- OUTSIDE RECORDS SUMMARY | 2024-10-30 14:03 | XMS_ITS | Encounter Summary ---
Author Organization [facility] Address [address] [place] [address] Care Team Providers Care Learning And Development Analyst Name Role Phone Carly Rice MD Primary Care Provider + [phone] Encounter Details Date Type Department Care Team (Late Contact Info) Description 10/19/2023 Clinisync Result Encounter [facility] External Department Unsolicited Wilman Griffiths, [address] [place] [address] Social History Tobacco Use Types Packs/Day Years [...] drinks on one occasion? Never 03/10/2023 Comments Unknown Sex and Gender Information Value [...] [facility] [address] [place] [phone] Wilman Griffiths DO [address] [place] [address] documented as of this encounter Procedures Procedure Name Priority Date/Time Associated Diagnosis Comments BI US BREAST LIMITED RIGHT 10/19/2023 4:02 PM EDT documented in this encounter Results * Right breast US limited (10/19/2023 4:02 PM EDT) Anatomical Region Laterality Modality Breast Right Ultrasound 10/19/2023 4:02 PM EDT Narrative 10/19/2023 4:03 PM EDT [address] [address] Ultrasound Report Signed Patient: SUSHMA LEWIS MR#: [id number] : 1975 Acct:[id number] Age/Sex: 47 / F ADM Date: 10/19/23 Loc: MAMMO Attending Dr: Wilman Griffiths D.O. Ordering Physician: Wilman Griffiths D.O. Date of Service: 10/19/23 Procedure(s): US breast RT limited Accession Number(s): [id number] cc: Wilman Griffiths D.O.; Physician,Non-Staff [place] Patient Name: SUSHMA LEWIS MR#: [id number] : 1975 Exam Date: 10/19/2023 Ordering Doctor: [...] prostate cancer at age 60. LOCATION: [facility] BREAST COMPOSITION: There are scattered areas of [...] Signed By: 10/19/23 1603 DD/ 1602 TD/TT: Prepared [employer] Production Team Member: Procedure Note Radiology, Radiologist, MD - 10/19/2023 [place] [address] Ultrasound Report Signed Patient: SUSHMA LEWIS RMR#: [id number] : 1975Acct:[id number] Age/Sex: 47 / FADM Date: 10/19/23 Loc: MAMMO Attending Dr: Wilman Griffiths D.O. Ordering Physician: Wilman Griffiths D.O. Date of Service: 10/19/23 Procedure(s): US breast RT limited Accession Number(s): [id number] cc: Wilman Griffiths D.O.; Physician,Non-Staff [place] Patient Name: SUSHMA LEWIS MR#: [id number] : 1975 Exam Date: 10/19/2023 Ordering Doctor: [...] prostate cancer at age 60. LOCATION: [facility] BREAST COMPOSITION: There are scattered areas of [...] Gary Smith M.D. Signed By:10/19/23 1603 DD/ 1602 TD/TT: [employer] Production Team Member: us Wilman Tunde DO IMG US PROCEDURES Final Result documented in this encounter Visit Diagnoses Not on filedocumented in this encounter Care Teams Learning And Development Analyst Relationship Specialty Start Date End Date Carly Rice MD [facility] [place] [address] PCP - General Family Medicine 03/22/23 documented as of this encounter
--- OUTSIDE RECORDS SUMMARY | 2024-10-30 14:03 | XMS_ITS | Patient Health Record ---
Author Organization [facility] [place] Address [address] [place] [address] Care Team Providers Care Cardiac Cath Rn Name Role Phone Carly Rice Primary Care Provider Allergies Allergen (clinical drug ingredient) Drug/Non Drug Allergy documented on EMR Reaction Allergy Type Onset Date Status amoxicillin Amoxicillin Hives Drug Allergy Act peyton Results Component Value Reference Range Notes Cologperlita Reviewed date:11/30/2023 08:46:28 AM Interpretation:cancelled Performing Lab: Notes/Report: Cologuard Result Cancelled - Order Not Applica ble Reason For Referral No Information Medications Medication SIG (Take, Route, Frequency, Duration) Notes Start Date End Date Status Lisinopril 5 MG Take 1 tablet by mouth once daily for 90 Active Slynd 4 MG 1 tablet Orally Once a day for 30 day(s) Not-Taking Citalopram Hydrobromide 20 MG Take 1 tablet by mouth once daily for 90 Active metFORMIN HCl ER 500 MG 1 tablet with evening meal Orally Once a day Active Levothyroxine Sodium 112 MCG 1 tablet in the morning on an empty stomach Orally Once a day for 30 days 02/19/23-xuan branch cancel the 150mcg, she will be on the 112mcg 02/19/2023 Active Immunizations Vaccine Route Administration Date Status Comme nts Flu, Flublok (19181) 18yr+, single-dose (3333-9166) Unknown 01/08/2022 Administered SARS-COV-2 (COVID 19 Moderna - 100mcg/0.5mL) Unknown 06/30/2020 Administered SARS-COV-2 (COVID 19 Moderna - 100mcg/0.5mL) Unknown 07/31/2020 Administered SARS-COV-2 (COVID 19 Moderna - Booster 0.25mL) Unknown 03/27/2021 Administered Tdap Unknown 04/01/2020 Administered Social History Tobacco Use: Social History Observation Description Date Details (start date - stop date) Never Smoker NA - NA Tobacco Use/Smoking Question Answer Notes Patient is a nonsmoker Alcohol Screen (Audit-C) Question Answer Notes Did you have a drink containing alcohol in the p ast year? No Points 0 Interpretation Negative Section Notes: Going thru separation 12/13 Going thru separation 12/13 Problems Problem Type SNOMED Code ICD Code Onset Dates Problem Status W/U Status Risk Notes Problem Depression (427493116) Depression (F32.9) Active confirmed Problem 469814457 Acquired hypothyroidism (E03.9) Active confirmed Problem 83930582 Iron deficiency anemia, unspecified iron deficiency anemia type (D50.9) Active confirmed Problem 90916531 Hypertension, unspecified type (I10) Active confirmed Vital Signs Heart Rate 73 /min 12/20/2023 weight up 4 rubi nds in last 10months Respiratory Rate 16 /min 12/20/2023 weight up 4 pounds in last 10months Blood pressure diastolic 74 mm Hg 12/20/2023 anmol ght up 4 pounds in last 10months Oximetry 99 % 12/20/2023 weight up 4 rubi nds in last 10months Height 62 in 12/20/2023 weight up 4 rubi nds in last 10months Blood pressure systolic 114 mm Hg 12/20/2023 weig ht up 4 pounds in last 10months Weight 141 lbs 12/20/2023 weight up 4 rubi nds in last 10months BMI 25.79 kg/m2 12/20/2023 weight up 4 rubi nds in last 10months Encounters Encounter Location Date Provider Diagnosis [facility] [address] [place] [address] 11/19/2023 Carly Rice [facility] [address] [place] [address] 12/20/2023 Carly Rice Hypertension, unspecified type I10 ; Encounter for general adult medical examination without abnormal findings Z00.00 ; Acquired hypothyroidism E03.9 ; Depression F32.9 and Encounter for screening for malignant neoplasm of colon Z12.11 Assessments Encounter Date Diagnosis (ICD Code) Assessment Notes Treatment Notes Treatment Clinical Notes Section Notes 12/20/2023 Hypertension, unspecified type (ICD-10 - I10) Ok to try to wean off the BP med 12/20/2023 Encounter for general adult medical examination without abnormal findings (ICD-10 - Z00.00) 12/20/2023 Acquired hypothyroidism (ICD-10 - E03.9) Stable, continue to follow with jose in [place] 12/20/2023 Depression (ICD-10 - F32.9) Stable, with citalopram - will continue 12/20/2023 Encounter for screening for malignant neoplasm of colon (ICD-10 - Z12.11) Plan Of Treatment Pending Test Test Name Order Date CMP (COMPLETE METABOLIC PANEL) LIPID PANEL (CHOL/TRIG/HDL/LDL) 12/20/19 CBC WITH DIFF 12/20/2023 T4 FREE and TSH 02/05/2023 Cologuard 12/20/2023 Insurance Providers Payer Name Payer Address Payer Phone Subscriber Number Group Number Insured Name Patient Relationship to Insured Coverage Start Date Coverage End Date [employer] [place] [address] [place] [address] [id number] Nicole Chaparro Self - patient is the insured 3 Medical (General) History Medical History History ICD Code HTN Hypothyroid - sees Dr. Jamie garcia in [place] H/o infertility H/o iron deficiency anemia Post- depression Surgical History Surgery Date(Month/Year) Hospitalization History Reason Date(Month/Year) Child -Also had a blood transfusion 05/2020
--- OUTSIDE RECORDS SUMMARY | 2024-10-30 14:03 | XMS_ITS | Encounter Summary ---
Author Organization [facility] Address [address] [place] [address] Phone Care Team Providers Care Dean Of Women Name Role Phone Unavailable Primary Care Provider Unavailabl e Encounter Details Date Type Department Care Team (Late st Contact Info) Description 11/23/2022 Orders Only [facility] [address] [place] [address] Conversion, Onbase Social History Tobacco Use Types [...] Description 11/27/2024 2:30 PM EDT Office Visit [facility] [address] [place] [address] [place] [address] [place] [address] Scheduled Orders Name Type Priority Associated Diagnoses Orde r Schedule OUTSIDE LAB SCAN Lab Ordered: 11/23/2022 documented as of this encounter Visit Diagnoses Not on filedocumented in this encounter
--- OUTSIDE RECORDS SUMMARY | 2024-10-30 14:03 | XMS_ITS | Encounter Summary ---
Author Organization [facility] Address [address] [facility] [place] [address] Care Team Providers Care Detention Officer Name Role Phone Carly Rice MD Primary Care Provider + [phone] Encounter Details Date Type Department Care Team (Late st Contact Info) Description 04/01/2024 Orders Only [facility] [address] [place] [address] Kinsey Vela LPN [address] [place] [address] Social History Tobacco Use Types Packs/Day Years [...] 03/30/2025 2:00 PM EST Office Visit [facility] [address] [place] [address] Wilman Griffiths, DO [address] [place] [address] [place] [address] documented as of this encounter Procedures Procedure Name Priority Date/Time Associated Diagnosis Comments PAP SMEAR Routine 03/25/2024 12:00 AM EST documented in this encounter Results * Pap Smear (03/25/2024 12:00 AM EST) Swab Cervical swab / Unknown Tunde Nurse [facility] CYTOLOGY ORDERABLES Final Result EXTERNAL LAB documented in this encounter Visit Diagnoses Not on filedocumented in this encounter Care Teams Detention Officer Relationship Specialty Start Date End Date Carly Rice MD [address] [place] [address] PCP - General Family Medicine 03/22/23 documented as of this encounter
--- OUTSIDE RECORDS SUMMARY | 2024-10-30 14:03 | XMS_ITS | Clinical Summary ---
Author Organization [facility] Address [address] [place] [address] Phone Care Team Providers Care Interactive Project Manager Name Role Phone Unavailable Primary Care Provider Unavailabl e Allergies Active Allergy Reactions Criticality Noted Date Comments Penicillins Hives 11/29/2023 Medications lisinopril 5 mg tablet 1 tablet (5 mg) once every 24 hours. 3 Active metFORMIN XR 500 mg 24 hr tablet Take 1 tablet (500 mg) by mouth. 3 Active citalopram (CeleXA) 20 mg tablet Take 1 tablet (20 mg) by mouth once daily. Active levothyroxine (Synthroid, Levoxyl) 125 mcg tabletIndicatio ns:Hypothyroidi sm, unspecified type Take 1 tablet by mouth once daily 90 tablet 5 Active ergocalciferol (Vitamin D-2) 1250 mcg (50,000 units) capsuleIndicati ons:Vitamin D deficiency Take 1 capsule by mouth once a week 12 capsule 5 Active ergocalciferol (Vitamin D-2) 1.25 MG (59171 UT) capsuleIndicati ons:Vitamin D deficiency Take 1 capsule (1,250 mcg) by mouth 1 (one) time per week. 12 capsule 2 4 025 Discontinued Encounters Date Type Department Care Team Description 10/20/2024 Orders Only [address] [place] [address] Aramis Caputo CMA Thyroid cancer (Multi); Hypothyroidism, unspecified type; Vitamin D deficiency 10/19/2024 Refill [facility] [address] [place] [address] [address] [place] [address] Jamie Finn MD Vitamin D deficiency 09/14/2024 Refill [facility] [address] [facility] [address] [place] [address] Jamie Finn MD Hypothyroidism, unspecified type from Last 3 Months Social History Tobacco Use Types Packs/Day Years Used Date Smoking Tobacco: Never Assessed Comments Unknown Sex and Gender Information Value Date Recorded Sex Assigned at Not on file Legal Sex Female 10:20 AM EST Gender Identity Not on file Sexual Orientation Not on file Last Filed Vital Signs Vital Sign Reading Time Taken Comments Blood Pressure 116/64 11/29/2023 10:56 AM EDT Pulse - - Temperature - - Respiratory Rate - - Oxygen Saturation - - Inhaled Oxygen Concentration - - Weight 64.9 kg (143 lb) 11/29/2023 10:56 AM EDT Height 157.5 cm (5' 2 ) 11/29/2023 10:56 AM EDT Body Mass Index 26.16 11/29/2023 10:56 AM EDT Plan of Treatment Upcoming Encounters Date Type Department Care Team (Late st Contact Info) Description 11/27/2024 2:30 PM EDT Office Visit [facility] [address] [place] [address] [address] [place] [phone] [place] [address] [facility] [address] [place], [place] [phone] Health Maintenance Due Date Last Done Comments CT Colonography 1975 Colonoscopy 1975 Colorectal Cancer Screening 1975 FIT-DNA (Cologuard) 1975 FIT 1975 HIV Screening 1975 Lipid Panel 1975 Sigmoidoscopy 1975 Hepatitis C Screening 1992 Cervical Cancer Screening 11/21/1995 HPV/Cotest 11/21/1995 Pap Smear 11/21/1995 COVID-19 Vaccine ( season) 2023 03/27/2021, 07/31/2020, 06/30/2020 Yearly Adult Physical 03/23/2024 03/22/2023 Mammogram 10/18/2024 10/19/2023, 11/2 04/2021, 03/13/2022 Zoster Vaccines (1 of 2) 2024 TSH Level 11/28/2024 11/29/2023, 11/0 10/2022, 05/24/2022 Thyroglobulin Test 11/28/2024 11/29/2023, 05/24/2022 Influenza Vaccine (#1) 2024 , 01/08/2022, 01/09/2021, Additional history exists Diabetes Screening 05/24/2025 05/24/2022 DTaP/Tdap/Td Vaccines (2 - Td or Tdap) 04/01/2030 04/01/2020 MMR Vaccines Completed 08/26/2015 Hepatitis A Vaccines Aged Out 03/01/2019, 11/10/2018, 08/03/2018 No longer eligible based on patient's age to complete this topic Hepatitis B Vaccines Completed 03/01/2019, 11/10/2018, 08/03/2018 HIB Vaccines Aged Out No longer eligi ble based on patient's age to complete this topic HPV Vaccines (No Doses Required) Completed IPV Vaccines Aged Out No longer eligi ble based on patient's age to complete this topic Meningococcal Vaccine Aged Out No shena jr eligible based on patient's age to complete this topic Pneumococcal Vaccine: Pediatrics and At-Risk Adult Patients Aged Out No longer eligible based on patient's age to complete this topic Rotavirus Vaccines Aged Out No longer eligible based on patient's age to complete this topic Procedures Procedure Name Priority Date/Time Associated Diagnosis Comments THYROGLOBULIN AND ANTITHYROGLOBULIN Routine 11/29/2023 11:41 AM EDT Thyroid cancer (Multi) TSH WITH REFLEX TO FREE T4 IF ABNORMAL Routine 11/29/2023 11:41 AM EDT Thyroid cancer (Multi) COMPREHENSIVE METABOLIC PANEL Routine 05/24/2022 2:36 PM EST from Last 3 Months or Most Recently Relevant to Health Maintenance Results * (ABNORMAL) Thyroglobulin + Antithyroglobulin (11/29/2023 11:41 AM EDT) Thyroglobulin <0.1(L) 1.3 - 31.8 ng/mL 12/02/2023 10:05 PM EDT [facility] ([facility]) Comment: INTERPRETIVE INFORMATION: Thyroglobulin, Serum or Plasma Specimens negative for thyroglobulin antibodies (TgAb) are tested for thyroglobulin (Tg) by chemiluminescent immunoassay (NA) using the [employer] [place] Access DxI method. Specimens with TgAb results [...] of thyroid cancer in the general population. Thyroglobulin LC-MS/MS Not Applicable 1.3 - 31.8 ng/mL 12/02/2023 10:05 PM EDT [facility] ([facility]) Comment: INTERPRETIVE INFORMATION: Thyroglobulin by LC-MS/MS, Serum/Plasma Lower limit of detection for Thyroglobulin by LC-MS/MS is 0.5 ng/mL. This test was developed and its performance characteristics determined by [facility]. It has not been cleared or approved by the US Food and Drug Administration. This test was performed in a CLIA certified laboratory and is intended for clinical purposes. Performed By: [facility] [address] [place] [address] [address] Hand: Kaz Oh MD, PhD CLIA Number: [id number] Anti-Thyroglobulin AB <0.9 0.0 - 4.0 IU/mL 12/02/2023 10:05 PM EDT [facility] ([facility]) Comment: INTERPRETIVE INFORMATION: Thyroglobulin Antibody A value of 4.0 IU/mL or less indicates a negative result for thyroglobulin antibodies. The Thyroglobulin Antibody assay is being performed using the Re[employer] [place] Access DxI method. Blood Venous blood specimen / Unknown Venipuncture / Unknown 11/29/2023 11:41 AM EDT 11/29/2023 11:41 AM EDT Jamie Finn MD LAB BLOOD ORDERABLES Final R esult [facility] ([facility]) [address] [place] [address] * TSH with reflex to Free T4 if abnormal (11/29/2023 11:41 AM EDT) Thyroid Stimulating Hormone 0.64 0.44 - 3.98 mIU/L LAB IMMUNOASSAY METHOD 11/29/2023 8:37 PM EDT [facility] Blood Venous blood specimen / Unknown Venipuncture / Unknown 11/29/2023 11:41 AM EDT 11/29/2023 11:41 AM EDT Narrative [facility] - 11/29/2023 8:37 PM EDT TSH testing is performed using different testing methodology at [facility] than at other [facility]. Direct result comparisons should only be made within the same method. Jamie Finn MD LAB BLOOD ORDERABLES Final R esult [facility] [address] [place] [address] * Comprehensive Metabolic Panel (05/24/2022 2:36 PM EST) Glucose 85 74 - 99 mg/dL [facility] Sodium 138 136 - 145 mmol/L [facility] Potassium 3.7 3.5 - 5.3 mmol/L [facility] Chloride 105 98 - 107 mmol/L [facility] Bicarbonate 26 21 - 32 mmol/L [facility] Anion Gap 11 10 - 20 mmol/L [facility] Urea Nitrogen 12 6 - 23 mg/dL [facility] Creatinine 0.79 0.50 - 1.05 mg/dL [facility] GFR Female >90 >90 mL/min/1.7 3m2 [facility] Comment: CALCULATIONS OF ESTIMATED GFR ARE PERFORMED USING THE 2020 CKD-EPI STUDY REFIT EQUATION WITHOUT THE RACE VARIABLE FOR THE IDMS-TRACEABLE CREATININE METHODS. https://jasn.asnjournals.org/content//ASN.8094294187 Calcium 8.7 8.6 - 10.3 mg/dL [facility] Albumin 3.9 3.4 - 5.0 g/dL [facility] Alkaline Phosphatase 57 33 - 110 U/L [facility] Total Protein 7.3 6.4 - 8.2 g/dL [facility] AST 15 9 - 39 U/L [facility] Total Bilirubin 0.3 0.0 - 1.2 mg/dL [facility] ALT (SGPT) 12 7 - 45 U/L [facility] Comment: Patients treated with Sulfasalazine may generate falsely decreased results for ALT. 05/24/2022 2:36 PM EST 05/24/2022 8:57 PM EST Jamie Finn MD LAB BLOOD ORDERABLES Final R esult [facility] [address] [place] [address] from Last 3 Months or Most Recently Relevant to Health Maintenance Insurance [address] [place] [address] HEALTHCARE [employer]
--- OUTSIDE RECORDS SUMMARY | 2024-10-30 14:03 | XMS_ITS | Encounter Summary ---
Author Organization [facility] Address [address] [place] [address] Phone Care Team Providers Care Photoengraving Retoucher Name Role Phone Unavailable Primary Care Provider Unavailabl e Encounter Details Date Type Department Care Team (Late st Contact Info) Description 12/06/2022 Orders Only [facility] [address] [place] [address] Conversion, Onbase Social History Tobacco Use Types [...] Description 11/27/2024 2:30 PM EDT Office Visit [facility] [address] [place] [phone] [place] [address] [place] [address] Scheduled Orders Name Type Priority Associated Diagnoses Orde r Schedule OUTSIDE LAB SCAN Lab Ordered: 12/06/2022 documented as of this encounter Visit Diagnoses Not on filedocumented in this encounter
--- OUTSIDE RECORDS SUMMARY | 2024-10-30 14:03 | XMS_ITS | Encounter Summary ---
Author Organization [facility] Address [address] [place] [address] Phone Care Team Providers Care [place] Name Role Phone Unavailable Primary Care Provider Unavailabl e Reason for Visit * Reason Comments Med Refill Encounter Details Date Type Department Care Team (Late st Contact Info) Description 10/19/[address] [place] [phone] Jamie Finn MD [address] [place] [address] [address] [place] [address] Vitamin D deficiency Social History Tobacco Use Types Packs/Day Years Used Date Smoking Tobacco: Never Assessed Comments Unknown Sex and Gender Information Value Date Recorded Sex Assigned at Not on file Legal Sex Female 10:20 AM EST Gender Identity Not on file Sexual Orientation Not on file documented as of this encounter Plan of Treatment Upcoming Encounters Date Type Department Care Team (Late Contact Info) Description 11/27/2024 2:30 PM EDT Office Visit [facility] [address] [place] [phone] Jamie Finn MD [address] [place] [address] [address] [place] [address] documented as of this encounter Visit Diagnoses Diagnosis Vitamin D deficiency documented in this encounter
--- OUTSIDE RECORDS SUMMARY | 2024-10-30 14:03 | XMS_ITS | Encounter Summary ---
Author Organization [facility] Address [address] [place] [address] Phone Care Team Providers Care Body Shop Supervisor Name Role Phone Unavailable Primary Care Provider Unavailabl e Encounter Details Date Type Department Care Team (Late Contact Info) Description 10/20/2024 Orders Only [facility] [address] [place] [phone] Aramis Caputo CMA Thyroid cancer (Multi); Hypothyroidism, unspecified type; Vitamin D deficiency Social History Tobacco Use [...] Description 11/27/2024 2:30 PM EDT Office Visit [facility] [address] [place] [address] [address] [place] [address] [place] [address] [place] [address] [address] [place] [address] Scheduled Orders Name Type Priority Associated Diagnoses Orde r Schedule TSH Lab Routine Thyroid cancer (Multi) Hypothyroidism, unspecified type Expected: 10/21/2024 (Approximate), Expires: 10/20/2025 Thyroglobulin + Antithyroglobulin Lab Routine Thyroid cancer (Multi) Hypothyroidism, unspecified type Expected: 10/21/2024 (Approximate), Expires: 10/20/2025 Vitamin D 25-Hydroxy,Total (for eval of Vitamin D levels) Lab Routine Thyroid cancer (Multi) Hypothyroidism, unspecified type Vitamin D deficiency Expected: 10/21/2024 (Approximate), Expires: 10/20/2025 T4, free Lab Routine Thyroid cancer (Multi) Hypothyroidism, unspecified type Expected: 10/21/2024 (Approximate), Expires: 10/20/2025 documented as of this encounter Visit Diagnoses Diagnosis Thyroid cancer (Multi) Malignant neoplasm of thyroid gland Hypothyroidism, unspecified type Vitamin D deficiency documented in this encounter
--- OUTSIDE RECORDS SUMMARY | 2024-10-30 14:03 | XMS_ITS | Encounter Summary ---
Author Organization [facility] Address [address] [place] [address] Care Team Providers Care Threading Machine Operator Name Role Phone Carly Rice MD Primary Care Provider + [phone] Encounter Details Date Type Department Care Team (Late Contact Info) Description 10/19/2023 Clinisync Result Encounter [facility] External Department Unsolicited Wilman Griffiths, [address] [place] [address] Social History Tobacco Use Types Packs/Day Years [...] 03/30/2025 2:00 PM EST Office Visit [facility] [address] [place] [phone] Wilman Griffiths DO [address] [place] [address] documented as of this encounter Procedures Procedure Name Priority Date/Time Associated Diagnosis Comments MM TOMOSYNTHESIS DIAGNOSTIC BI 10/19/2023 4:02 PM EDT documented in this encounter Results * MM TOMOSYNTHESIS DIAGNOSTIC BI (10/19/2023 4:02 PM EDT) Anatomical Region Laterality Modality Other 10/19/2023 4:02 PM EDT Narrative 10/19/2023 4:03 PM EDT The [address] [address] Mammography Report Signed Patient: SUSHMA LEWIS MR#: [id number] : 1975 Acct:[id number] Age/Sex: 47 / F ADM Date: 10/19/23 Loc: MAMMO Attending Dr: Wilman Griffiths D.O. Ordering Physician: Wilman Griffiths D.O. Results: Date of Service: 10/19/23 Follow Up: Procedure(s): MM tomosynthesis diagnostic BI Accession Number(s): [id number] cc: Wilman Griffiths D.O.; Physician,Non-Staff [place] Patient Name: SUSHMA LEWIS MR#: [id number] : 1975 Exam Date: 10/19/2023 Ordering Doctor: [...] prostate cancer at age 60. LOCATION: The [facility] BREAST COMPOSITION: There are scattered areas of [...] PALPABLE LUMP SHOULD BE BIOPSIED. Dictated by: Gayr Smith MD on 10/19/2023 at 16:00 Approved by: Gary Smith MD on 10/19/2023 at 16:02 Dictated By: Gary Smith M.D. Signed By: 10/19/23 1603 DD/ 1602 TD/TT: Undraped Artist Model: Procedure Note Radiology, Radiologist, MD - 10/19/2023 [place] [address] Mammography Report Signed Patient: SUSHMA LEWIS RMR#: [id number] : 1975Acct:[id number] Age/Sex: 47 / FADM Date: 10/19/23 Loc: MAMMO Attending Dr: Wilman Griffiths D.O. Ordering Physician: Wilman Griffiths D.O.Results: Date of Service: 10/19/23Follow Up: Procedure(s): MM tomosynthesis diagnostic BI Accession Number(s): [id number] cc: Wilman Griffiths D.O.; Physician,Non-Staff [place] Patient Name: SUSHMA LEWIS MR#: [id number] : 1975 Exam Date: 10/19/2023 Ordering Doctor: [...] prostate cancer at age 60. LOCATION: [facility] BREAST COMPOSITION: There are scattered areas of [...] M.D. Signed By:10/19/23 1603 DD/ 1602 TD/TT: Undraped Artist Model: [facility] Tunde DO [facility] Final Result documented in this encounter Visit Diagnoses Not on filedocumented in this encounter Care Teams Threading Machine Operator Relationship Specialty Start Date End Date Carly Rice MD [address] [place] [address] PCP - General Family Medicine 03/22/23 documented as of this encounter
--- OUTSIDE RECORDS SUMMARY | 2024-10-30 14:03 | XMS_ITS | Encounter Summary ---
Author Organization [facility] Address [address] [place] [address] Phone Care Team Providers Care Horse Show Manager Name Role Phone Unavailable Primary Care Provider Unavailabl e Encounter Details Date Type Department Care Team (Late st Contact Info) Description 06/06/2022 Orders Only [facility] [address] [place] [address] Conversion, Onbase Social History Tobacco Use Types [...] Description 11/27/2024 2:30 PM EDT Office Visit [facility] [address] [place] [phone] [place] [address] [place] [address] Scheduled Orders Name Type Priority Associated Diagnoses Orde r Schedule OUTSIDE LAB SCAN Lab Ordered: 06/06/2022 documented as of this encounter Visit Diagnoses Not on filedocumented in this encounter
--- OUTSIDE RECORDS SUMMARY | 2024-10-30 14:03 | XMS_ITS | Encounter Summary ---
Author Organization [facility] Address [address] [place] [address] Phone Care Team Providers Care Process Control Board Operator Name Role Phone Unavailable Primary Care Provider Unavailabl e Encounter Details Date Type Department Care Team (Late st Contact Info) Description 10/29/2023 Scanned Document [facility] [id number] [place] [address] [address] [place] [address] Jamie Finn MD [address] [place] [address] [address] [place] [phone] Social History Tobacco Use Types Packs/Day Years [...] Description 11/27/2024 2:30 PM EDT Office Visit [facility] [id number] [place] [address] [address] [place] [phone] Jamie Finn MD [address] [place] [address] [address] [place] [address] documented as of this encounter Visit Diagnoses Not on filedocumented in this encounter
== END 2024-10-21 14:00 | disposition home or self-care (01) ==
LOC: LAB 13:59
PROVIDERS: Visit Provider Obstetrics & Gynecology
DX: N84.1 Polyp of cervix uteri (principal)